=== PATIENT | female | born 1935 | race Caucasian/White ===

== ENCOUNTER → 2016-11-21 | Outpatient (CLI) | payer OTHER ==
[~2016-11-21] MED LIST: /WARF25TA OR; ACET65TA OR; KEFL500C OR; MELOPOW PO; PERC5TAB8 OR; POTA-77 PO; TRIAMTERENE; TRIAMTERENE PO; VITAMIN C PO
[2016-11-21 08:01] LABS: MEAN CORPUSCULAR HEMOGLOBIN 31.9 pg (27.0-33.0); MEAN CORPUSCULAR HGB CONC 32.4 g/dl (32.0-36.5); MEAN CORPUSCULAR VOLUME 98.4 fl (80.0-96.0); RED CELL DISTRIBUTION WIDTH 12.8 % (11.5-14.5); WHITE BLOOD COUNT 4.5 10^3/uL (4.0-10.0)
[2016-11-21 08:17] LABS: ALBUMIN 3.7 GM/DL (3.2-5.2); ALBUMIN/GLOBULIN RATIO 0.97 (1.00-1.93); ALKALINE PHOSPHATASE 82 U/L (45-117); ALT/SGPT 29 U/L (12-78); ANION GAP 5 MEQ/L (8-16); AST/SGOT 29 U/L (15-37); BILIRUBIN,TOTAL 0.6 MG/DL (0.2-1.0); BLOOD UREA NITROGEN 24 MG/DL (7-18); CALCIUM LEVEL 8.9 MG/DL (8.8-10.2); CARBON DIOXIDE LEVEL 33 MEQ/L (21-32); CHLORIDE LEVEL 104 MEQ/L (98-107); CHOLESTEROL LEVEL 123 MG/DL (<200); CREATININE FOR GFR 0.75 MG/DL (0.55-1.02); GLOMERULAR FILTRATION RATE > 60.0 (>32); GLUCOSE, FASTING 94 MG/DL (83-110); POTASSIUM SERUM 3.6 MEQ/L (3.5-5.1); SODIUM LEVEL 142 MEQ/L (136-145); TOTAL PROTEIN 7.5 GM/DL (6.4-8.2); TRIGLYCERIDES LEVEL 74 MG/DL (<150)
[2016-11-21 08:29] LABS: BANDS 1 % (< 11); EOSINOPHILS 4 % (0-5)
== END ==
LOC: M LAB 07:29
PROVIDERS: ATTEND Family Medicine
DX: E11.9 Type 2 diabetes mellitus without complications (principal); I10 Essential (primary) hypertension

== ENCOUNTER → 2018-02-14 | Outpatient (REF) | payer OTHER ==
[~2018-02-14] MED LIST changes: +ATOR1TAB19 PO; +LISI20TA3 PO; +MULT1TAB10 PO; +TYLE325T5 PO
[2018-02-14 12:59] LABS: BASO % 0.4 % (0.0-1.0); EOS # 0.1 10^3/uL (0.0-0.50); HEMATOCRIT 42.2 % (36.0-47.0); HEMOGLOBIN 13.5 g/dl (12.0-15.5); LYMPH # 1.3 10^3/uL (1.5-4.5); LYMPH % 28.7 % (24.0-44.0); MONO # 0.5 10^3/uL (0.0-0.8); MONO % 11.6 % (0.0-5.0); NEUTROPHILS # 2.6 10^3/uL (1.8-7.7); NEUTROPHILS % 57.1 % (36.0-66.0); PLATELET COUNT, AUTOMATED 128 10^3/uL (150-450); RED BLOOD COUNT 4.22 10^6/uL (4.00-5.40); WHITE BLOOD COUNT 4.6 10^3/uL (4.0-10.0)
[2018-02-14 13:04] LABS: ALBUMIN 3.6 GM/DL (3.2-5.2); ALT/SGPT 25 U/L (12-78); BILIRUBIN,TOTAL 0.4 MG/DL (0.2-1.0); BLOOD UREA NITROGEN 19 MG/DL (7-18); CALCIUM LEVEL 8.6 MG/DL (8.8-10.2); CARBON DIOXIDE LEVEL 32 MEQ/L (21-32); CHLORIDE LEVEL 105 MEQ/L (98-107); CHOLESTEROL LEVEL 123 MG/DL (<200); CHOLESTEROL RISK RATIO 2.411 (<5); CREATININE FOR GFR 0.78 MG/DL (0.55-1.30); GLOMERULAR FILTRATION RATE > 60.0 (>32); GLUCOSE, FASTING 95 MG/DL (70-100); HDL CHOLESTEROL 51 MG/DL (>40); LDL CHOLESTEROL 58 MG/DL (<100); NON-HDL-C 72 MG/DL; SODIUM LEVEL 143 MEQ/L (136-145); TOTAL PROTEIN 7.3 GM/DL (6.4-8.2); TRIGLYCERIDES LEVEL 70 MG/DL (<150)
== END ==
LOC: M LABDRWAD 12:10
PROVIDERS: ATTEND Family Medicine
DX: E11.9 Type 2 diabetes mellitus without complications (principal)

== ENCOUNTER 2018-05-22 18:42 | Inpatient (IN) | payer MEDICARE, OTHER ==
[~2018-05-22] VITALS: Ht 170.2 cm; Wt 80.7 kg
[~2018-05-22 18:42] MED LIST changes: -/WARF25TA OR; +COUM1TAB18 OR
[2018-05-22] MEDS ORDERED: NS 1,000 ML IV ONE (19:30)
[2018-05-22] MEDS ORDERED: ONDANSETRON 4MG/2ML VIAL (J2405) IV ONE (19:30)
[2018-05-22 19:36] LABS: BASO % 0.2 % (0.0-1.0); HEMATOCRIT 46.9 % (36.0-47.0); HEMOGLOBIN 15.6 g/dl (12.0-15.5); LYMPH # 0.5 10^3/uL (1.5-4.5); LYMPH % 8.2 % (24.0-44.0); MEAN CORPUSCULAR HEMOGLOBIN 31.8 pg (27.0-33.0); MEAN CORPUSCULAR HGB CONC 33.3 g/dl (32.0-36.5); MEAN CORPUSCULAR VOLUME 95.7 fl (80.0-96.0); MONO # 0.2 10^3/uL (0.0-0.8); MONO % 2.6 % (0.0-5.0); NEUTROPHILS # 5.1 10^3/uL (1.8-7.7); NEUTROPHILS % 88.8 % (36.0-66.0); PLATELET COUNT, AUTOMATED 137 10^3/uL (150-450); WHITE BLOOD COUNT 5.7 10^3/uL (4.0-10.0)
[2018-05-22 19:47] LABS: INR 1.11; PARTIAL THROMBOPLASTIN TIME 26.8 SECONDS (25.4-37.6); PROTHROMBIN TIME 14.5 SECONDS (12.1-14.4)
[2018-05-22] MEDS: MORPHINE 2 MG/ML 1ML SYRINGE (J2270) IV PRN ×2 (19:48→20:44)
[2018-05-22 19:54] LABS: ALBUMIN 3.9 GM/DL (3.2-5.2); ALT/SGPT 32 U/L (12-78); BILIRUBIN,DIRECT 0.2 MG/DL (0.0-0.2); BILIRUBIN,TOTAL 0.5 MG/DL (0.2-1.0); BLOOD UREA NITROGEN 15 MG/DL (7-18); CALCIUM LEVEL 9.1 MG/DL (8.8-10.2); CARBON DIOXIDE LEVEL 21 MEQ/L (21-32); CHLORIDE LEVEL 104 MEQ/L (98-107); CPK CREATINE PHOSPHOKINASE 80 U/L (26-192); CREATININE FOR GFR 0.83 MG/DL (0.55-1.30); GLOMERULAR FILTRATION RATE > 60.0 (>32); GLUCOSE, FASTING 193 MG/DL (70-100); LIPASE 82 U/L (73-393); MB/CK RELATIVE INDEX 4.12 (< OR =4); POTASSIUM SERUM 2.8 MEQ/L (3.5-5.1); SODIUM LEVEL 138 MEQ/L (136-145); TOTAL PROTEIN 7.6 GM/DL (6.4-8.2); TROPONIN I 0.02 NG/ML (< 0.10)
[2018-05-22] MEDS ORDERED: POTASSIUM CHLORIDE 10 MEQ SR TABLET PO ONE (20:00)
[2018-05-22] MEDS ORDERED: ISOVUE-370 76% 100ML VIAL (Q9967) As Ordered ONE (20:25)
[2018-05-22] MEDS ORDERED: PIPERACILLIN/TAZOBACTAM SOD 3.375 GM in D5W MINI-BAG PLUS 50 ML IV ONE (20:45)
--- NOTE | 2018-05-22 20:59 | REP ---
Clinical: Abdominal pain and diarrhea. Technique: Axial contrast enhanced images from the lung bases to the pubic symphysis with coronal and sagittal re-formations using 100 ml Isovue 370 intravenous contrast material. Findings: Severe portomesenteric vein gas is appreciated with in the portal vein and extensively within the liver as well as branches of the superior mesenteric vein extending to the right lower quadrant. There is associated pneumatosis coli as well as diffusely dilated fluid-filled loops of large bowel and dilated fluid-filled small bowel. These findings require mediated tension as bowel infarction is suspected. No free air is identified. Spleen, pancreas, bilateral adrenal glands and right kidney are normal. The gallbladder is distended and includes multiple large gallstones measuring up to approximately 2.3 cm without evidence for acute cholecystitis. The left kidney includes 10 cm cyst. Pelvis demonstrates normal bladder. The uterus is incompletely evaluated due to beam-hardening artifact from left hip prosthesis. No ascites. No significant adenopathy. Atherosclerotic changes to the aorta and vasculature without aneurysm. Musculoskeletal structures demonstrate degenerative changes. Lung bases demonstrate chronic interstitial changes. Impression: 1. Severe findings including portomesenteric vein gas including extensive gas within the liver as well as branches of the superior mesenteric vein extending to the right lower quadrant with pneumatosis colonic, dilated fluid filled large bowel and dilated loops of small bowel. These findings are ominous and highly suspicious for underlying bowel infarction. Immediate surgical consultation is required. 2. These findings were immediately relayed to the ER physician. 3. Further less urgent and chronic findings as described above. Electronically Signed by Shiva Herndon MD 05/22/2018 08:51 P
[2018-05-22] MEDS ORDERED: NS IV ONE (21:00)
[2018-05-22] MEDS ORDERED: DILUENT IV ONE (21:00)
[2018-05-22] MEDS ORDERED: PRESCAP6 PO (21:12)
[2018-05-22] MEDS ORDERED: ATOR1TAB19 PO (21:12)
[2018-05-22] MEDS ORDERED: GLUCAGON FOR INJ 1 MG VIAL (J1610) As Ordered ONE (21:40)
[2018-05-22] MEDS ORDERED: KCL 10MEQ/100ML SWI (KRUN) 100 ML IV SCH (22:00)
--- NOTE | 2018-05-22 22:16 | ECGEPIP ---
Stationary ECG Study [facility] - ED Test Date: 2018-05-22 Pat Name: CHERRI BLOOD Department: Room: - Gender: F Animal Warden: gt : 1935 Requested By: SKYLAR Finney Order Number: [id number] Reading MD: Harsha Aguilar Measurements Intervals [place] Rate: 141 P: 29 OK: 77 QRS: -39 QRSD: 145 T: 149 QT: 286 QTc: 439 Interpretive Statements SINUS TACHYCARDIA WITH SHORT OK INTERVAL LEFT AXIS DEVIATION LEFT BUNDLE BRANCH BLOCK NO PRIORS FOR COMPARISON Electronically Signed On 05-22-2018 22:16:16 EDT by Harsha Aguilar
[2018-05-22] MEDS ORDERED: ETOMIDATE INJ 20MG/10ML VIAL As Ordered ONE (22:20)
[2018-05-22] MEDS ORDERED: ONDANSETRON 4MG/2ML VIAL (J2405) As Ordered ONE (22:20)
[2018-05-22] MEDS ORDERED: LIDOCAINE 2% INJ 100 MG/5 ML SDV (FOR ANES.) As Ordered ONE (22:20)
[2018-05-22] MEDS ORDERED: dexameTHASONE 4 MG/ML 1ML VIAL (J1100) As Ordered ONE (22:20)
[2018-05-22] MEDS ORDERED: PROPOFOL 200 MG/20 ML VIAL As Ordered ONE (22:20)
[2018-05-22] MEDS ORDERED: fentaNYL 250 MCG/5 ML INJECTION (J3010) As Ordered ONE (22:20)
[2018-05-22] MEDS ORDERED: PHENYLEPHRINE INJ 10MG/ML VIAL (J2370) As Ordered ONE (22:38)
[2018-05-22] MEDS: KCL 10MEQ/100ML SWI (KRUN) 100 ML IV SCH ×2 (22:45→23:45)
[2018-05-22] MEDS ORDERED: KCL 10MEQ/100ML SWI (KRUN) X 2 DOSES (20MEQ TOTAL) IV SCH ×2 (22:45)
[2018-05-22] MEDS ORDERED: ROCURONIUM BROMIDE 50 MG/5 ML VIAL As Ordered ONE (22:47)
[2018-05-22] MEDS ORDERED: BUPIVACAINE LIPOSOME/PF 1.3% 20ML VIAL (13.3MG/ML)(EXPAREL)(C9290 PER1MG) As Ordered ONE (23:29)
[2018-05-22] MEDS ORDERED: BUPIVACAINE HCL 0.25% 30 ML VIAL As Ordered ONE (23:29)
[2018-05-22] MEDS ORDERED: LABETALOL HCL 100 MG/20 ML VIAL As Ordered ONE (23:53)
[2018-05-23] VITALS (37 sets, daily range): BP systolic 92–146; BP diastolic 44–62
[2018-05-23] MEDS ORDERED: fentaNYL 100 MCG/2 ML INJECTION (J3010) IV PRN
[2018-05-23] MEDS ORDERED: HYDROMORPHONE HCL 0.5 MG/ 0.5 ML SYRINGE (J1170 PER 1) IV PRN
[2018-05-23] MEDS ORDERED: PERCOCET 5MG/325MG TAB PO PRN
[2018-05-23] MEDS ORDERED: LR 1,000 ML IV SCH
[2018-05-23] MEDS ORDERED: ONDANSETRON 4MG/2ML VIAL (J2405) IV PRN
[2018-05-23] MEDS: NS 1,000 ML IV SCH ×3 (00:01→16:01)
[2018-05-23] MEDS ORDERED: IPRATROPIUM 0.5MG/ALBUTEROL 2.5MG INH SOL UD 3ML (DUONEB)(J7620) NEB PRN (00:15)
[2018-05-23] MEDS ORDERED: PROMETHAZINE INJ 25 MG/ML VIAL (J2550) IV PRN (00:15)
[2018-05-23] MEDS ORDERED: METOCLOPRAMIDE INJ 10MG/2ML VIAL (J2765) IV PRN ×2 (00:15)
[2018-05-23 00:30] LABS: ABG BASE EXCESS -13.3 (-2.0-2.0); ABG PARTIAL PRESSURE CO2 31.5 mmHg (35.0-45.0); ABG PARTIAL PRESSURE O2 120.6 mmHg (75.0-100.0); ABG STANDARD HCO3 14.3 MEQ/L (22.0-26.0); ABG TOTAL CO2 13.9 MEQ/L (23.0-31.0); MEAN CORPUSCULAR HEMOGLOBIN 31.9 pg (27.0-33.0); MEAN CORPUSCULAR HGB CONC 32.3 g/dl (32.0-36.5); MEAN CORPUSCULAR VOLUME 98.7 fl (80.0-96.0); PLATELET COUNT, AUTOMATED 108 10^3/uL (150-450); RED BLOOD COUNT 3.95 10^6/uL (4.00-5.40)
[2018-05-23 00:38] LABS: HEMOGLOBIN 12.6 g/dl (12.0-15.5)
[2018-05-23 00:39] LABS: ABG pH (ARTERIAL) 7.232 UNITS (7.350-7.450)
[2018-05-23] MEDS: KCL 10MEQ/100ML SWI (KRUN) 100 ML IV SCH ×2 (00:45→01:45)
[2018-05-23 00:54] LABS: ALT/SGPT 38 U/L (12-78); BILIRUBIN,TOTAL 0.6 MG/DL (0.2-1.0); BLOOD UREA NITROGEN 13 MG/DL (7-18); CALCIUM LEVEL 6.7 MG/DL (8.8-10.2); CARBON DIOXIDE LEVEL 17 MEQ/L (21-32); CHLORIDE LEVEL 114 MEQ/L (98-107); CHOLESTEROL LEVEL 56 MG/DL (< 200); CPK CREATINE PHOSPHOKINASE 58 U/L (26-192); GLOMERULAR FILTRATION RATE > 60.0 (>32); GLUCOSE, FASTING 148 MG/DL (70-100); LDH LACTATE DEHYDROGENASE 194 U/L (84-246); POTASSIUM SERUM 3.6 MEQ/L (3.5-5.1); SODIUM LEVEL 140 MEQ/L (136-145); TOTAL PROTEIN 4.1 GM/DL (6.4-8.2); TRIGLYCERIDES LEVEL 47 MG/DL (<150)
[2018-05-23] MEDS: metroNIDAZOLE 500 MG in APPROPRIATE DILUENT 1 EA IV SCH ×3 (01:00→17:11)
[2018-05-23] MEDS: MORPHINE 4 MG/ML 1ML VIAL/SYRINGE (J2270) IV PRN ×3 (01:51→09:01)
[2018-05-23] MEDS: IPRATROPIUM 0.5MG/ALBUTEROL 2.5MG INH SOL UD 3ML (DUONEB)(J7620) NEB SCH ×4 (02:00→19:13)
[2018-05-23] MEDS: CIPROFLOXACIN 400 MG in APPROPRIATE DILUENT 1 EA IV SCH ×2 (02:00→14:22)
[2018-05-23] MEDS ORDERED: PREVNAR 13 VACCINE SYRINGE (CPT CODE:90670) IM SCH (06:30)
--- NOTE | 2018-05-23 06:52 | CCN ---
DATE: 05/23/2018 Critical care time was 59 minutes. This excludes all procedures. Dea is an 82-year-old female that was taken urgently to the operating room for ischemic colitis, had right colectomy with reanastomosis, actually tolerated the procedure surprisingly well despite the appearance of the CT scan with the severity of pneumobilia and the air in the portal venous system. I was called at the time that she was in the recovery room. On my arrival the patient was extubated. She was able to speak, telling me that she had no pain, no dyspnea, however, she was slightly sleepy. I had ordered an arterial blood gases, it is still currently pending. Oxygen saturation at that point in time was 96% on non-rebreather. She had a right radial arterial line in place. History of breast cancer with lymph node dissection on the left. Patient received labetalol for hypertension perioperatively. Temperature is 97.6, pulse was 88 now in sinus rhythm. The patient did appear to have atrial fibrillation during the time of surgery. Respiratory rate 20, blood pressure is 103/58 with a mean arterial pressure of 73, oxygen saturation now 99% on 2 liters. PHYSICAL EXAMINATION General: Patient is sleepy, but arousable, able to answer questions. Sclerae clear and anicteric. Pupils equal and reactive to light. Mucous membranes are moist. Tongue is midline. Neck is supple. No tracheal deviation or mass. Lymph: No cervical, supraclavicular or axillary adenopathy. Cardiac: Currently regular S1-S2 without audible murmur, rub or gallop. No elevated JVP. No systemic edema. Pulmonary: Clear to auscultation without rales, rhonchi, wheezes. No accessory muscle use. No dullness to percussion. Abdomen: Fresh postop abdomen with taping. There is a JOSIE drain with serosanguineous fluid and a gastric tube draining clear yellow fluid. Extremities: No cyanosis, clubbing or edema. Skin: No rash, jaundice or bruising. Musculoskeletal: Normal muscle tone for stated age. No evidence of joint effusion, fracture or trauma. LABORATORY EVALUATION: Most recent white blood cell count is 6.0, hemoglobin is 12.6 with a platelet count of 108. Arterial blood gas postoperatively shows a pH of 7.23, pCO2 of 32 and a PaO2 of 121. Chemistry panel is still pending. Lactic acidosis prior to procedure was 2.7 and the patient was hypokalemic however had this replaced. IMPRESSION: 1. Bowel ischemia with lactic acidosis at risk for developing sepsis. Will continue to monitor closely in the ICU for need for more aggressive volume resuscitation and for vasopressor therapy. At this point in time, holding antihypertensives have therapy. 2. Paroxysmal atrial fibrillation occurred when the patient was a very acutely ill, now in sinus rhythm. May require reevaluation before discharge to see whether the patient is a candidate for anticoagulation. 3. Hypertension. Antihypertensives on hold currently. May require treatment for fluctuations in blood pressure therefore will be closely followed in the ICU. 4. Hypoxia. No evidence ARDS. Currently doing well without mechanical ventilation. Given the severity of the surgery and presentation, the patient is at risk for requiring reintubation. Respiratory status will be closely monitored. I have reviewed the surgeons orders at this point in time. I agree with the current management. I will continue to follow the patient. JENNIFER
[2018-05-23] MEDS: PANTOPRAZOLE 40MG INJ (PROTONIX) (C9113) IV SCH (08:44)
[2018-05-23] MEDS: SIMETHICONE 80 MG CHEW TAB PO SCH ×4 (09:08→20:30)
[2018-05-23 09:42] LABS: HEMOGLOBIN 14.4 g/dl (12.0-15.5); MEAN CORPUSCULAR HEMOGLOBIN 32.4 pg (27.0-33.0); MEAN CORPUSCULAR HGB CONC 33.5 g/dl (32.0-36.5); MEAN CORPUSCULAR VOLUME 96.6 fl (80.0-96.0); PLATELET COUNT, AUTOMATED 123 10^3/uL (150-450); RED BLOOD COUNT 4.45 10^6/uL (4.00-5.40)
[2018-05-23] MEDS ORDERED: K-PHOS ORIGINAL (POT.ACID PHOSPHATE) 500MG TAB PO ONE (10:00)
[2018-05-23] MEDS ORDERED: NS 500 ML IV ONE (10:00)
[2018-05-23 10:12] LABS: ALBUMIN 2.3 GM/DL (3.2-5.2); ALT/SGPT 42 U/L (12-78); BILIRUBIN,TOTAL 0.7 MG/DL (0.2-1.0); BLOOD UREA NITROGEN 16 MG/DL (7-18); CALCIUM LEVEL 7.8 MG/DL (8.8-10.2); CARBON DIOXIDE LEVEL 18 MEQ/L (21-32); CHLORIDE LEVEL 113 MEQ/L (98-107); CHOLESTEROL LEVEL 54 MG/DL (< 200); CPK CREATINE PHOSPHOKINASE 118 U/L (26-192); CREATININE FOR GFR 0.79 MG/DL (0.55-1.30); GLOMERULAR FILTRATION RATE > 60.0 (>32); GLUCOSE, FASTING 136 MG/DL (70-100); LDH LACTATE DEHYDROGENASE 206 U/L (84-246); PHOSPHORUS LEVEL 2.6 MG/DL (2.5-4.9); POTASSIUM SERUM 3.5 MEQ/L (3.5-5.1); SODIUM LEVEL 139 MEQ/L (136-145); TOTAL PROTEIN 5.2 GM/DL (6.4-8.2); TRIGLYCERIDES LEVEL 53 MG/DL (<150)
--- NOTE | 2018-05-23 10:22 | REP ---
Portable chest x-ray: Single view. History: Hypoxia. Comparison study: March 08, 2010. Findings: Oxygen delivery tubing and EKG monitoring electrodes are seen. There are surgical clips in the left axillary soft tissues as before. The lungs are exposed at a relatively low level of inspiration similar to the prior study. There is plate-like atelectasis in the left perihilar region. There is slight blunting of the left lateral pleural angle. Lung johnson are otherwise clear. Cardiomediastinal silhouette is unchanged. Impression: Slight blunting of the left lateral pleural angle. Relatively low level of inspiration. Electronically Signed by Dequan Bell MD 05/23/2018 11:10 A
[2018-05-23] MEDS: ALVIMOPAN 12 MG CAPSULE (ENTEREG) PO SCH ×2 (10:28→20:30)
--- NOTE | 2018-05-23 10:41 | CCN ---
DATE: 05/23/2018 Ms. Henning is seen in the ICU. She underwent right colectomy and reanastomosis yesterday. She is awake and alert. She denies any pain. She denies any shortness of breath. She has been afebrile. Her urine output has been 100 mL in about 4 hours. Her lactic acid has been trending down and her white count is within normal limits. PHYSICAL EXAMINATION: Vitals: Temperature is 97.2, pulse 88, respiratory rate is 20, blood pressure is 110/55 both peripherally and anteriorly with a MAP that is between 70 at 75. O2 saturation is 94% on 3 liters. General: The patient is alert and oriented. She speaks in complete sentences. HEENT: Head is normocephalic, atraumatic. Moist mucous membranes. Tongue is midline. Neck is supple with no cervical lymphadenopathy or JVD. Trachea is midline. Cardiac: Regular rate and rhythm. S1-S2 no murmurs. Pulmonary: Clear to auscultation without rales, rhonchi, wheezes or crackles. No accessory muscle use. Abdomen: Positive bowel sounds. Dressing in place. JOSIE drain. Extremities: No clubbing, cyanosis or edema. Skin is warm and dry. LABORATORY DATA: WBC 6.0, hemoglobin 12.6, hematocrit 39.0, platelets 108. Sodium 140, potassium 3.6, chloride 114, carbon dioxide 17, BUN 13, creatinine 0.70, glucose 148, lactic acid 3.4, calcium 6.7, phosphorus 2.00, total bili 0.6, AST 63, ALT 38, alk phos 51, LD 194, CK 58, total protein 4.1, albumin 2.0, triglycerides 47, cholesterol 56. ABG pH 7.232, pCO2 is 31.5, pO2 is 120.6, HCO3 is 13.0. ASSESSMENT/PLAN: 1. Bowel ischemia with lactic acidosis at risk for developing sepsis. The patient is being monitored closely in the ICU. Her lactic acid has been trending down and is most recently at 3.4 which is down from 4.7. She has not required vasopressor therapy. Her antihypertensives have been held. We will obtain a portable chest x-ray. She will also be given a IV fluid bolus as her urine output is borderline. 2. Hypoxia. The patient is on supplemental oxygen therapy with nasal cannula. There is no evidence of ARDS. She is not required reintubation. Respiratory status will continue to be monitored. 3. Hypophosphatemia. The patient's phosphorus level was low at 2.0. We will give her a dose of K-Phos and continue to monitor. Edited 05/23/2018 @ 1045 [facility]
[2018-05-23] MEDS ORDERED: MORPHINE 4 MG/ML 1ML VIAL/SYRINGE (J2270) IV PRN (11:00)
[2018-05-23] MEDS: KETOROLAC 30 MG/ML VIAL (J1885) IV SCH ×3 (11:12→20:31)
[2018-05-23] MEDS ORDERED: METOPROLOL 5 MG/5 ML VIAL As Ordered ONE (20:06)
[2018-05-23] MEDS ORDERED: METOPROLOL 5 MG/5 ML VIAL IV STA (20:14)
[2018-05-23] MEDS ORDERED: METOPROLOL TART 25 MG TABLET PO STA (20:23)
[2018-05-23] MEDS ORDERED: diltiaZEM 125 MG in NS 100 ML IV STA (21:01)
[2018-05-23] MEDS ORDERED: diltiaZEM 125 MG in NS 100 ML IV SCH (21:30)
[2018-05-24] VITALS (18 sets, daily range): BP systolic 80–140; BP diastolic 53–71
[2018-05-24] MEDS: NS 1,000 ML IV SCH ×3 (00:01→15:00)
[2018-05-24] MEDS: metroNIDAZOLE 500 MG in APPROPRIATE DILUENT 1 EA IV SCH ×3 (00:26→16:36)
[2018-05-24] MEDS: IPRATROPIUM 0.5MG/ALBUTEROL 2.5MG INH SOL UD 3ML (DUONEB)(J7620) NEB SCH ×4 (00:59→19:31)
[2018-05-24] MEDS: CIPROFLOXACIN 400 MG in APPROPRIATE DILUENT 1 EA IV SCH ×2 (02:00→14:54)
[2018-05-24] MEDS: MORPHINE 4 MG/ML 1ML VIAL/SYRINGE (J2270) IV PRN (02:59)
[2018-05-24] MEDS: KETOROLAC 30 MG/ML VIAL (J1885) IV SCH (05:00)
[2018-05-24 06:37] LABS: HEMATOCRIT 35.5 % (36.0-47.0); MEAN CORPUSCULAR HEMOGLOBIN 31.5 pg (27.0-33.0); MEAN CORPUSCULAR HGB CONC 32.4 g/dl (32.0-36.5); MEAN CORPUSCULAR VOLUME 97.3 fl (80.0-96.0); PLATELET COUNT, AUTOMATED 110 10^3/uL (150-450); RED BLOOD COUNT 3.65 10^6/uL (4.00-5.40); WHITE BLOOD COUNT 10.4 10^3/uL (4.0-10.0)
[2018-05-24 06:45] LABS: HEMOGLOBIN 11.5 g/dl (12.0-15.5)
[2018-05-24 07:04] LABS: ALBUMIN 1.9 GM/DL (3.2-5.2); BILIRUBIN,TOTAL 0.4 MG/DL (0.2-1.0); CREATININE FOR GFR 0.99 MG/DL (0.55-1.30); GLOMERULAR FILTRATION RATE 57.2 (>32); POTASSIUM SERUM 3.6 MEQ/L (3.5-5.1); TOTAL PROTEIN 4.5 GM/DL (6.4-8.2)
[2018-05-24] MEDS ORDERED: NS 500 ML IV ONE ×2 (08:00→13:00)
[2018-05-24] MEDS ORDERED: DIGOXIN 0.25 MG TAB PO ONE ×2 (08:45→14:45)
[2018-05-24] MEDS: PANTOPRAZOLE 40MG INJ (PROTONIX) (C9113) IV SCH (08:57)
[2018-05-24] MEDS: SIMETHICONE 80 MG CHEW TAB PO SCH ×4 (08:57→20:38)
[2018-05-24] MEDS: ALVIMOPAN 12 MG CAPSULE (ENTEREG) PO SCH ×2 (08:57→20:38)
[2018-05-24] MEDS ORDERED: METOPROLOL TART 12.5 MG PER 1/2 TAB PO ONE ×3 (09:00→23:00)
--- NOTE | 2018-05-24 09:23 | HPE ---
DATE OF ADMISSION: 05/23/2018 CHIEF COMPLAINT: Abdominal pain, acute onset, approximately 8 hours prior to admission, with history of diarrhea over the last 48 hours. BRIEF HISTORY OF PRESENT ILLNESS: The patient is an 82-year-old white female, who presents with abdominal pain that started about 48 hours ago, and after the first 24 hours she states that the diarrhea and abdominal pain that she was having seemed to improve, and then over the next day she seemed to be feeling better, having less abdominal pain, and then acutely developed severe abdominal pain on the day of admission and this was quite severe throughout her abdomen and presents to the emergency room with severe unrelenting abdominal pain persistent in nature with a normal white count, however with a lactic acidosis. Imaging, which shows probable ischemic colon with pneumobilia and air what looks like it is in the portal system. I was asked to see her for additional recommendations. Past medical history is significant for a history of hypertension, history of paroxysmal atrial fibrillation, history of hypercholesterolemia. Medications include: - atorvastatin - lisinopril - hydrochlorothiazide - PreserVision Physical exam reveals an 82-year-old female, who is not significantly hypotensive and septic at this moment, but she has severe abdominal pain rising in bed. Any abdominal palpation or movement actually causes severe pain. HEENT is unremarkable. Neck supple without adenopathy. Lungs are clear to auscultation. Heart is irregularly irregular. Abdomen is diffusely distended, tympanitic, but with guarding, rebound and diffuse peritoneal signs. IMPRESSION/PLAN: The patient has evidence of acute abdomen consistent with possible ischemic gut, possible infarcted colon. At this point, we will plan on an exploratory laparotomy with possible bowel resection. She understands the risks as well as benefits to include but not limited to infection, bleeding, damage to surrounding structures, as well as need for further operative intervention. We had a long discussion concerning that her postoperative course could be extremely tiera and that she does have risk of renal failure, respiratory failure and possibly . She understands and would like to proceed with operative intervention.
[2018-05-24 09:41] LABS: PHOSPHORUS LEVEL 2.9 MG/DL (2.5-4.9)
--- NOTE | 2018-05-24 09:47 | CCN ---
DATE: 05/24/2018 SUBJECTIVE: Patient was seen and examined today. She currently notes improvement in her abdominal pain, although she does state that she still continues to have pain. Last night the patient did go into atrial fibrillation with rapid ventricular response. At the time the patient was given Lopressor 25 mg by mouth by two IV doses of Lopressor 5 mg. The patient was started on diltiazem drip. She did convert to sinus rhythm and she was rate controlled. This morning she was given Lopressor 12.5 mg, her diltiazem drip was stopped and she did become tachycardic and in and out of atrial fibrillation. Throughout all of her episode of atrial fibrillation with RVR she denied any shortness of breath or chest pain. She denies ever having a history of atrial fibrillation in the past. From a pulmonary standpoint, the patient continues to have oxygen saturation of 96% on 2.0 liters nasal cannula. Her pressures have stayed stable and she was never placed on any vasopressor therapy. The patient currently has no other new complaints. OBJECTIVE: VITALS: Temperature 97.9, pulse 72, blood pressure 112/49, pulse oximetry 96% on 2 liters nasal cannula. GENERAL: Patient is awake, alert and oriented. She does not appear to be in any acute distress. She is lying in bed and appears comfortable. She does have 2 liters nasal cannula. HEENT: Atraumatic, normocephalic. Eyes nonicteric. Trachea is midline. Nasal cannula in place. Dentition is fair. CARDIOVASCULAR: Normal S1 and S2, irregularly irregular rate and rhythm, slightly tachycardic. No clicks, rubs or murmurs noted on examination. No jugular venous distention (JVD). No carotid bruits. PULMONARY: Clear vesicular breath sounds bilaterally. Good respiratory effort. No wheezes, rhonchi or rales noted. No crackles. ABDOMINAL: Soft, nondistended. Tenderness to palpation. The patient has bandages over site of colostomy. Cristhian-Torres drain is present and draining serosanguineous fluid. Absent bowel sounds. EXTREMITIES: 2+ posterior tibial pulses bilaterally. No edema. Thromboembolic deterrent stockings (TEDS) and sequentials in place. PSYCH: Mood and affect appear appropriate. LABORATORIES: Hematology: White blood cell 10.4, hemoglobin 11.5, hematocrit 35.5, platelet count 110. Chemistries: Sodium 142, potassium 3.6, chloride 116, carbon dioxide 18, BUN 26, creatinine 0.99, fasting glucose 98. Calcium 7.0. AST 47, ALT 31, alkaline phosphatase 48. Phosphorous level pending. Blood cultures from 05/22 demonstrating gram positive cocci in clusters. ASSESSMENT/PLAN: 1. Atrial fibrillation with rapid ventricular response. The patient was previously treated on a diltiazem drip. She received 25 mg of by mouth Lopressor as well as 2 IV doses of Lopressor. Today her diltiazem drip was continued. She did go back into atrial fibrillation today. The patient was loaded with digoxin today. She will be started on 0.125 mg digoxin starting tomorrow. We will continue her 12.5 mg Lopressor twice a day with hold parameters. The patient does have a CHADS-VASc score of 3, demonstrating a 3.2% risk of stroke within one year. Consider initiation of anticoagulation upon discharge from the hospital. 2. Ischemic colitis. The patient is currently being followed by surgery. She is denying any increase in her pain. She was previously on ketorolac however this has been discontinued due to a decrease in the patient's urine output. 3. History of hypertension. The patient is currently on Lopressor 12.5 mg twice a day with hold parameters. Will continue to monitor. My faculty preceptor for this patient encounter was physically present during the encounter and was fully available. All aspects of the patient interview, examination, medical decision making process, and medical care plan development were reviewed and approved by the faculty preceptor. The faculty preceptor is aware and concurs with the plan as stated in the body of this note and will attest to such by his/her co-signature. Ashu Geronimo have examined Dea Blood on the morning of 05/24/2018. I attended bedside rounds with the resident. I agree with history and physical as outlined his note. The patient had atrial fibrillation overnight which I treated with diltiazem drip after her initial therapy with metoprolol caused some minimal hypotension. She was well controlled and actually converted back into sinus overnight, however, after receiving a dose of oral metoprolol this morning and being turned off diltiazem she has gone back into atrial fibrillation although better rate controlled. At this point and time we have decided to initiate digoxin loading. She is clinically stable and therefore will be transferred to a consultation from us to medicine service. Surgery is aware. Due to her low urine output we have decreased her Toradol and given her a bolus of fluid at 500 mL a hour. Urine output should be closely monitored. Patient is getting out of bed. At this point and time we will be happy to see the patient again if needed, however, she will be converted over to a medicine consult. DD: Dr. Nahid Geronimo 05/24/2018 9:55 A DT: mariah 05/24/2018 10:04 A JENNIFER
--- NOTE | 2018-05-24 09:48 | IPN ---
DATE: 05/23/2018 The patient overall has done very well overnight. She did have little bit of a drop-off of urine output but otherwise she has been afebrile. Urine outputs been adequate and her gastric tube drainage has some bilious drainage but no bloody drainage. She states that she has had some flatus without bowel movements but not any significant nausea. Her abdominal pain has been problematic but we started her on getting a little bit more pain medication and since that time she has received a little bit better resolution of her discomfort pain. Overall seems to be doing well at this point. Not complaining of any significant respiratory issues. Pulmonary/intensive care unit physicians are assisting with her care. On her physical exam, dressings clean, dry. There is some minimal serosanguineous drainage from the Cristhian-Torres drain and bilious drainage from the gastrostomy tube. Otherwise her midline dressing is dry. IMPRESSION AND PLAN: Patient status post right colectomy and typically I would anticipate with this significant inflammatory process that it would be a prolonged ileus and then she may need to have some total parenteral nutrition (TPN) at some point. But with her flatus, she may resolve sooner than I think and specifically the bowel is quite healthy appearing and mauro at the time of the operation so we may be able to see if she resolves her ileus sooner and start her on some clear liquids at some point. But at this point, I would still say supportive care is appropriate for right now. Keep her nothing by mouth, IV fluids, IV antibiotics and continue with current plans.
--- NOTE | 2018-05-24 09:50 | RO ---
DATE OF PROCEDURE: 05/22/2018 PRINCIPAL DIAGNOSIS: Gangrenous right colon/ischemic right colon. POSTOPERATIVE DIAGNOSES: Gangrenous right colon/ischemic right colon. PROCEDURE: 1. Extended right colectomy. 2. Gastrostomy tube placement. SURGEON: Roland Redmond MD MARKET SUPERINTENDENT: ANESTHESIA: General endotracheal anesthesia. ESTIMATED BLOOD LOSS (EBL): 250 mL. FLUIDS: Crystalloid. BRIEF PROCEDURE SUMMARY: The patient was brought to the operating room and was given general anesthesia. After adequate anesthesia and preoperative antibiotics were given. the patient was prepped and draped in the usual sterile fashion. Next, a midline incision was made with skin knife. Electrocautery was used to cut through skin and underlying subcutaneous tissue down through the fascia and the peritoneum was entered. The patient was incredibly distended at this time and eventually the small bowel was full air, large bowel was full of air. Once mobilizing the small bowel out of the way, I able to view the cecum which was gangrenous. With some crepitus actually in the mesentery of the bowel. The terminal ileum was transected with a BLAISE stapler and the mesentery on the colon on the right-hand side all the way up to the transverse colon was taken with [place] 60 vascular loads after mobilizing the colon off the wall and scoring the peritoneum as well as scoring and taking the colon off the duodenum. There was a sharp demarcation of the transverse colon and on the nicely viable area the bowel was transected using a BLAISE stapler. Once this bowel was removed, the abdomen was copiously irrigated until clear. There was some minimal oozing along the peritoneum but essentially the area was copiously irrigated until clear and packing was placed along this area. There was some oozing that was controlled with the Harmonic scalpel. Next, the patient had not received a nasogastric (NG) tube after multiple attempts by the anesthesiologist. I felt that she may need a prolonged NG tube/gastric drainage. Thus, a gastrostomy tube was placed, 18-Haitian, through the midportion of the stomach sutured up against the anterior abdominal wall with #2-0 Vicryl. This was a gastrojejunostomy with the portion of this inserted through the duodenum and appeared go at least into the second portion of the duodenum. Proximal portion was in the stomach. Next, this aspirated and flushed without difficulty. An anastomosis was created. After looking at the viability of the bowel and the patient had been stable without pressors, I felt that it was reasonable to perform an anastomosis. Thus, a [id number] small bowel to transverse colon anastomosis was created with a BLAISE 75 load. BLAISE 75 was used to transect the enterotomy and the bowel was imbricated on the superior aspect using #3-0 silks. The suture line on the end was also imbricated using silks. Once this was all in place and the abdomen was copiously irrigated again, a Cristhian-Torres drain was left in the bed of the dissection near the anastomosis in the right upper quadrant and the midline was closed with running PDS. The skin was loosely approximated with some ashley and dry sterile dressing was applied. The patient was awakened, and actually anesthesia felt that she was doing quite well hemodynamically as well as respiratory kendrick and they extubated her in the operating room and brought her to the recovery room hemodynamically stable and without significant respiratory compromise.
--- NOTE | 2018-05-24 13:58 | IPN ---
DATE: 05/24/2018 The patient continues to make some slow but progressive improvements after her ischemic right colon was resected. Overall, she continues to make some very good progress from a surgical standpoint and she still has been afebrile. Her white count is slightly elevated as I would have expected all along with this inflammatory process present. Hematocrit has dropped some and this is where I expected it to continue down to and thus I feel that this is more appropriate with the current blood loss intraoperatively, as well as the current septic process that she had. In any case, she continues to have obvious third spacing, abdominal wall, etc. Her Cristhian-Torres drain is serosanguineous. Otherwise, her dressing is clean and dry with some minimal serosanguineous drainage. Her gastrostomy tube is putting out some bilious fluid. IMPRESSION AND PLAN: From a pulmonary standpoint, the grinder set up operator jig feels that she is doing quite well and feels like she can be transferred to the medicine service. I feel that probably she could be transferred to progressive care unit (PCU) tomorrow if she continues to do well. The second issue is gastrointestinal, I do feel that we should be relatively slow when progressing her diet or even starting tube feeds via the J portion of the gastrostomy tube and I would like to wait and make sure that all the bilious drainage stops prior to doing this. Overall, her drainage continues to drain some serosanguineous, which is the expectation given the significant intra-abdominal inflammatory process, and I anticipate this will continue to drain and slowly will taper off over the next several days. From her standpoint, we will continue her on pain medications as necessary, IV fluids as necessary, IV antibiotics, and we will see how she does over the ensuing 24-48 hours prior to considering to clamp her G tube and checking residuals.
[2018-05-24] MEDS ORDERED: METOPROLOL TART 12.5 MG PER 1/2 TAB PO SCH ×2 (18:00→21:00)
[2018-05-24 18:38] LABS: THYROID STIMULATING HORMONE 2.27 uIU/ML (0.358-3.740)
[2018-05-24 19:42] LABS: BLOOD UREA NITROGEN 26 MG/DL (7-18); CALCIUM LEVEL 7.8 MG/DL (8.8-10.2); CARBON DIOXIDE LEVEL 19 MEQ/L (21-32); CHLORIDE LEVEL 113 MEQ/L (98-107); CREATININE FOR GFR 0.79 MG/DL (0.55-1.30); GLOMERULAR FILTRATION RATE > 60.0 (>32); GLUCOSE, FASTING 82 MG/DL (70-100); POTASSIUM SERUM 3.6 MEQ/L (3.5-5.1); SODIUM LEVEL 140 MEQ/L (136-145); TROPONIN I 0.08 NG/ML (< 0.10)
[2018-05-24] MEDS ORDERED: DIGOXIN 0.125 MG TAB PO ONE (20:45)
[2018-05-25] VITALS (7 sets, daily range): BP systolic 98–143; BP diastolic 54–82
[2018-05-25 00:04] LABS: MB/CK RELATIVE INDEX 4.31 (< OR =4); TROPONIN I 0.08 NG/ML (< 0.10)
[2018-05-25] MEDS: NS 1,000 ML IV SCH (00:08)
[2018-05-25] MEDS: IPRATROPIUM 0.5MG/ALBUTEROL 2.5MG INH SOL UD 3ML (DUONEB)(J7620) NEB SCH ×5 (00:26→23:44)
[2018-05-25] MEDS: metroNIDAZOLE 500 MG in APPROPRIATE DILUENT 1 EA IV SCH ×3 (00:48→17:26)
[2018-05-25] MEDS: CIPROFLOXACIN 400 MG in APPROPRIATE DILUENT 1 EA IV SCH ×2 (02:00→14:29)
[2018-05-25] MEDS: METOPROLOL TART 25 MG TABLET PO SCH ×3 (02:01→17:27)
[2018-05-25 05:37] LABS: HEMATOCRIT 37.3 % (36.0-47.0); HEMOGLOBIN 12.1 g/dl (12.0-15.5); MEAN CORPUSCULAR HEMOGLOBIN 31.7 pg (27.0-33.0); MEAN CORPUSCULAR HGB CONC 32.4 g/dl (32.0-36.5); MEAN CORPUSCULAR VOLUME 97.6 fl (80.0-96.0); PLATELET COUNT, AUTOMATED 115 10^3/uL (150-450); RED BLOOD COUNT 3.82 10^6/uL (4.00-5.40); WHITE BLOOD COUNT 11.6 10^3/uL (4.0-10.0)
[2018-05-25 06:00] LABS: ALBUMIN 1.9 GM/DL (3.2-5.2); ALT/SGPT 36 U/L (12-78); BILIRUBIN,TOTAL 0.4 MG/DL (0.2-1.0); BLOOD UREA NITROGEN 28 MG/DL (7-18); CALCIUM LEVEL 7.7 MG/DL (8.8-10.2); CARBON DIOXIDE LEVEL 18 MEQ/L (21-32); CHLORIDE LEVEL 116 MEQ/L (98-107); CREATININE FOR GFR 0.83 MG/DL (0.55-1.30); GLOMERULAR FILTRATION RATE > 60.0 (>32); GLUCOSE, FASTING 82 MG/DL (70-100); POTASSIUM SERUM 3.6 MEQ/L (3.5-5.1); SODIUM LEVEL 142 MEQ/L (136-145); TOTAL PROTEIN 5.1 GM/DL (6.4-8.2)
[2018-05-25] MEDS: SIMETHICONE 80 MG CHEW TAB PO SCH ×4 (09:26→20:22)
[2018-05-25] MEDS: DIGOXIN 0.125 MG TAB PO SCH (09:27)
[2018-05-25] MEDS: ALVIMOPAN 12 MG CAPSULE (ENTEREG) PO SCH ×2 (09:27→20:22)
[2018-05-25] MEDS: PANTOPRAZOLE 40MG INJ (PROTONIX) (C9113) IV SCH (09:27)
[2018-05-25] MEDS: KCL 20MEQ IN D5/0.45NS 1000ML 1,000 ML IV SCH (11:11)
--- NOTE | 2018-05-25 11:15 | IPNPDOC ---
Subjective General Date/Time Seen The patient was seen on 05/25/18 at 09:07. Subject Chief Complaint/History Patient seen today for Dr. Redmond. She reports feeling hungry. No flatus or BMs yesterday. She has been able to sit up on the chair. She was noted to be in rapid A. fib last night she remained hemodynamically stable. She denies any ongoing chest pains. She is back to sinus rhythm with a rate in the high 90s t his morning. She denies any ongoing abdominal discomfort and on review of the EMR has not really taken much narcotic pain medications at all. She has a gastrostomy tube to gravity drainage. She remains nothing by mouth. Current Medications Current Medications Current Medications Albuterol/ Ipratropium (Duoneb (Ipr 0.5mg/Alb 2.5mg)) 3 ml Q2HP PRN NEB SOB/WHEEZING; Start 05/23/18 at 00:15 Albuterol/ Ipratropium (Duoneb (Ipr 0.5mg/Alb 2.5mg)) 3 ml RQ6H NEB Last administered on 05/25/18at 07:23; Start 05/23/18 at 02:00 Alvimopan (Entereg) 12 mg BID PO Last administered on 05/24/18at 20:38; Start 05/23/18 at 09:00; Stop 05/30/18 at 08:59 Ciprofloxacin 400 mg/IV Miscellaneous Supplies 200 ml @ 200 mls/hr Q12H IV Last administered on 05/25/18at 02:00; Start 05/23/18 at 02:00 Digoxin (Lanoxin) 0.125 mg DAILY PO ; Start 05/25/18 at 09:00 Diltiazem HCl 125 mg/Sodium Chloride 125 ml @ 5 mls/hr Q24H IV Last administered on 05/23/18at 21:53; Start 05/23/18 at 21:30; Stop 05/24/18 at 11:07; Status DC Diltiazem HCl 125 mg/Sodium Chloride 125 ml @ 5 mls/hr Q24H STAT IV ; Start 05/23/18 at 21:01; Stop 05/24/18 at 21:00; Status Cancel Fentanyl Citrate (Sublimaze) 25 mcg Q5MP PRN IV MODERATE PAIN (PS 4-7); Start 05/23/18 at 00:00; Stop 05/23/18 at 01:45; Status DC Home Med (Med Rec Complete!) ASDIRECTED XX ; Start 05/22/18 at 21:15; Stop 05/22/18 at 21:15; Status DC Hydromorphone HCl (Dilaudid) 0.4 mg Q5MP PRN IV MODERATE/SEVERE PAIN (PS 5-10); Start 05/23/18 at 00:00; Stop 05/23/18 at 01:45; Status DC Ketorolac Tromethamine (ToRADol) 15 mg Q6H IV Last administered on 05/23/18at 20:31; Start 05/23/18 at 11:00; Stop 05/24/18 at 08:41; Status DC Lactated Ringer's 1,000 ml @ 100 mls/hr Q10H IV ; Start 05/23/18 at 00:00; Stop 05/23/18 at 01:45; Status DC Metoclopramide HCl (REGLAN INJection) 10 mg Q6HP PRN IV NAUSEA OR VOMITING; Start 05/23/18 at 00:00; Stop 05/23/18 at 01:45; Status DC Metoclopramide HCl (REGLAN INJection) 10 mg Q6HP PRN IV NAUSEA OR VOMITING; Start 05/23/18 at 00:15 Metoprolol Tartrate (Lopressor) 5 mg STAT STAT IV Last administered on 05/23/18at 20:17; Start 05/23/18 at 20:14; Stop 05/23/18 at 20:15; Status DC Metoprolol Tartrate (Lopressor) 12.5 mg BID PO ; Start 05/24/18 at 21:00; Stop 05/24/18 at 21:00; Status DC Metoprolol Tartrate (Lopressor) 12.5 mg Q6H PO Last administered on 05/24/18at 16:37; Start 05/24/18 at 18:00; Stop 05/24/18 at 18:09; Status DC Metoprolol Tartrate (Lopressor) 25 mg NOW STAT PO Last administered on 05/23/18at 20:30; Start 05/23/18 at 20:23; Stop 05/23/18 at 20:26; Status DC Metoprolol Tartrate (Lopressor) 25 mg Q8H PO Last administered on 05/25/18at 02:01; Start 05/25/18 at 02:00 Metronidazole 500 mg/IV Miscellaneous Supplies 100 ml @ 100 mls/hr Q8H IV Last administered on 05/25/18at 00:48; Start 05/23/18 at 01:00 Morphine Sulfate (Morphine Sulfate Inj) 2 mg Q1HP PRN IV MODERATE PAIN (PS 5- 7); Start 05/23/18 at 11:00 Morphine Sulfate (Morphine Sulfate Inj) 2 mg Q2HP PRN IV MODERATE PAIN (PS 5-7) Last administered on 05/23/18at 09:01; Start 05/23/18 at 00:15; Stop 05/23/18 at 10:47; Status DC Morphine Sulfate (Morphine Sulfate Inj) 2 mg Q30M PRN IV MODERATE PAIN (PS 5-7) Last administered on 05/22/18at 20:44; Start 05/22/18 at 19:30; Stop 05/22/18 at 20:44; Status DC Morphine Sulfate (Morphine Sulfate Inj) 4 mg Q2HP PRN IV SEVERE PAIN (PS 8-10) Last administered on 05/24/18at 02:59; Start 05/23/18 at 00:15 Ondansetron HCl (ZOFRAN INJection) 4 mg Q4HP PRN IV NAUSEA OR VOMITING; Start 05/23/18 at 00:00; Stop 05/23/18 at 01:45; Status DC Ondansetron HCl (ZOFRAN INJection) 4 mg Q6HP PRN IV NAUSEA OR VOMITING; Start 05/23/18 at 00:15 Oxycodone/ Acetaminophen (Percocet 5mg/ 325mg Tablet) 1 tab ASDIRECTED PRN PO MILD/MODERATE PAIN (PS 1-7); Start 05/23/18 at 00:00; Stop 05/23/18 at 01:45; Status DC Pantoprazole Sodium (Protonix) 40 mg DAILY IV Last administered on 05/24/18at 08:57; Start 05/23/18 at 09:00 Pneumococcal Polyvalent Vaccine (Prevnar 13) 0.5 ml ASDIRECTED IM ; Start at 06:30 Potassium Chloride 10 meq/ IV Miscellaneous Supplies 100 ml @ 100 mls/hr Q1H IV ; Start 05/22/18 at 22:45; Stop 05/23/18 at 02:44; Status Cancel Potassium Chloride 100 ml @ 100 mls/hr 0000,0100,2200,2300 IV ; Start 05/22/18 at 22:00; Stop 05/23/18 at 03:00; Status Cancel Potassium Chloride 100 ml @ 100 mls/hr Q1H IV Last administered on 05/23/18at 01:45; Start 05/22/18 at 22:45; Stop 05/23/18 at 02:44; Status DC Promethazine HCl (PHENERGAN INJection) 12.5 mg Q6HP PRN IV NAUSEA; Start 05/23/18 at 00:15 Simethicone (Mylicon) 120 mg QID PO Last administered on 05/24/18at 20:38; Start 05/23/18 at 09:00 Sodium Chloride 1,000 ml @ 75 mls/hr [id number] IV Last administered on 05/25/18at 00:08; Start 05/23/18 at 00:01 Allergies Coded Allergies: No Known Drug Allergies (Verified Allergy, Unknown, 05/22/18) Objective Physical Examination Examination GENERAL APPEARANCE: Patient awake, looks comfortable now acute distress. SKIN: Warm and dry. HEENT: Normocephalic, atraumatic. [place] palpebral conjunctiva, anicteric sclerae. Lips and mucosa appear mildly dry. NECK: Supple, no thyromegaly. No obvious jugular venous distention. LUNGS: Clear to auscultation bilaterally. No wheezing appreciated. Decreased inspiratory effort and it sounds most pronounced on the left lower chest area, no rales, no wheezing HEART: No chest wall abnormalities. Regular rate and rhythm with no murmurs appreciated. ABDOMEN: Abdomen is round, soft, still moderately distended, tympanitic to percussion. Midline incision is covered with dry gauze dressing. She has a Rudolph gastroduodenostomy tube with epigastric port attached to a Schmitz bag and gravity drainage with minimal bilious drainage, feeding port not being used. She has a right-sided JOSIE drain is light pink serosanguineous fluid. EXTREMITIES: 2+ lower extremity edema. Vital Signs Vital Signs Date Time Temp Pulse Resp B/P (MAP) Pulse Ox O2 Delivery O2 Flow Rate FiO2 05/25/18 08:00 97.4 93 18 102/58 (73) 99 2.0 05/24/18 19:31 Nasal Cannula 05/23/18 05:00 100 I&Os I&O- Last 24 Hours up to 6 AM 05/25/18 06:00 Intake Total 3605 ml Output Total 1645 ml Balance 1960 ml Laboratory Data Labs 24H Laboratory Tests 2 05/24/18 13:03: Lactic Acid Level 1.5 05/24/18 19:10: Anion Gap 8, Glomerular Filtration Rate > 60.0, Blood Urea Nitrogen 26H, Creatinine 0.79, Sodium Level 140, Potassium Level 3.6, Chloride Level 113H, Carbon Dioxide Level 19L, Calcium Level 7.8L, Troponin I 0.08 05/24/18 23:23: Troponin I 0.08, Total Creatine Kinase 445#H, Creatine Kinase MB 19.0H, Creatine Kinase MB Relative Index 4.31H 05/25/18 05:12: Anion Gap 8, Glomerular Filtration Rate > 60.0, Blood Urea Nitrogen 28H, Creatinine 0.83, Sodium Level 142, Potassium Level 3.6, Chloride Level 116H, Carbon Dioxide Level 18L, Calcium Level 7.7L, Nucleated Red Blood Cells % (auto) 0.0, Aspartate Amino Transf (AST/SGOT) 65H, Alanine Aminotransferase (ALT/SGPT) 36, Alkaline Phosphatase 57, Total Bilirubin 0.4, Total Protein 5.1L, Albumin 1.9L, Albumin/Globulin Ratio 0.59L CBC/BMP Laboratory Tests 05/24/18 19:10 Calcium Level 7.8 L 05/25/18 05:12 Calcium Level 7.7 L, Red Blood Count 3.82 L, Mean Corpuscular Volume 97.6 H, Mean Corpuscular Hemoglobin 31.7, Mean Corpuscular Hemoglobin Concent 32.4, Red Cell Distribution Width 14.2, Aspartate Amino Transf (AST/SGOT) 65 H, Alanine Aminotransferase (ALT/SGPT) 36, Alkaline Phosphatase 57, Total Bilirubin 0.4, Total Protein 5.1 L, Albumin 1.9 L Microbiology Microbiology 05/25/18 Blood Culture, Received Pending 05/22/18 Blood Culture - Final, Complete Staphylococcus Warneri 05/22/18 Blood Culture - Preliminary, Resulted No Growth after 48 hours. All Specime... Impression POD Right colectomy for infarcted right colon Paroxysmal atrial fibrillation Overall patient remained stable. Not much signs of systemic inflammatory response lingering on her. Her hemoglobin and hematocrit has been stable. Respiratory labs were reviewed. I'm changing the IV fluids to D5 1 half and is containing KCL. I'll observe him next couple days if she is ready to try some trickle feedings. Continue on antibiotics which she is on DVT prophylaxis. Medical workup pending for her atrial fibrillation currently she is on sinus rhythm. I will get physical therapy to start working with her. Plan / VTE VTE Prophylaxis Ordered?: Yes Plan / Urinary Catheter Reason for insertion/continuin: Critical Pt monitoring SARA REYES MD May 25, 2018 09:07
[2018-05-25] MEDS: ENOXAPARIN 30 MG/0.3 ML SYR (J1650) SC SCH (12:35)
--- NOTE | 2018-05-25 15:42 | IPN ---
DATE: 05/25/2018 SUBJECTIVE: The patient tells me that she is feeling better. She feels a little bit tired but otherwise has no specific complaints. She tells me that her breathing is improving. She denies fevers, chills, chest pain, shortness of breath. OBJECTIVE: Vital signs: Temperature 97.1, pulse 98, respiratory rate 19, blood pressure (BP) 119/57, oxygen saturation 92% on 1 liters. GENERAL: She is a pleasant, elderly female sitting up in bed. She does appear to be in any acute distress. HEENT: Moist mucous membranes. No appreciable elevation in central venous pressure (CVP). CARDIOVASCULAR: S1, S2, irregularly irregular. She is tachycardic at the time of my exam. RESPIRATORY: Diminished breath sounds at the bases. ABDOMEN: Decreased bowel sounds. Dressings clean, dry, and intact. She has an abdominal drain draining green bilious fluid as well as a Schmitz catheter in place draining clear urine. EXTREMITIES: No clubbing, cyanosis, or edema. LABORATORY STUDIES: Today, WBC 11.6, hemoglobin 12.1, platelet count 115. Chemistry panel: Sodium 142, potassium 3.6, chloride 116, bicarbonate 18, BUN 28, creatinine 0.8. TSH within normal limits. Blood culture, one of two bottles, was positive for Staphylococcus warneri. ASSESSMENT AND PLAN: This is an 82-year-old female who initially presented with ischemic colitis whose hospital course was complicated by atrial fibrillation. 1. Atrial fibrillation with rapid ventricular response. Patient was in the intensive care unit (ICU) on a diltiazem drip. At this time her rate is still not adequate controlled. She is on digoxin 0.125 mg daily as well as metoprolol tartrate 25 mg every 8 hours with holding parameters. Will check a digoxin level on her tomorrow morning and adjust her dosing as needed. I did reach out to Dr. Dale of cardiology yesterday. The patient's atrial fibrillation does not appear to be controlled at this time. She has an elevated [id number] score. More potential anticoagulation initiation at the time of discharge. The patient has had an echocardiogram ordered. 2. Hypertension. Continue with digoxin and metoprolol. Blood pressure is adequately controlled at this time. 3. Ischemic colitis. Management as per general surgery. 4. Leukocytosis, likely reactive related to surgery. 5. Hyperchloremic acidosis. Patient has been switched to half-normal saline. 6. Elevated CK, mild, secondary to surgery. 7. Abnormal blood culture, likely contaminant, one out of two bottles. A repeat has been ordered. Will continue following with you. Please call with any specific questions.
[2018-05-26] MEDS: metroNIDAZOLE 500 MG in APPROPRIATE DILUENT 1 EA IV SCH ×3 (00:21→17:47)
[2018-05-26] MEDS: KCL 20MEQ IN D5/0.45NS 1000ML 1,000 ML IV SCH ×2 (00:21→15:11)
--- NOTE | 2018-05-26 00:33 | CR ---
DATE OF CONSULTATION: 05/25/2018 REFERRING PROVIDER: Dr. Darcy Bradshaw REASON FOR THE CONSULT: Atrial fibrillation. HISTORY OF THE PRESENT ILLNESS: An 82-year-old woman with a history of hypertension and hyperlipidemia, has been doing well. For about 2-3 days prior to coming to the hospital, she was having diarrhea on and off, which was resolving. She, however, developed sudden abdominal pain about 6-8 hours prior to coming to the hospital and it then was so severe she decided to come to the emergency room for further evaluation. She was found to have findings consistent with acute abdomen, consistent with possible ischemic bowel. She underwent urgent surgery on the day of the admission. She was found to have a gangrenous right colon with underlying ischemia. She had a right colectomy and gastrostomy tube placement. Postsurgery, she developed atrial fibrillation with a rapid ventricular response, and she was managed with beta marcia and digoxin, as well as intravenous (IV) Cardizem. She briefly spontaneously converted to a normal sinus rhythm but continued to have intermittent atrial fibrillation with a rapid ventricular rate and cardiology consult was called yesterday in the evening. When I saw Mrs. Olivia Henning this morning, she was lying supine in bed in no acute distress at rest and complaining that she is not moving yet her bowels and passing gas. She denies any chest pain, and there was no shortness of breath, orthopnea. She denies any palpitations. Prior to coming to the hospital, she was not having any chest pain or palpitations, or shortness of breath. She was not having any pedal edema. She has no cough or hemoptysis or fever. She has no focal manifestation. She denies any headache or dizziness. MEDICATIONS PRIOR TO COMING TO THE HOSPITAL: Atorvastatin, lisinopril, hydrochlorothiazide (HCTZ), and PreserVision. CURRENT MEDICATIONS: Digoxin 0.125 mg by mouth daily, Lovenox 30 mg by mouth daily, metoprolol tartrate 25 mg by mouth every 8 hours, morphine sulfate 2 mg IV every 1 hour as needed for moderate pain, pantoprazole 40 mg IV daily, Entereg 12 mg by mouth twice a day, simethicone 120 mg by mouth four times a day, ciprofloxacin 400 mg IV every 12 hours, DuoNeb one nebulizer as needed every 6 hours, metronidazole 500 mg IV every 8 hours, ondansetron 4 mg IV every 6 hours for nausea or vomiting, metoclopramide 10 mg IV every 6 hours as needed for nausea or vomiting, promethazine 12.5 mg every 6 hours as needed for nausea, morphine sulfate 4 mg IV every 2 hours as needed for severe pain, DuoNeb one nebulizer every 2 hours as needed. PAST SURGICAL HISTORY: Unremarkable. FAMILY HISTORY: Noncontributory. SOCIAL HISTORY: Patient denies any smoking, ethyl alcohol (EtOH) abuse or illicit drugs. ALLERGIES: She has no known drug allergies. On physical examination, the patient is alert and oriented, in no acute distress at rest and her vital signs this morning when I saw her revealed a blood pressure of 102/58 with a pulse of 90, respirations 18, and her maximum temperature was 97.4 degrees Fahrenheit with an oxygen saturation of 99% on two liters nasal cannula. The vital signs this evening revealed a blood pressure of 140/82 with a pulse that varied between 90 and 100, respirations 18, and her maximum temperature is 98 degrees Fahrenheit with an oxygen saturation of 93% on one liters nasal cannula. She had a positive fluid balance of 2.2 liters and 1.8 liters respectively for 05/23/2018 and 05/24/2018. Examination of the head: Atraumatic. Neck is supple. No jugular venous distention (JVD) appreciated. The lungs did not reveal any wheezing or crackles. The heart examination revealed irregular heart sounds without gallops. The point of maximum impulse (PMI) is not displaced. There is no rub. Abdominal examination was not done. Extremities revealed trace ankle edema. No cyanosis or clubbing. Peripheral pulses, dorsalis pedis were palpated and equal. Neurologic examination grossly is negative for focal deficit. LABORATORY: CBC done today revealed a WBC of 11.6, hemoglobin 12.1, hematocrit 37.3, and platelets 115,000. BMP revealed a sodium of 142, potassium 3.6, chloride 116, CO2 18, BUN 28, creatinine 0.83, GFR more than 60, and fasting glucose 82, calcium 7.7. Liver enzymes revealed a total bilirubin of 0.4, AST 65, ALT 36, alkaline phosphatase 57, total protein 5.1, and albumin 1.9. Serum troponin is 0.08 and 0.08 and the first one was 0.02. Serum lactic acid on admission was 2.7, then increased up to 4.7, and yesterday it was 1.5. Serum TSH was 2.27. PT on admission was 14.5 with an INR of 1.11 and a PTT of 26.8. Abdomen and pelvis CT on admission, 05/22/2018, revealed findings consistent with bowel infarction. Chest x-ray on 05/23/2018 revealed blunting of the left costophrenic angle. Electrocardiogram on admission, 05/22/2018, revealed a wide complex tachycardia at 141 beats per minute that could be atrial flutter versus sinus tachycardia, left bundle branch block and nonspecific ST-T abnormalities. Left axis deviation also noted. The left bundle branch block is not new when compared to EKG on 03/08/2010. Repeat electrocardiogram done on 05/23/2018 at 20:04:48 did not reveal any significant changes. Heart rate was 46 beats per minute. A third EKG done on 05/23/2018 at 20:44:14 did not reveal any significant changes but slower heart rate. Telemetry strips were reviewed and revealed a wide complex tachycardia that could be sinus tachycardia versus atrial flutter. IMPRESSION: 1. Possible atrial flutter, paroxysmal in nature in this 82-year-old woman with a history of hypertension and hyperlipidemia, post abdominal surgery for ischemic colitis. Patient at the present time is in sinus rhythm according to her telemetry. On digoxin and beta marcia, metoprolol tartrate. As her blood pressure is getting under better control, I will increase her beta marcia and try to taper off the digoxin. She would benefit from anticoagulation therapy and once cleared by the surgeon, she may be started on one of the novel oral anticoagulants (NOACs). She had an echocardiogram done today, it will be reviewed. Currently on subcu heparin with Lovenox. 2. Hypertension and seems to be under control. If her blood pressure remains stable, I would increase her metoprolol tartrate, we may hold for now on the angiotensin-converting enzyme (PIERCE) inhibitor. 3. Hyperlipidemia and her statin can be restarted if no contraindications. 4. Abnormal EKG with left bundle branch block, old. Will review her echocardiogram. It was a pleasure to participate in the care of Mrs. Dea Henning for her underlying cardiac condition. I will continue to monitor along with you while in the hospital and upon discharge as needed. At the present time, she appears to be stable. Dr. Fleming will be covering over the weekend. Please do not hesitate to call if any questions. JENNIFER
[2018-05-26] MEDS: METOPROLOL TART 25 MG TABLET PO SCH ×3 (01:32→17:35)
[2018-05-26] MEDS: CIPROFLOXACIN 400 MG in APPROPRIATE DILUENT 1 EA IV SCH ×2 (01:32→15:11)
[2018-05-26 01:35] VITALS: BP 138/64
[2018-05-26 04:00] VITALS: BP 128/80
[2018-05-26 04:48] LABS: HEMATOCRIT 37.1 % (36.0-47.0); HEMOGLOBIN 12.3 g/dl (12.0-15.5); MEAN CORPUSCULAR HEMOGLOBIN 31.6 pg (27.0-33.0); MEAN CORPUSCULAR HGB CONC 33.2 g/dl (32.0-36.5); MEAN CORPUSCULAR VOLUME 95.4 fl (80.0-96.0); PLATELET COUNT, AUTOMATED 129 10^3/uL (150-450); RED BLOOD COUNT 3.89 10^6/uL (4.00-5.40); WHITE BLOOD COUNT 13.3 10^3/uL (4.0-10.0)
[2018-05-26 05:23] LABS: ALT/SGPT 33 U/L (12-78); BILIRUBIN,TOTAL 0.5 MG/DL (0.2-1.0); BLOOD UREA NITROGEN 21 MG/DL (7-18); CALCIUM LEVEL 7.8 MG/DL (8.8-10.2); CARBON DIOXIDE LEVEL 19 MEQ/L (21-32); CHLORIDE LEVEL 114 MEQ/L (98-107); CREATININE FOR GFR 0.71 MG/DL (0.55-1.30); DIGOXIN LEVEL 0.8 NG/ML (0.5-2.0); GLOMERULAR FILTRATION RATE > 60.0 (>32); GLUCOSE, FASTING 136 MG/DL (70-100); POTASSIUM SERUM 3.6 MEQ/L (3.5-5.1); SODIUM LEVEL 141 MEQ/L (136-145); TOTAL PROTEIN 5.3 GM/DL (6.4-8.2)
[2018-05-26] MEDS: IPRATROPIUM 0.5MG/ALBUTEROL 2.5MG INH SOL UD 3ML (DUONEB)(J7620) NEB SCH ×3 (07:17→20:14)
[2018-05-26 08:00] VITALS: BP 139/70
[2018-05-26] MEDS: ALVIMOPAN 12 MG CAPSULE (ENTEREG) PO SCH ×2 (08:35→20:50)
[2018-05-26] MEDS: SIMETHICONE 80 MG CHEW TAB PO SCH ×4 (08:35→20:50)
[2018-05-26] MEDS: DIGOXIN 0.125 MG TAB PO SCH (08:35)
[2018-05-26] MEDS: PANTOPRAZOLE 40MG INJ (PROTONIX) (C9113) IV SCH (08:35)
[2018-05-26] MEDS: ENOXAPARIN 30 MG/0.3 ML SYR (J1650) SC SCH (08:36)
--- NOTE | 2018-05-26 09:49 | IPN ---
DATE: 05/26/2018 Mrs. Henning was quite tachypneic when I entered the room. Her respiratory rate was approximately 25 per minute, but yet she denied any dyspnea. Talking to the nurse taking care of the patient, she was actually more tachypneic earlier today and was given a small amount of oxygen by nasal cannula, just 1 liter, and was set up slightly and it seemed to have helped. The patient denies any sensation of palpitations. She denies any chest pain or abdominal pain. She denies nausea. Vital signs: Blood pressure is 139/70, heart rate currently around 130, which is new. Throughout the night her heart rate was approximately 100 beats per minute consistently. The temperature was documented 99.6 degrees and saturation is in low 90s. Her fluid balance yesterday was about 800 mL negative. She received only 700 mL of intake and put out 1500 mL of urine. The weight by bed scale is recorded at 87.1 kg. It certainly does not correspond with weight 70 kg 3 days ago. Looking over last few days her fluid balance was documented as 1800 positive on and then about 800 negative yesterday, so consequently the overall balance is only slightly positive. She is alert, oriented and appropriate. Her tongue and oral mucosa is dry. Her jugular venous pressure does not look high. Lungs reveal only very fair air movement. I appreciate diminished breath sounds over bases, mostly on the right side, but also to some degree on the left. No wheezes, no crackles. Heart exam: Somewhat muffled heart sounds with paradoxically splitting second heart sound. No gallop, rub or murmur is appreciated. Abdomen is soft. Bowel sounds are barely noticeable. No obvious guarding. Extremities are free of edema. Neurologically she is intact. LABORATORY Sodium 141, potassium 3.6, BUN 21, creatinine 0.7 and glucose 136, normal liver function tests and albumin is 2.0 and CBC, hemoglobin 12.3, hematocrit 37, platelet count 129,000 and WBC count 13.3. Digoxin level was drawn this morning and was only 0.8 ASSESSMENT/PLAN Mrs. Henning is an 82-year-old female who has chronic left bundle branch block and came with ischemic bowel. She underwent right hemicolectomy with immediate anastomosis placement. She tolerated the initial procedure well, but then developed atrial fibrillation with rapid ventricular response. So far she has been receiving metoprolol and digoxin for rate control. The digoxin level is relatively low and she received only 0.75 mg total so far. The metoprolol currently is ordered as 25 mg p.o. every 8 hours. There does not appear to be any problem with nausea and vomiting so I am assuming that the absorption has been adequate. She is tachycardiac as we speak but she just received both digoxin and metoprolol, so hopefully we will see the effect. Provided there will not be any improvement within next couple hours, will have to probably give her additional doses of beta blockers. Her echocardiogram was performed yesterday but the report is not available as yet. I will review the findings. I do not believe that she has congestive heart failure as we speak. I will continue monitoring her with you. At some point she needs to be started on anticoagulation. I will wait until surgery gives us clearance, but from my perspective, I would prefer that it is sooner rather than later.
--- NOTE | 2018-05-26 11:03 | IPNPDOC ---
Date Seen The patient was seen on 05/26/18. Progress Note SUBJECTIVE: Patient reports no new complaints today she tells me that she is feeling quite well OBJECTIVE: Vital signs: Please see below GENERAL: She is a pleasant, elderly female sitting up in bed. She does not appear to be in any acute distress. HEENT: Moist mucous membranes. No appreciable elevation in central venous pressure (CVP). CARDIOVASCULAR: S1, S2, regular. She is tachycardic at the time of my exam. No additional heart sounds appreciated RESPIRATORY: Diminished breath sounds at the bases. ABDOMEN: Decreased bowel sounds. Dressings clean, dry, and intact. She has an abdominal drain draining green bilious fluid as well as a Schmitz catheter in ashwin ce draining clear urine. EXTREMITIES: No clubbing, cyanosis, or edema. LABORATORY STUDIES: Please see below Blood culture, one of two bottles, was positive for Staphylococcus warneri. ASSESSMENT AND PLAN: This is an 82-year-old female who initially presented with ischemic colitis whose hospital course was complicated by atrial fibrillation. 1. Atrial fibrillation with rapid ventricular response. Appears to be in a sinus tachycardic rhythm at this time. We'll continue with digoxin and metoprolol cardiology was greatly appreciated will follow up echocardiogram. Agree with waiting for Gen. surgery approval prior to initiating anticoagulation therapy 2. Hypertension. Continue with digoxin and metoprolol. Blood pressure is adequately controlled at this time. 3. Ischemic colitis. Management as per general surgery. 4. Leukocytosis: likely reactive related to surgery. She is continued on antibiotics continue to monitor 5. Hyperchloremic acidosis. Patient has been switched to half-normal saline does appear to be improving at this time 6. Elevated CK, mild, secondary to surgery. 7. Abnormal blood culture, likely contaminant, one out of two bottles. A repeat has been ordered. Will continue following with you. Please call with any specific questions. VS, I&O, 24H, Fishbone Vital Signs/I&O Vital Signs Date Time Temp Pulse Resp B/P (MAP) Pulse Ox O2 Delivery O2 Flow Rate FiO2 05/26/18 08:35 107 05/26/18 08:00 99.6 20 139/70 (93) 91 05/26/18 04:00 1.0 05/24/18 19:31 Nasal Cannula 05/23/18 05:00 100 I&O- Last 24 Hours up to 6 AM 05/26/18 06:00 Intake Total 1525 ml Output Total 1330 ml Balance 195 ml Laboratory Data 24H LABS Laboratory Tests 2 05/26/18 04:34: Nucleated Red Blood Cells % (auto) 0.0, Anion Gap 8, Glomerular Filtration Rate > 60.0, Blood Urea Nitrogen 21H, Creatinine 0.71, Sodium Level 141, Potassium Level 3.6, Chloride Level 114H, Carbon Dioxide Level 19L, Calcium Level 7.8L, Aspartate Amino Transf (AST/SGOT) 52H, Alanine Aminotransferase (ALT/SGPT) 33, Alkaline Phosphatase 63, Total Bilirubin 0.5, Total Protein 5.3L, Albumin 2.0L, Albumin/Globulin Ratio 0.61L, Digoxin Level 0.8 CBC/BMP Laboratory Tests 05/26/18 04:34 Red Blood Count 3.89 L, Mean Corpuscular Volume 95.4, Mean Corpuscular Hemoglobin 31.6, Mean Corpuscular Hemoglobin Concent 33.2, Red Cell Distribution Width 14.3, Calcium Level 7.8 L, Aspartate Amino Transf (AST/SGOT) 52 H, Alanine Aminotransferase (ALT/SGPT) 33, Alkaline Phosphatase 63, Total Bilirubin 0.5, Total Protein 5.3 L, Albumin 2.0 L Microbiology Microbiology 05/25/18 Blood Culture - Preliminary, Resulted No growth after 24 hours . All specim... 05/22/18 Blood Culture - Final, Complete Staphylococcus Warneri 05/22/18 Blood Culture - Preliminary, Resulted No Growth after 72 hours. All specime... KERRI IBRAHIM MD May 26, 2018 10:33
--- NOTE | 2018-05-26 11:38 | REP ---
Clinical: Tachypnea Comparison: 05/23/2018. Findings: Moderate bilateral pleural effusions and bibasilar atelectasis (right greater than left) have increased from prior examination. Findings may reflect CHF and require correlation. Visualized mediastinum and cardiac silhouette are stable. No pneumothorax. Skeletal structures intact. Impression: Moderate pleural effusions and bibasilar atelectasis (right greater than left) increased from prior examination. Differential diagnosis includes pulmonary vascular congestion/CHF. Electronically Signed by Shiva Herndon MD 05/26/2018 11:30 A
[2018-05-26 12:00] VITALS: BP 162/85
[2018-05-26] MEDS ORDERED: FUROSEMIDE 40 MG/4 ML VIAL (J1940) IV ONE (12:30)
[2018-05-26] MEDS: KCL 10MEQ/100ML SWI (KRUN) 10 MEQ in APPROPRIATE DILUENT 1 EA IV SCH ×2 (12:36→13:44)
[2018-05-26 16:00] VITALS: BP 163/81
--- NOTE | 2018-05-26 17:08 | IPNPDOC ---
Subjective General Date/Time Seen The patient was seen on 05/26/18 at 11:09. Subject Chief Complaint/History Patient was seen this morning. She reports she is feeling hungry. She seems to be spending some effort with breathing, though she denies feeling dyspneic. She is reporting some mild upper abdominal discomfort. Still no bowel movements. She denies nausea. She denies chest pain. Current Medications Current Medications Current Medications Albuterol/ Ipratropium (Duoneb (Ipr 0.5mg/Alb 2.5mg)) 3 ml Q2HP PRN NEB SOB/WHEEZING; Start 05/23/18 at 00:15 Albuterol/ Ipratropium (Duoneb (Ipr 0.5mg/Alb 2.5mg)) 3 ml RQ6H NEB Last administered on 05/26/18at 07:17; Start 05/23/18 at 02:00 Alvimopan (Entereg) 12 mg BID PO Last administered on 05/26/18at 08:35; Start 05/23/18 at 09:00; Stop 05/30/18 at 08:59 Ciprofloxacin 400 mg/IV Miscellaneous Supplies 200 ml @ 200 mls/hr Q12H IV Last administered on 05/26/18at 01:32; Start 05/23/18 at 02:00 Digoxin (Lanoxin) 0.125 mg DAILY PO Last administered on 05/26/18at 08:35; Start 05/25/18 at 09:00 Diltiazem HCl 125 mg/Sodium Chloride 125 ml @ 5 mls/hr Q24H IV Last administered on 05/23/18at 21:53; Start 05/23/18 at 21:30; Stop 05/24/18 at 11:07; Status DC Diltiazem HCl 125 mg/Sodium Chloride 125 ml @ 5 mls/hr Q24H STAT IV ; Start 05/23/18 at 21:01; Stop 05/24/18 at 21:00; Status Cancel Enoxaparin Sodium (Lovenox) 30 mg DAILY SC Last administered on 05/26/18at 08:36; Start 05/25/18 at 09:00 Fentanyl Citrate (Sublimaze) 25 mcg Q5MP PRN IV MODERATE PAIN (PS 4-7); Start 05/23/18 at 00:00; Stop 05/23/18 at 01:45; Status DC Home Med (Med Rec Complete!) ASDIRECTED XX ; Start 05/22/18 at 21:15; Stop 05/22/18 at 21:15; Status DC Hydromorphone HCl (Dilaudid) 0.4 mg Q5MP PRN IV MODERATE/SEVERE PAIN (PS 5-10); Start 05/23/18 at 00:00; Stop 05/23/18 at 01:45; Status DC Ketorolac Tromethamine (ToRADol) 15 mg Q6H IV Last administered on 05/23/18at 20:31; Start 05/23/18 at 11:00; Stop 05/24/18 at 08:41; Status DC Lactated Ringer's 1,000 ml @ 100 mls/hr Q10H IV ; Start 05/23/18 at 00:00; Stop 05/23/18 at 01:45; Status DC Metoclopramide HCl (REGLAN INJection) 10 mg Q6HP PRN IV NAUSEA OR VOMITING; Start 05/23/18 at 00:00; Stop 05/23/18 at 01:45; Status DC Metoclopramide HCl (REGLAN INJection) 10 mg Q6HP PRN IV NAUSEA OR VOMITING; Start 05/23/18 at 00:15 Metoprolol Tartrate (Lopressor) 5 mg STAT STAT IV Last administered on 05/23/18at 20:17; Start 05/23/18 at 20:14; Stop 05/23/18 at 20:15; Status DC Metoprolol Tartrate (Lopressor) 12.5 mg BID PO ; Start 05/24/18 at 21:00; Stop 05/24/18 at 21:00; Status DC Metoprolol Tartrate (Lopressor) 12.5 mg Q6H PO Last administered on 05/24/18at 16:37; Start 05/24/18 at 18:00; Stop 05/24/18 at 18:09; Status DC Metoprolol Tartrate (Lopressor) 25 mg NOW STAT PO Last administered on 05/23at 20:30; Start 05/23/18 at 20:23; Stop 05/23/18 at 20:26; Status DC Metoprolol Tartrate (Lopressor) 25 mg Q8H PO Last administered on 05/26/18at 09:10; Start 05/25/18 at 02:00 Metronidazole 500 mg/IV Miscellaneous Supplies 100 ml @ 100 mls/hr Q8H IV Last administered on 05/26/18at 08:37; Start 05/23/18 at 01:00 Morphine Sulfate (Morphine Sulfate Inj) 2 mg Q1HP PRN IV MODERATE PAIN (PS 5- 7); Start 05/23/18 at 11:00 Morphine Sulfate (Morphine Sulfate Inj) 2 mg Q2HP PRN IV MODERATE PAIN (PS 5-7) Last administered on 05/23/18at 09:01; Start 05/23/18 at 00:15; Stop 05/23/18 at 10:47; Status DC Morphine Sulfate (Morphine Sulfate Inj) 2 mg Q30M PRN IV MODERATE PAIN (PS 5-7) Last administered on 05/22/18at 20:44; Start 05/22/18 at 19:30; Stop 05/22/18 at 20:44; Status DC Morphine Sulfate (Morphine Sulfate Inj) 4 mg Q2HP PRN IV SEVERE PAIN (PS 8-10) Last administered on 05/24/18at 02:59; Start 05/23/18 at 00:15 Ondansetron HCl (ZOFRAN INJection) 4 mg Q4HP PRN IV NAUSEA OR VOMITING; Start 05/23/18 at 00:00; Stop 05/23/18 at 01:45; Status DC Ondansetron HCl (ZOFRAN INJection) 4 mg Q6HP PRN IV NAUSEA OR VOMITING; Start 05/23/18 at 00:15 Oxycodone/ Acetaminophen (Percocet 5mg/ 325mg Tablet) 1 tab ASDIRECTED PRN PO MILD/MODERATE PAIN (PS 1-7); Start 05/23/18 at 00:00; Stop 05/23/18 at 01:45; Status DC Pantoprazole Sodium (Protonix) 40 mg DAILY IV Last administered on 05/26/18at 08:35; Start 05/23/18 at 09:00 Pneumococcal Polyvalent Vaccine (Prevnar 13) 0.5 ml ASDIRECTED IM ; Start 05/23/18 at 06:30 Potassium Chloride 10 meq/ IV Miscellaneous Supplies 100 ml @ 100 mls/hr Q1H IV ; Start 05/22/18 at 22:45; Stop 05/23/18 at 02:44; Status Cancel Potassium Chloride/Dextrose/ Sod Cl 1,000 ml @ 75 mls/hr [id number] IV Last administered on 05/26/18at 00:21; Start 05/25/18 at 11:00 Potassium Chloride 100 ml @ 100 mls/hr 0000,0100,2200,2300 IV ; Start 05/22/18 at 22:00; Stop 05/23/18 at 03:00; Status Cancel Potassium Chloride 100 ml @ 100 mls/hr Q1H IV Last administered on 05/23/18at 01:45; Start 05/22/18 at 22:45; Stop 05/23/18 at 02:44; Status DC Promethazine HCl (PHENERGAN INJection) 12.5 mg Q6HP PRN IV NAUSEA; Start 05/23/18 at 00:15 Simethicone (Mylicon) 120 mg QID PO Last administered on 05/26/18at 08:35; Start 05/23/18 at 09:00 Sodium Chloride 1,000 ml @ 75 mls/hr [id number] IV Last administered on 05/25/18at 00:08; Start 05/23/18 at 00:01; Stop 05/25/18 at 10:39; Status DC Allergies Coded Allergies: No Known Drug Allergies (Verified Allergy, Unknown, 05/22/18) Objective Physical Examination Examination GENERAL APPEARANCE: Patient was asleep when I came in, she is able to converse without difficulty so in between her talking I could see that she seems to be slightly short of breath.. SKIN: Warm and dry. HEENT: [Normocephalic, atraumatic. [place] palpebral conjunctiva, anicteric sclerae. Lips and mucosa appear dry]. NECK: [Supple, no thyromegaly. No obvious jugular venous distention]. LUNGS: Clear on the upper lung johnson but decreased on the middle to lower lung johnson most prominent on the right side. Shallow breathing. HEART: [No chest wall abnormalities. Regular rate and rhythm with no murmurs appreciated]. ABDOMEN: Abdomen is still distended but seems to be less distended than yesterday, soft, midline incision is intact without any drainage. Left upper quadrant gastroduodenostomy with a gastric or connected to a Schmitz bag with minimal amount of drainage in the bag. Right lower quadrant drain is started to get serous drainage in character mild tenderness on palpation around the incision sites and also on the right side of the abdomen. Tympanitic to percussion and relatively hypoactive bowel sounds still. EXTREMITIES: Mild lower extremity edema. Vital Signs Vital Signs Date Time Temp Pulse Resp B/P (MAP) Pulse Ox O2 Delivery O2 Flow Rate FiO2 05/26/18 08:35 107 05/26/18 08:00 99.6 20 139/70 (93) 91 05/26/18 04:00 1.0 05/24/18 19:31 Nasal Cannula 05/23/18 05:00 100 I&Os I&O- Last 24 Hours up to 6 AM 05/26/18 06:00 Intake Total 1525 ml Output Total 1330 ml Balance 195 ml Laboratory Data Labs 24H Laboratory Tests 2 05/26/18 04:34: Nucleated Red Blood Cells % (auto) 0.0, Anion Gap 8, Glomerular Filtration Rate > 60.0, Blood Urea Nitrogen 21H, Creatinine 0.71, Sodium Level 141, Potassium Level 3.6, Chloride Level 114H, Carbon Dioxide Level 19L, Calcium Level 7.8L, Aspartate Amino Transf (AST/SGOT) 52H, Alanine Aminotransferase (ALT/SGPT) 33, Alkaline Phosphatase 63, Total Bilirubin 0.5, Total Protein 5.3L, Albumin 2.0L, Albumin/Globulin Ratio 0.61L, Digoxin Level 0.8 CBC/BMP Laboratory Tests 05/26/18 04:34 Red Blood Count 3.89 L, Mean Corpuscular Volume 95.4, Mean Corpuscular Hemoglobin 31.6, Mean Corpuscular Hemoglobin Concent 33.2, Red Cell Distribution Width 14.3, Calcium Level 7.8 L, Aspartate Amino Transf (AST/SGOT) 52 H, Alanine Aminotransferase (ALT/SGPT) 33, Alkaline Phosphatase 63, Total Bilirubin 0.5, Total Protein 5.3 L, Albumin 2.0 L Microbiology Microbiology 05/25/18 Blood Culture - Preliminary, Resulted No growth after 24 hours . All specim... 05/22/18 Blood Culture - Final, Complete Staphylococcus Warneri 05/22/18 Blood Culture - Preliminary, Resulted No Growth after 72 hours. All specime... Impression POD4 right colectomy for ischemic colon slight labored breathing this am but maintaining sats will get pcxr, no rales on ausculation abdomen less distended will start on trickle feeds through the distal port of the Rudolph tube and observe for tolerance continue antibiotics dvt prophylaxis I reviewed her chest x-ray showing pleural effusion as well as some associated atelectasis and maybe suggestive of CHF. I we'll give her a dose of Lasix and see if breathing improves. Second consideration is whether she is becoming septic. We will have to closely watch this. She remains on IV antibiotics. Chest x-ray does not show any free air. Plan / VTE VTE Prophylaxis Ordered?: Yes Plan / Urinary Catheter Urinary Catheter: D/C Schmitz Reason for insertion/continuin: Critical Pt monitoring SARA REYES MD May 26, 2018 11:11
[2018-05-26] MEDS ORDERED: METOPROLOL TART 25 MG TABLET PO ONE (17:30)
[2018-05-26] MEDS: ACETAMINOPHEN TAB 650MG DOSE (2X325MG) PO PRN (17:33)
[2018-05-26] MEDS ORDERED: AMIODARONE HCL 150 MG in APPROPRIATE DILUENT 1 EA IV STA ×2 (18:14→18:27)
[2018-05-26 20:00] VITALS: BP 137/86
[2018-05-27] VITALS (7 sets, daily range): BP systolic 108–150; BP diastolic 60–95
[2018-05-27] MEDS: IPRATROPIUM 0.5MG/ALBUTEROL 2.5MG INH SOL UD 3ML (DUONEB)(J7620) NEB SCH ×4 (00:14→19:29)
[2018-05-27] MEDS: METOPROLOL TART 25 MG TABLET PO SCH ×2 (01:16→09:15)
[2018-05-27] MEDS: metroNIDAZOLE 500 MG in APPROPRIATE DILUENT 1 EA IV SCH ×3 (01:17→16:23)
[2018-05-27] MEDS: CIPROFLOXACIN 400 MG in APPROPRIATE DILUENT 1 EA IV SCH ×2 (02:40→13:25)
[2018-05-27 05:15] LABS: HEMATOCRIT 39.3 % (36.0-47.0); HEMOGLOBIN 12.9 g/dl (12.0-15.5); MEAN CORPUSCULAR HEMOGLOBIN 31.2 pg (27.0-33.0); MEAN CORPUSCULAR HGB CONC 32.8 g/dl (32.0-36.5); MEAN CORPUSCULAR VOLUME 95.2 fl (80.0-96.0); PLATELET COUNT, AUTOMATED 150 10^3/uL (150-450); RED BLOOD COUNT 4.13 10^6/uL (4.00-5.40); WHITE BLOOD COUNT 12.2 10^3/uL (4.0-10.0)
[2018-05-27 05:35] LABS: ALBUMIN 1.8 GM/DL (3.2-5.2); BILIRUBIN,TOTAL 0.5 MG/DL (0.2-1.0); CALCIUM LEVEL 7.6 MG/DL (8.8-10.2); CREATININE FOR GFR 1.09 MG/DL (0.55-1.30); GLOMERULAR FILTRATION RATE 51.2 (>32)
--- NOTE | 2018-05-27 06:29 | ECGEPIP ---
Stationary ECG Study [facility] Test Date: 2018-05-26 Pat Name: CHERRI BLOOD Department: Room: [place] [address] Gender: F Survey Crew Chief: IRMA : 1935 Requested By: Felicita Fleming Order Number: [id number] Reading MD: Linda Guillen Measurements Intervals [place] Rate: 103 P: 27 GA: 311 QRS: -24 QRSD: 141 T: 146 QT: 322 QTc: 423 Interpretive Statements SINUS RHYTHM WITH FIRST DEGREE AV BLOCK WITH FREQUENT SUPRAVENTRICULAR PREMATURE COMPLEXES IN A BIGEMINAL PATTERN LEFT BUNDLE BRANCH BLOCK PRIOR WITH REGULAR UNDEFINED SUPAVENTRICULAR TACHYCARDIA/LBBB 05/22/18 Electronically Signed On 05-27-2018 6:29:17 EDT by Linda Guillen
--- NOTE | 2018-05-27 06:36 | ECHO ---
DATE OF PROCEDURE: 05/25/2018 REFERRING PHYSICIAN: Dr. Bradshaw, INDICATION: Abnormal ECG. WEIGHT: 70 kg HEIGHT: 168 cm DIMENSIONS: IVS: 1.0 LV: 4.7 LVPW: 1.1 LA: Aorta: IVC: 1.6 Mitral E wave velocity: 130 E prime septal: 8.8 E prime lateral: 10 FINDINGS: The study is of very limited technical quality with poor visualization. The patient is in regular rhythm with ventricular rate 100 beats per minute. I suspect most likely atrial flutter. Left ventricle is normal size. I am unable to estimate left ventricle ejection fraction due to poor visualization, but gross estimate indicates near normal LV systolic function. There is septal wall motion abnormality likely due to underlying conductive system disease. Right ventricle was poorly visualized and I cannot comment on his systolic function. Left atrium is severely enlarged. Right atrium was poorly visualized but grossly appears normal. Aortic valve is sclerotic. Visualization was too limited to provide details of its anatomy. There are degenerative abnormalities of mitral valve with mitral annular calcifications. Tricuspid valve appears normal. Pulmonic valve was not well seen. No pericardial effusion is noted. Inferior vena cava was not visualized. Aortic root is normal. Aortic arch and abdominal aorta were not seen. Inferior vena cava is normal size. Doppler interrogation reveals no aortic insufficiency. There is minimal stenosis with mean gradient 6 mmHg. There is no hemodynamically significant mitral valvular disease. There is mild tricuspid insufficiency. Calculated pulmonary artery pressure is in low 40s corresponding to moderate pulmonary hypertension. Evaluation of diastolic function is inconclusive due to absence of sinus rhythm. CONCLUSIONS: 1. Study is of very limited technical quality. 2. Normal left ventricle (LV) size. Probably normal or near normal LV systolic function based on very limited visualization. Septal wall motion abnormality likely related to underlying conductive system disease. 3. Unable to comment on the right ventricular systolic function. 4. Left atrial enlargement. 5. Aortic sclerosis with trivial stenosis 6. Mild mitral insufficiency. 7. Probably normal central venous pressure. 8. At least moderate pulmonary hypertension. COMMENT: Subacute bacterial endocarditis (SBE) prophylaxis is not recommended. MTDD
[2018-05-27] MEDS ORDERED: SLF 3 ML SYR IV PRN (07:30)
[2018-05-27] MEDS: ENOXAPARIN 30 MG/0.3 ML SYR (J1650) SC SCH (09:14)
[2018-05-27] MEDS: SIMETHICONE 80 MG CHEW TAB PO SCH ×4 (09:14→20:11)
[2018-05-27] MEDS: PANTOPRAZOLE 40MG INJ (PROTONIX) (C9113) IV SCH (09:14)
[2018-05-27] MEDS: ALVIMOPAN 12 MG CAPSULE (ENTEREG) PO SCH ×2 (09:15→20:12)
[2018-05-27] MEDS: DIGOXIN 0.125 MG TAB PO SCH (09:15)
--- NOTE | 2018-05-27 11:22 | IPNPDOC ---
Subjective General Date/Time Seen The patient was seen on 05/27/18 at 11:16. Subject Chief Complaint/History Patient was having some tachypnea, dyspnea yesterday. This seems to have improved after a dose of Lasix. She feels much more comfortable this morning. Her breathing is not labored. She is tolerating some sips of clears and also on trickle feeding using the Rudolph gastroduodenostomy tube. There is no increase in drainage from the gastrostomy tube. She has had 2 small bowel movements recorded earlier this morning. Current Medications Current Medications Current Medications Acetaminophen (Tylenol Tab) 650 mg Q6HP PRN PO PAIN / FEVER Last administered on 05/26/18at 17:33; Start 05/26/18 at 17:15 Albuterol/ Ipratropium (Duoneb (Ipr 0.5mg/Alb 2.5mg)) 3 ml Q2HP PRN NEB SOB/WHEEZING; Start 05/23/18 at 00:15 Albuterol/ Ipratropium (Duoneb (Ipr 0.5mg/Alb 2.5mg)) 3 ml RQ6H NEB Last administered on 05/27/18at 07:15; Start 05/23/18 at 02:00 Alvimopan (Entereg) 12 mg BID PO Last administered on 05/27/18 09:15; Start 05/23/18 at 09:00; Stop 05/30/18 at 08:59 Amiodarone HCl 150 mg/IV Miscellaneous Supplies 100 ml @ 200 mls/hr STAT STAT IV Last administered on 05/26/18at 18:43; Start 05/26/18 at 18:27; Stop 05/26/18 at 18:56; Status DC Amiodarone HCl 150 mg/IV Miscellaneous Supplies 100 ml @ 600 mls/hr STAT STAT IV ; Start 05/26/18 at 18:14; Stop 05/26/18 at 18:23; Status Cancel Ciprofloxacin 400 mg/IV Miscellaneous Supplies 200 ml @ 200 mls/hr Q12H IV La st administered on 05/27/18at 02:40; Start 05/23/18 at 02:00 Digoxin (Lanoxin) 0.125 mg DAILY PO Last administered on 05/27/18at 09:15; Start 05/25/18 at 09:00 Diltiazem HCl 125 mg/Sodium Chloride 125 ml @ 5 mls/hr Q24H IV Last administered on 05/23/18at 21:53; Start 05/23/18 at 21:30; Stop 05/24/18 at 11:07; Status DC Diltiazem HCl 125 mg/Sodium Chloride 125 ml @ 5 mls/hr Q24H STAT IV ; Start 05/23/18 at 21:01; Stop 05/24/18 at 21:00; Status Cancel Enoxaparin Sodium (Lovenox) 30 mg DAILY SC Last administered on 05/27/18at 09:14; Start 05/25/18 at 09:00 Fentanyl Citrate (Sublimaze) 25 mcg Q5MP PRN IV MODERATE PAIN (PS 4-7); Start 05/23/18 at 00:00; Stop 05/23/18 at 01:45; Status DC Home Med (Med Rec Complete!) ASDIRECTED XX ; Start 05/22/18 at 21:15; Stop 05/22/18 at 21:15; Status DC Hydromorphone HCl (Dilaudid) 0.4 mg Q5MP PRN IV MODERATE/SEVERE PAIN (PS 5-10); Start 05/23/18 at 00:00; Stop 05/23/18 at 01:45; Status DC Ketorolac Tromethamine (ToRADol) 15 mg Q6H IV Last administered on 05/23/18at 20:31; Start 05/23/18 at 11:00; Stop 05/24/18 at 08:41; Status DC Lactated Ringer's 1,000 ml @ 100 mls/hr Q10H IV ; Start 05/23/18 at 00:00; Stop 05/23/18 at 01:45; Status DC Metoclopramide HCl (REGLAN INJection) 10 mg Q6HP PRN IV NAUSEA OR VOMITING; Start 05/23/18 at 00:00; Stop 05/23/18 at 01:45; Status DC Metoclopramide HCl (REGLAN INJection) 10 mg Q6HP PRN IV NAUSEA OR VOMITING; Start 05/23/18 at 00:15 Metoprolol Tartrate (Lopressor) 5 mg STAT STAT IV Last administered on 05/23/18at 20:17; Start 05/23/18 at 20:14; Stop 05/23/18 at 20:15; Status DC Metoprolol Tartrate (Lopressor) 12.5 mg BID PO ; Start 05/24/18 at 21:00; Stop 05/24/18 at 21:00; Status DC Metoprolol Tartrate (Lopressor) 12.5 mg Q6H PO Last administered on 05/24/18 16:37; Start 05/24/18 at 18:00; Stop 05/24/18 at 18:09; Status DC Metoprolol Tartrate (Lopressor) 25 mg NOW STAT PO Last administered on 05/23/18at 20:30; Start 05/23/18 at 20:23; Stop 05/23/18 at 20:26; Status DC Metoprolol Tartrate (Lopressor) 25 mg Q8H PO Last administered on 05/27/18 09:15; Start 05/25/18 at 02:00 Metronidazole 500 mg/IV Miscellaneous Supplies 100 ml @ 100 mls/hr Q8H IV Last administered on 05/27/18 09:14; Start 05/23/18 at 01:00 Morphine Sulfate (Morphine Sulfate Inj) 2 mg Q1HP PRN IV MODERATE PAIN (PS 5- 7); Start 05/23/18 at 11:00 Morphine Sulfate (Morphine Sulfate Inj) 2 mg Q2HP PRN IV MODERATE PAIN (PS 5-7) Last administered on 05/23/18at 09:01; Start 05/23/18 at 00:15; Stop 05/23/18 at 10:47; Status DC Morphine Sulfate (Morphine Sulfate Inj) 2 mg Q30M PRN IV MODERATE PAIN (PS 5-7) Last administered on 05/22/18 20:44; Start 05/22/18 at 19:30; Stop 05/22/18 at 20:44; Status DC Morphine Sulfate (Morphine Sulfate Inj) 4 mg Q2HP PRN IV SEVERE PAIN (PS 8-10) Last administered on 05/24/18 02:59; Start 05/23/18 at 00:15 Ondansetron HCl (ZOFRAN INJection) 4 mg Q4HP PRN IV NAUSEA OR VOMITING; Start 05/23/18 at 00:00; Stop 05/23/18 at 01:45; Status DC Ondansetron HCl (ZOFRAN INJection) 4 mg Q6HP PRN IV NAUSEA OR VOMITING; Start 05/23/18 at 00:15 Oxycodone/ Acetaminophen (Percocet 5mg/ 325mg Tablet) 1 tab ASDIRECTED PRN PO M ILD/MODERATE PAIN (PS 1-7); Start 05/23/18 at 00:00; Stop 05/23/18 at 01:45; Status DC Pantoprazole Sodium (Protonix) 40 mg DAILY IV Last administered on 05/27/18at 09:14; Start 05/23/18 at 09:00 Pneumococcal Polyvalent Vaccine (Prevnar 13) 0.5 ml ASDIRECTED IM ; Start 05/23/18 at 06:30 Potassium Chloride 10 meq/ IV Miscellaneous Supplies 100 ml @ 100 mls/hr Q1H IV ; Start 05/22/18 at 22:45; Stop 05/23/18 at 02:44; Status Cancel Potassium Chloride 10 meq/ IV Miscellaneous Supplies 100 ml @ 100 mls/hr Q1H IV Last administered on 05/26/18at 13:44; Start 05/26/18 at 12:00; Stop 05/26/18 at 13:59; Status DC Potassium Chloride/Dextrose/ Sod Cl 1,000 ml @ 75 mls/hr [id number] IV Last administered on 05/26/18at 15:11; Start 05/25/18 at 11:00; Stop 05/27/18 at 06:49; Status DC Potassium Chloride 100 ml @ 100 mls/hr 0000,0100,2200,2300 IV ; Start 05/22/18 at 22:00; Stop 05/23/18 at 03:00; Status Cancel Potassium Chloride 100 ml @ 100 mls/hr Q1H IV Last administered on 05/23/18at 01:45; Start 05/22/18 at 22:45; Stop 05/23/18 at 02:44; Status DC Promethazine HCl (PHENERGAN INJection) 12.5 mg Q6HP PRN IV NAUSEA; Start 05/23/18 at 00:15 Simethicone (Mylicon) 120 mg QID PO Last administered on 05/27/18at 09:14; Start 05/23/18 at 09:00 Sodium Chloride 1,000 ml @ 75 mls/hr [id number] IV Last administered on 05/25/18at 00:08; Start 05/23/18 at 00:01; Stop 05/25/18 at 10:39; Status DC Sodium Chloride (Saline Lock Flush) 2 ml ASDIRECTED PRN IV SEE LABEL COMMENTS; Start 05/27/18 at 07:30 Sodium Chloride (Saline Lock Flush) 2 ml SLF IV ; Start 05/27/18 at 14:00 Allergies Coded Allergies: No Known Drug Allergies (Verified Allergy, Unknown, 05/22/18) Objective Physical Examination Examination GENERAL APPEARANCE: Looks comfortable. SKIN: Warm and dry.]. NECK: Supple, no thyromegaly. No obvious jugular venous distention. LUNGS: Clear upper breath sounds, decreased bilateral lower lung johnson, no rales. No wheezing. HEART: Mildly tachycardic, regular rhythm ABDOMEN: Abdomen is round, soft, mildly distended, decreased distention as compared to yesterday. Tympanitic to percussion. She has a midline incision which is dry without any drainage. She has a right lower quadrant JOSIE drain putting out mostly serous fluid. She has a left upper quadrant Rudolph gastroduodenostomy tube. The gastrostomy port is attached to a Schmitz bag with small amount of bile stained drainage. . E her feeding port is being used at 10 mL an hour at this time. Seems to be tolerating this. EXTREMITIES: Mild lower extremity edema. Vital Signs Vital Signs Date Time Temp Pulse Resp B/P (MAP) Pulse Ox O2 Delivery O2 Flow Rate FiO2 05/27/18 09:15 107 140/73 05/27/18 08:00 0.5 05/27/18 07:45 98.3 19 94 05/27/18 00:14 Nasal Cannula 05/23/18 05:00 100 I&Os I&O- Last 24 Hours up to 6 AM 05/27/18 06:00 Intake Total 840 ml Output Total 2920 ml Balance -2080 ml Laboratory Data Labs 24H Laboratory Tests 2 05/26/18 15:35: 05/27/18 04:46: Nucleated Red Blood Cells % (auto) 0.0, Anion Gap 8, Glomerular Filtration Rate 51.2, Blood Urea Nitrogen 22H, Creatinine 1.09#, Sodium Level 139, Potassium Level 4.0, Chloride Level 111H, Carbon Dioxide Level 20L, Calcium Level 7.6L, Aspartate Amino Transf (AST/SGOT) 40H, Alanine Aminotransferase (ALT/SGPT) 28, Alkaline Phosphatase 90, Total Bilirubin 0.5, Total Protein 5.0L, Albumin 1.8L, Albumin/Globulin Ratio 0.56L CBC/BMP Laboratory Tests 05/27/18 04:46 Red Blood Count 4.13, Mean Corpuscular Volume 95.2, Mean Corpuscular Hemoglobin 31.2, Mean Corpuscular Hemoglobin Concent 32.8, Red Cell Distribution Width 14.3, Calcium Level 7.6 L, Aspartate Amino Transf (AST/SGOT) 40 H, Alanine Amino transferase (ALT/SGPT) 28, Alkaline Phosphatase 90, Total Bilirubin 0.5, Total Protein 5.0 L, Albumin 1.8 L Microbiology Microbiology 05/26/18 Blood Culture, Received Pending 05/26/18 Blood Culture, Received Pending 05/25/18 Blood Culture - Preliminary, Resulted No Growth after 48 hours. All Specime... 05/22/18 Blood Culture - Final, Complete Staphylococcus Warneri 05/22/18 Blood Culture - Preliminary, Resulted No Growth after 72 hours. All specime... Impression Postop day 5 after right colectomy for ischemic right colon. paroxysmal atrial fibrillation She looks improved and less dyspneic, tachypneic today. Her leukocytosis is slightly better. She seems to be tolerating the trickle feeding. I'll advance the feeding slightly to 20 miles an hour. Continue with antibiotics. Dr. Fleming spoke with me with regards to starting her on anticoagulation. At this time I think it is okay to start her on Lovenox for full anticoagulation but would hold off on long-acting anticoagulants as it is not clear yet whether she will need any further intervention. Plan / VTE VTE Prophylaxis Ordered?: Yes Plan / Urinary Catheter Urinary Catheter: D/C Schmitz Reason for insertion/continuin: Critical Pt monitoring SARA REYES MD May 27, 2018 11:22
--- NOTE | 2018-05-27 12:52 | IPN ---
DATE: 05/27/2018 Mrs. Henning is feeling better. She is not as short of breath but she is still uncomfortable. She denies any chest pain or sensation of palpitations. She is somewhat angry that we do not let her eat because she would like to. She is mildly confused. For example, she claimed to me that she had a bowel movement this morning but when I talked to nursing staff she did not. Vital signs: Blood pressure 140/73. Heart rate has been around 105. It is most likely atrial flutter or some form of atrial tachycardia. She is afebrile. Saturation 94% on half liter of oxygen. Her fluid balance yesterday was documented approximately equal. Weight is recorded as 89.6 kg. She is alert and oriented times three as far as the standard questions are concerned. Her jugular venous pulse (JVP) is not high. Lungs reveal reasonably good air movement. I do not appreciate any wheezing or crackles. Heart exam reveals at this point regular rhythm. There is faint murmur at the base. I do not appreciate any gallop. There is paradoxical split second heart sound. Abdomen is soft. Bowel sounds are rather slow but there are some, and extremities are free of edema. Neurologically, there is generalized weakness but otherwise intact. Laboratory tests: CBC revealed WBC count 12.2, hemoglobin 12.9, hematocrit 39, platelet count 150,000. Basic metabolic panel: Sodium 139, potassium 4.0, BUN 22, creatinine 1.1 for GFR 51 and glucose 171. Albumin is 1.8. Digoxin level yesterday was 0.8. ASSESSMENT AND PLAN: Mrs. Henning is an 82-year-old female, who came with necrotic bowel and underwent emergent hemicolectomy. Surprisingly, she was able to be extubated almost immediately and the anastomosis was done during the initial resection as well. In postoperative period, she developed atrial fibrillation that initially was paroxysmal but has been persistent. Yesterday, she was in atrial fibrillation (AFib) but this morning she is in probably atrial flutter with 2:1 conduction even though there are no distinct flutter waves on EKG because she has virtually constant heart rate it is most likely diagnosis though. I will continue her current management. As far as the arrhythmia is concerned, I am going to change the dose of beta-marcia from 25 every 8 to 50 twice a day and will give her probably one more days of digoxin. I am hoping to discontinue the medication tomorrow. At this point, I think will need to start anticoagulation. I spoke with Dr. Hodgson, who has no objections because there is still some possibility that she might need surgical reintervention. I will give her Lovenox, and because of her age I am going to reduce the dose slightly. I will give her 70 mg twice a day starting tonight. As far as the further management is concerned, I tentatively would plan discharge on anticoagulation and rate control with a tentative plan for outpatient cardioversion if she does not convert spontaneously. The second issue was shortness of breath. I think it was principally caused by congestive heart failure caused by tachycardia. An echocardiogram yesterday revealed grossly preserved left ventricular systolic function even though the quality of the study was poor. I do not intend to put her on diuretics at this point as her oral intake has been minimal. We will have to reevaluate this issue on daily basis.
[2018-05-27] MEDS: SLF 3 ML SYR IV SCH ×2 (13:27→20:12)
--- NOTE | 2018-05-27 15:21 | IPNPDOC ---
Date Seen The patient was seen on 05/27/18. Progress Note SUBJECTIVE: Patient reports no new complaints today she tells me that she is feeling better than she did yesterday afternoon OBJECTIVE: Vital signs: Please see below GENERAL: She is a pleasant, elderly female sitting up in bed. She does not appear to be in any acute distress.Comfortable HEENT: Moist mucous membranes. No appreciable elevation in central venous pressure (CVP). CARDIOVASCULAR: S1, S2, regular. She is mildly tachycardic at the time of my exam. No additional heart sounds appreciated RESPIRATORY: Diminished breath sounds at the bases. ABDOMEN: Decreased bowel sounds. Dressings clean, dry, and intact. She has an abdominal drain draining green bilious fluid as well as a urinary wick catheter in place draining clear urine.JOSIE drain in place EXTREMITIES: No clubbing, cyanosis, or edema. LABORATORY STUDIES: Please see below Blood culture, one of two bottles, was positive for Staphylococcus warneri. ASSESSMENT AND PLAN: This is an 82-year-old female who initially presented with ischemic colitis whose hospital course was complicated by atrial fibrillation. 1. Atrial fibrillation with rapid ventricular response. Cardiology help is gr eatly appreciated. She has been started on Anticoagulation, her rate is better controlled today 2. Hypertension. Continue with digoxin and metoprolol. Blood pressure is adequately controlled at this time. 3. Ischemic colitis. Management as per general surgery.she is maintained on abx 4. Leukocytosis: likely reactive related to surgery. She is continued on antibiotics continue to monitor 5. Hyperchloremic acidosis.improving, was secondary to IVF 6. Elevated CK, mild, secondary to surgery. 7. Abnormal blood culture, likely contaminant, one out of two bottles. A repeat has been ordered. Will continue following with you. VS, I&O, 24H, Erosbone Vital Signs/I&O Vital Signs Date Time Temp Pulse Resp B/P (MAP) Pulse Ox O2 Delivery O2 Flow Rate FiO2 05/27/18 12:38 98.0 107 18 131/71 (91) 90 1.0 05/27/18 00:14 Nasal Cannula 05/23/18 05:00 100 I&O- Last 24 Hours up to 6 AM 05/27/18 06:00 Intake Total 840 ml Output Total 2920 ml Balance -2080 ml Laboratory Data 24H LABS Laboratory Tests 2 05/26/18 15:35: 05/27/18 04:46: Nucleated Red Blood Cells % (auto) 0.0, Anion Gap 8, Glomerular Filtration Rate 51.2, Blood Urea Nitrogen 22H, Creatinine 1.09#, Sodium Level 139, Potassium Level 4.0, Chloride Level 111H, Carbon Dioxide Level 20L, Calcium Level 7.6L, Aspartate Amino Transf (AST/SGOT) 40H, Alanine Aminotransferase (ALT/SGPT) 28, Alkaline Phosphatase 90, Total Bilirubin 0.5, Total Protein 5.0L, Albumin 1.8L, Albumin/Globulin Ratio 0.56L CBC/BMP Laboratory Tests 05/27/18 04:46 Red Blood Count 4.13, Mean Corpuscular Volume 95.2, Mean Corpuscular Hemoglobin 31.2, Mean Corpuscular Hemoglobin Concent 32.8, Red Cell Distribution Width 14.3, Calcium Level 7.6 L, Aspartate Amino Transf (AST/SGOT) 40 H, Alanine Aminotransferase (ALT/SGPT) 28, Alkaline Phosphatase 90, Total Bilirubin 0.5, Total Protein 5.0 L, Albumin 1.8 L Microbiology Microbiology 05/26/18 Blood Culture, Received Pending 05/26/18 Blood Culture, Received Pending 05/25/18 Blood Culture - Preliminary, Resulted No Growth after 48 hours. All Specime... 05/22/18 Blood Culture - Final, Complete Staphylococcus Warneri 05/22/18 Blood Culture - Preliminary, Resulted No Growth after 72 hours. All specime... KERRI IBRAHIM MD May 27, 2018 15:21
[2018-05-27] MEDS ORDERED: METOPROLOL TART 50 MG TAB PO ONE (17:15)
[2018-05-27] MEDS: ENOXAPARIN 80 MG/0.8 ML SYRINGE (J1650) SC SCH (20:11)
[2018-05-27] MEDS: METOPROLOL TART 50 MG TAB PO SCH (20:12)
[2018-05-28] MEDS: IPRATROPIUM 0.5MG/ALBUTEROL 2.5MG INH SOL UD 3ML (DUONEB)(J7620) NEB SCH ×4 (00:12→21:05)
[2018-05-28] MEDS: metroNIDAZOLE 500 MG in APPROPRIATE DILUENT 1 EA IV SCH ×3 (01:40→16:01)
[2018-05-28] MEDS: CIPROFLOXACIN 400 MG in APPROPRIATE DILUENT 1 EA IV SCH ×2 (02:46→14:16)
[2018-05-28 04:00] VITALS: BP 133/62
[2018-05-28 05:19] LABS: HEMATOCRIT 38.8 % (36.0-47.0); HEMOGLOBIN 12.8 g/dl (12.0-15.5); MEAN CORPUSCULAR HEMOGLOBIN 31.4 pg (27.0-33.0); MEAN CORPUSCULAR VOLUME 95.3 fl (80.0-96.0); PLATELET COUNT, AUTOMATED 203 10^3/uL (150-450); RED BLOOD COUNT 4.07 10^6/uL (4.00-5.40); WHITE BLOOD COUNT 15.8 10^3/uL (4.0-10.0)
[2018-05-28 05:43] LABS: ALBUMIN 1.9 GM/DL (3.2-5.2); ALT/SGPT 29 U/L (12-78); BILIRUBIN,TOTAL 0.4 MG/DL (0.2-1.0); BLOOD UREA NITROGEN 21 MG/DL (7-18); CALCIUM LEVEL 7.9 MG/DL (8.8-10.2); CARBON DIOXIDE LEVEL 22 MEQ/L (21-32); CHLORIDE LEVEL 112 MEQ/L (98-107); GLOMERULAR FILTRATION RATE > 60.0 (>32); GLUCOSE, FASTING 132 MG/DL (70-100); POTASSIUM SERUM 4.1 MEQ/L (3.5-5.1); SODIUM LEVEL 140 MEQ/L (136-145); TOTAL PROTEIN 5.4 GM/DL (6.4-8.2)
[2018-05-28] MEDS: SLF 3 ML SYR IV SCH ×3 (06:00→20:24)
[2018-05-28 08:00] VITALS: BP 174/69
--- NOTE | 2018-05-28 08:54 | IPN ---
DATE OF SERVICE: 05/28/2018 Mrs. Henning is a little grouchy this morning. She still did not get anything to eat and she is asking for food. She seems to be rather frustrated in this regard. She also, according to her nurse, had an episode when she desaturated this morning when she was taken off oxygen. Apparently, her saturation dropped into the high 80s, but then came up again with supplemental oxygen. Simultaneously, she denied any chest pain or shortness of breath, but she looked in mild distress to the nurse. When I saw the patient at bedside, she looked comfortable. I did not appreciate any distress at all. Vital Signs: Blood pressure 133/62. Heart rate has been in the 60s. She converted to sinus rhythm. She is afebrile. Saturation is 90-92% on 1 liter of oxygen. Her fluid balance yesterday was recorded as negative 1100. She put out 2400 mL of urine. Weight is 88.6 kg, which is actually slightly less than yesterday. She is alert and oriented. Her jugular venous pulse (JVP) does not look high. Lungs have only fair air movement, but I do not appreciate any wheezing or crackles. Heart exam reveals a regular rhythm. There is a faint murmur over the aortic valve and there is a paradoxically splitting second heart sound. Abdomen is soft. No obvious tenderness. Extremities are free of edema. LABORATORIES: CBC: Hemoglobin 12.8, hematocrit 38, platelet count 203,000, WBC count 15.8 thousand. Basic Metabolic Panel: Sodium 140, potassium 4.1, BUN 21, creatinine 0.8, glucose 132. Albumin is 1.9. ASSESSMENT/PLAN: Mrs. Henning is an 82-year-old female who came with ischemic necrotic bowel and underwent emergent hemicolectomy. In the postoperative period, she developed atrial fibrillation with rapid ventricular response. At this point, she seems to be doing relatively well from a hemodynamic perspective. We started her on full anticoagulation last night. I think that it is appropriate to wait another day or two before we transition her to probably Eliquis as a long-term anticoagulation. Otherwise, I would continue her current doses of digoxin and metoprolol. Her heart rate seems to be well-controlled. If there are additional relapses of atrial fibrillation, we may consider additional antiarrhythmics, but at this point I would wait at least several more days. I am hoping that the patient will start eating and start being more mobilized, which I think is essential for recovery. I am not exactly certain how to explain the episode of desaturation this morning. She looked quite comfortable when I saw her, but we should consider even the possibility of atelectasis or even a worse case scenario pulmonary embolism. For pulmonary embolism (PE), she has been orally treated. As far as atelectasis is concerned, if she does not get better with mobilization, at the minimum we will need to get a chest x-ray.
[2018-05-28] MEDS: SIMETHICONE 80 MG CHEW TAB PO SCH ×4 (09:36→20:23)
[2018-05-28] MEDS: ALVIMOPAN 12 MG CAPSULE (ENTEREG) PO SCH ×2 (09:36→20:23)
[2018-05-28] MEDS: DIGOXIN 0.125 MG TAB PO SCH (09:36)
[2018-05-28] MEDS: METOPROLOL TART 50 MG TAB PO SCH ×2 (09:36→20:23)
[2018-05-28] MEDS: PANTOPRAZOLE 40MG INJ (PROTONIX) (C9113) IV SCH (09:37)
[2018-05-28] MEDS: ENOXAPARIN 80 MG/0.8 ML SYRINGE (J1650) SC SCH ×2 (09:37→20:23)
[2018-05-28 12:00] VITALS: BP 152/68
--- NOTE | 2018-05-28 12:37 | IPNPDOC ---
Date Seen The patient was seen on 05/28/18. Progress Note SUBJECTIVE: Patient reports no new complaints today she tells me that she wants to eat, denies CP, sob, palpitations OBJECTIVE: Vital signs: Please see below GENERAL: She is a pleasant, elderly female sitting up in bed. She does not appear to be in any acute distress. HEENT: Moist mucous membranes. No appreciable elevation in central venous pressure (CVP). CARDIOVASCULAR: S1, S2, regular. She is not tachycardic at the time of my exam. No additional heart sounds appreciated RESPIRATORY: Diminished breath sounds at the bases.Good air movement ABDOMEN: Decreased bowel sounds. Dressings clean, dry, and intact. She has an abdominal drain draining green bilious fluid as well as a urinary wick catheter in place draining clear urine.JOSIE drain in place EXTREMITIES: No clubbing, cyanosis, or edema. LABORATORY STUDIES: Please see below Blood culture, one of two bottles, was positive for Staphylococcus warneri. ASSESSMENT AND PLAN: This is an 82-year-old female who initially presented with ischemic colitis whose hospital course was complicated by atrial fibrillation. 1. Atrial fibrillation with rapid ventricular response. Cardiology help is greatly appreciated. She has been started on Anticoagulation, her rate is better controlled at this time. 2. Hypertension. Continue with digoxin 0.125mg and metoprolol tartrate 50mg PO BID. Blood pressure is adequately controlled at this time. 3. Ischemic colitis. Management as per general surgery.she is maintained on abx 4. Leukocytosis: likely reactive related to surgery, stable. She is continued on antibiotics continue to monitor 5. Hyperchloremic acidosis.resolving was secondary to IVF 67. Abnormal blood culture, likely contaminant, one out of two bottles. A repeat has been ordered and negative. Will continue following with you. VS, I&O, 24H, Milagro Vital Signs/I&O Vital Signs Date Time Temp Pulse Resp B/P (MAP) Pulse Ox O2 Delivery O2 Flow Rate FiO2 05/28/18 09:36 95 174/69 05/28/18 08:00 2.0 05/28/18 08:00 98.7 22 90 05/28/18 00:12 Nasal Cannula 05/23/18 05:00 100 I&O- Last 24 Hours up to 6 AM 05/28/18 06:00 Intake Total 1115 ml Output Total 660 ml Balance 455 ml Laboratory Data 24H LABS Laboratory Tests 2 05/28/18 04:52: Nucleated Red Blood Cells % (auto) 0.0, Anion Gap 6L, Glomerular Filtration Rate > 60.0, Blood Urea Nitrogen 21H, Creatinine 0.80, Sodium Level 140, Potassium Le pancho 4.1, Chloride Level 112H, Carbon Dioxide Level 22, Calcium Level 7.9L, Aspartate Amino Transf (AST/SGOT) 33, Alanine Aminotransferase (ALT/SGPT) 29, Alkaline Phosphatase 86, Total Bilirubin 0.4, Total Protein 5.4L, Albumin 1.9L, Albumin/Globulin Ratio 0.54L CBC/BMP Laboratory Tests 05/28/18 04:52 Red Blood Count 4.07, Mean Corpuscular Volume 95.3, Mean Corpuscular Hemoglobin 31.4, Mean Corpuscular Hemoglobin Concent 33.0, Red Cell Distribution Width 14.7 H, Calcium Level 7.9 L, Aspartate Amino Transf (AST/SGOT) 33, Alanine Aminotransferase (ALT/SGPT) 29, Alkaline Phosphatase 86, Total Bilirubin 0.4, Total Protein 5.4 L, Albumin 1.9 L Microbiology Microbiology 05/26/18 Blood Culture - Preliminary, Resulted No growth after 24 hours . All specim... 05/26/18 Blood Culture - Preliminary, Resulted No growth after 24 hours . All specim... 05/25/18 Blood Culture - Preliminary, Resulted No Growth after 72 hours. All specime... 05/22/18 Blood Culture - Final, Complete Staphylococcus Warneri 05/22/18 Blood Culture - Final, Complete NO GROWTH AFTER 5 DAYS KERRI IBRAHIM MD May 28, 2018 12:37
--- NOTE | 2018-05-28 13:12 | REP ---
Portable chest, 12:53 p.m., single AP semi upright view: There are bilateral pleural effusions, unchanged. There are bilateral lower lobe infiltrates, unchanged. The patient is rotated. Cardiac size is upper normal. The jadyn and mediastinum are obscured by patient rotation. There are surgical clips in the left axilla. Impression: No significant interval change except for patient rotation. Electronically Signed by Mario Lira MD 05/28/2018 01:04 P
[2018-05-28] MEDS ORDERED: LIDOCAINE 1% MDV 20ML VIAL As Ordered ONE (14:35)
[2018-05-28] MEDS ORDERED: FUROSEMIDE 20 MG/2 ML VIAL (J1940) IV ONE (15:00)
[2018-05-28 16:00] VITALS: BP 134/63
--- NOTE | 2018-05-28 17:34 | REP ---
Procedure: PICC line insertion with Dani The procedure was performed under the direct supervision of Dr. Bell. The risks and benefits of the procedure were explained to the patient and informed consent was obtained. The left basilic vein was localized using ultrasound guidance. The skin was prepped and draped in a sterile fashion. 2% lidocaine was used as a local anesthetic. Using ultrasound guidance the basilic vein was cannulated and a 0.018 guidewire was inserted and advanced to the SVC using fluoroscopic guidance. The needle was removed and a 5.5 [place] dilator and peel-away sheath was inserted over the guide wire. A 5.5 [place] dual lumen catheter was cut to length of 46 cm. The dilator was removed and the catheter was inserted over the guide wire with the tip ending in the SVC. The peel-away sheath was removed and the catheter was flushed with heparinized saline as per Hospital protocol. The catheter was affixed to the skin and a sterile dressing was applied. The patient tolerated the procedure well and there were no immediate complications. 0.5 minutes of fluoro time was utilized for this procedure. Reviewed by KRISSY Warren 05/28/2018 04:14 P Electronically Signed by Dequan Bell MD 05/28/2018 05:24 P
[2018-05-28] MEDS: SODIUM CHLORIDE 0.9% INJ 10 ML SYR IV SCH (18:00)
[2018-05-28 20:00] VITALS: BP 149/71
[2018-05-28 23:59] VITALS: BP 118/60
[2018-05-29] MEDS: metroNIDAZOLE 500 MG in APPROPRIATE DILUENT 1 EA IV SCH ×3 (01:26→17:28)
[2018-05-29] MEDS: IPRATROPIUM 0.5MG/ALBUTEROL 2.5MG INH SOL UD 3ML (DUONEB)(J7620) NEB SCH ×4 (01:33→20:12)
[2018-05-29] MEDS: CIPROFLOXACIN 400 MG in APPROPRIATE DILUENT 1 EA IV SCH ×2 (02:42→12:41)
[2018-05-29 04:00] VITALS: BP 159/73
[2018-05-29 05:20] LABS: HEMOGLOBIN 11.6 g/dl (12.0-15.5); MEAN CORPUSCULAR HEMOGLOBIN 31.6 pg (27.0-33.0); MEAN CORPUSCULAR HGB CONC 33.1 g/dl (32.0-36.5); MEAN CORPUSCULAR VOLUME 95.4 fl (80.0-96.0); PLATELET COUNT, AUTOMATED 178 10^3/uL (150-450); RED BLOOD COUNT 3.67 10^6/uL (4.00-5.40); WHITE BLOOD COUNT 15.6 10^3/uL (4.0-10.0)
[2018-05-29] MEDS: SODIUM CHLORIDE 0.9% INJ 10 ML SYR IV PRN (05:48)
[2018-05-29] MEDS: SLF 3 ML SYR IV SCH ×3 (05:50→14:42)
[2018-05-29] MEDS: SODIUM CHLORIDE 0.9% INJ 10 ML SYR IV SCH ×2 (05:51→17:28)
[2018-05-29 06:02] LABS: ALBUMIN 1.8 GM/DL (3.2-5.2); BILIRUBIN,TOTAL 0.5 MG/DL (0.2-1.0); CALCIUM LEVEL 7.4 MG/DL (8.8-10.2); CREATININE FOR GFR 1.06 MG/DL (0.55-1.30); GLOMERULAR FILTRATION RATE 52.8 (>32); POTASSIUM SERUM 4.2 MEQ/L (3.5-5.1); TOTAL PROTEIN 4.3 GM/DL (6.4-8.2)
[2018-05-29 08:00] VITALS: BP 128/63
--- NOTE | 2018-05-29 08:22 | IPN ---
DATE: 05/29/2018 Mrs. Henning remained in sinus rhythm during the day yesterday. I reviewed her telemetry tracing and she had a few episodes of nonsustained ventricular tachycardia only a few beats at the time. She was asymptomatic throughout. This morning she again is in relatively poor mood. She is somewhat happy that finally she is allowed to have some oral intake and she is eating Jello when I saw her. Denies any chest pain or shortness of breath. Vital signs: Blood pressure 159/72, heart rate has been in 80s, afebrile. Saturation 93% on 2 liters of oxygen. Her fluid balance yesterday was recorded as roughly equal. Weight is 87.1 kg, which is slightly down from yesterday. There has not been any appreciable change in her weight since 4 days ago. She is alert and oriented. Her jugular venous pulse (JVP) is not high. Lungs are relatively clear to auscultation but air movement is poor due to her poor inspiratory effort. No wheezing or crackles are appreciated though. Heart exam reveals regular rhythm with paradoxically split second heart sound. Abdomen is soft. Bowel sounds are positive. Extremities are free of edema. Neurologically, I do not appreciate any focal signs but there is generalized weakness. Laboratory ekndrick, CBC revealed WBC count 15.6, hemoglobin 11.6, hematocrit 35, platelet count 178,000. Basic metabolic panel is normal but for glucose of 123. Albumin was 1.8 ASSESSMENT AND PLAN: Mrs. Henning is an 82-year-old female, who underwent emergency hemicolectomy for ischemic bowel, in postoperative period developed atrial fibrillation with rapid ventricular response (RVR) but it looks like that her situation is calming down and she has been maintaining sinus rhythm. She has preserved left ventricular systolic function, has been on combination of metoprolol and digoxin and I would continue the same for another few days, but then I think we can discontinue digoxin and leave her on metoprolol only. She has been anticoagulated so far with only Lovenox because her hemoglobin is a little lower today than it was yesterday. I would probably continue the same one more day before we give her oral anticoagulants. First of all we should make sure she is not bleeding before long-term anticoagulation is instituted. She does have a component of heart failure, which I think is in part due to her low albumin level. I do not believe we need to give her diuretics yet, but I would like to get her mobilized quickly. If necessary, we can give her Lasix on as-needed basis.
[2018-05-29] MEDS: DIGOXIN 0.125 MG TAB PO SCH (09:53)
[2018-05-29] MEDS: SIMETHICONE 80 MG CHEW TAB PO SCH ×4 (09:54→20:48)
[2018-05-29] MEDS: ALVIMOPAN 12 MG CAPSULE (ENTEREG) PO SCH ×2 (09:54→20:48)
[2018-05-29] MEDS: ENOXAPARIN 80 MG/0.8 ML SYRINGE (J1650) SC SCH (09:54)
[2018-05-29] MEDS: PANTOPRAZOLE 40MG INJ (PROTONIX) (C9113) IV SCH (09:54)
[2018-05-29] MEDS: METOPROLOL TART 50 MG TAB PO SCH ×2 (09:54→20:48)
[2018-05-29 12:00] VITALS: BP 124/71
[2018-05-29] MEDS: MORPHINE 4 MG/ML 1ML VIAL/SYRINGE (J2270) IV PRN ×2 (12:42→21:10)
[2018-05-29 13:39] LABS: CLOSTRIDIUM DIFFICILE PCR NEGATIVE (NEGATIVE)
[2018-05-29 15:10] LABS: HEMATOCRIT 33.6 % (36.0-47.0); HEMOGLOBIN 11.1 g/dl (12.0-15.5)
[2018-05-29 16:00] VITALS: BP 111/57
--- NOTE | 2018-05-29 18:14 | IPNPDOC ---
Date Seen The patient was seen on 05/29/18. Progress Note SUBJECTIVE: Ms. Henning is a 82-year-old female who initially presented with ischemic colitis whose hospital course was complicated by atrial fibrillation. She was seen today resting in bed and she says that she feels better. She states she does have a slight cough and some abdominal pain on the left side. She also reports that her heels hurt where they are resting on the bed. She denies SOB, n/v, palpitations, and orthopnea. OBJECTIVE PHYSICAL EXAMINATION: VITAL SIGNS: Please see below. GENERAL: Awake, cooperative, A&OX3 HEENT: EOMI, atrumatic, supple CARDIOVASCULAR: Regular rate, normal S1 and S2. Systolic ejection murmur heard at sternal border of 2nd intercostal space. No rubs or gallops RESPIRATORY: Lungs CTA bilaterally. ABDOMINAL: Midline incision is intact without drainage, nontender to palpation EXTREMITIES: Slight pitting edema in the bilateral LE. No evidence of skin break down over her heels LABORATORY DATA, IMAGING STUDIES, MICROBIOLOGY: Please see below. Echocardiogram: 1. Study is of very limited technical quality. 2. Normal left ventricle (LV) size. Probably normal or near normal LV systolic function based on very limited visualization. Septal wall motion abnormality likely related to underlying conductive system disease. 3. Unable to comment on the right ventricular systolic function. 4. Left atrial enlargement. 5. Aortic sclerosis with trivial stenosis. 6. No hemodynamically significant mitral valvular disease. 7. Mild mitral insufficiency. 8. Probably normal central venous pressure. 9. At least moderate pulmonary hypertension. DVT prophylaxis ordered?: Lovenox ASSESSMENT AND PLAN: This is an 82-year-old female who initially presented with ischemic colitis whose hospital course was complicated by atrial fibrillation. Atrial fibrillation with rapid ventricular response. -S: patient is asymptomatic. Reports no SOB or palpitations -Telemetry shows patient remains in sinus rhythm with PVCs and a few beats of n onsustained VTach -Rate control: metoprolol. Discontinue digoxin - Will DC anticoagulation (See below) -Cardiology help is greatly appreciated. Melanotic stools - Remain asymptomatic - Currently hemodynamically stable - DC anticoagulation for now - trend H&H - will transfuse as required Hypertension -c/w metoprolol tartrate 50mg PO BID. -Blood pressure is adequately controlled at this time. Acute diastolic CHF: possibly 2/2 tachyarrhythmia -Patient symptomatically improved with IV lasix x1 -PT is consulted, ambulation recommended by cardiology -c/w lasix as needed Ischemic colitis -she is maintained on abx -Management as per general surgery Leukocytosis: likely reactive related to surgery -She is continued on antibiotics -Will monitor Hyperchloremic acidosis: secondary to IVF (resolving) Abnormal blood culture: x1 culture, likely contaminant -No preliminary growth of repeat cultures VS, I&O, 24H, Fishbone Vital Signs/I&O Vital Signs Date Time Temp Pulse Resp B/P (MAP) Pulse Ox O2 Delivery O2 Flow Rate FiO2 05/29/18 09:54 88 128/63 05/29/18 08:00 98.5 18 99 2.0 05/28/18 00:12 Nasal Cannula 05/23/18 05:00 100 I&O- Last 24 Hours up to 6 AM 05/29/18 06:00 Intake Total 120 ml Output Total 185 ml Balance -65 ml Laboratory Data 24H LABS Laboratory Tests 2 05/29/18 05:00: Nucleated Red Blood Cells % (auto) 0.0, Anion Gap 7L, Glomerular Filtration Rate 52.8, Blood Urea Nitrogen 31H, Creatinine 1.06, Sodium Level 140, Potassium Level 4.2, Chloride Level 111H, Carbon Dioxide Level 22, Calcium Level 7.4L, Aspartate Amino Transf (AST/SGOT) 27, Alanine Aminotransferase (ALT/SGPT) 22, Alkaline Phosphatase 68, Total Bilirubin 0.5, Total Protein 4.3#L, Albumin 1.8L, Albumin/Globulin Ratio 0.72L CBC/BMP Laboratory Tests 05/29/18 05:00 Red Blood Count 3.67 L, Mean Corpuscular Volume 95.4, Mean Corpuscular Hemoglobin 31.6, Mean Corpuscular Hemoglobin Concent 33.1, Red Cell Distribution Width 14.8 H, Calcium Level 7.4 L, Aspartate Amino Transf (AST/SGOT) 27, Alanine Aminotransferase (ALT/SGPT) 22, Alkaline Phosphatase 68, Total Bilirubin 0.5, Total Protein 4.3 #L, Albumin 1.8 L Microbiology Microbiology 05/26/18 Blood Culture - Preliminary, Resulted No Growth after 48 hours. All Specime... 05/26/18 Blood Culture - Preliminary, Resulted No Growth after 48 hours. All Specime... 05/25/18 Blood Culture - Preliminary, Resulted No Growth after 72 hours. All specime... 05/22/18 Blood Culture - Final, Complete Staphylococcus Warneri 05/22/18 Blood Culture - Final, Complete NO GROWTH AFTER 5 DAYS GME ATTESTATION GME ATTESTATION My faculty preceptor for this patient encounter was physically present during the encounter and was fully available. All aspects of the patient interview, examination, medical decision making process, and medical care plan development were reviewed and approved by the faculty preceptor. The faculty preceptor is aware and concurs with the plan as stated in the body of this note and will attest to such by his/her cosignature. ATTENDING NOTE I, Tesha Archuleta, have both independently examined this patient as well as reviewed the documentation. I have discussed in detail with the resident the findings and plan of treatment as documented in the residents documentation. I will continue to follow the patient and offer further guidance to the patients care as necessary during this hospital stay. JAYDON LANE S-III May 29, 2018 11:39 MALCOM ALLEN DO May 29, 2018 18:14 TESHA ARCHULETA MD May 29, 2018 18:54
[2018-05-29 20:00] VITALS: BP 128/60
[2018-05-29 21:26] LABS: HEMATOCRIT 33.9 % (36.0-47.0); HEMOGLOBIN 11.2 g/dl (12.0-15.5)
[2018-05-29 23:59] VITALS: BP 127/82
[2018-05-30] MEDS: metroNIDAZOLE 500 MG in APPROPRIATE DILUENT 1 EA IV SCH ×2 (00:38→08:19)
[2018-05-30] MEDS: MORPHINE 4 MG/ML 1ML VIAL/SYRINGE (J2270) IV PRN (00:39)
[2018-05-30] MEDS: CIPROFLOXACIN 400 MG in APPROPRIATE DILUENT 1 EA IV SCH (01:59)
[2018-05-30] MEDS: IPRATROPIUM 0.5MG/ALBUTEROL 2.5MG INH SOL UD 3ML (DUONEB)(J7620) NEB SCH ×4 (02:00→19:54)
[2018-05-30 02:08] LABS: HEMATOCRIT 33.8 % (36.0-47.0)
[2018-05-30 04:00] VITALS: BP 126/57
[2018-05-30] MEDS: SODIUM CHLORIDE 0.9% INJ 10 ML SYR IV SCH ×2 (04:46→16:51)
[2018-05-30] MEDS: SLF 3 ML SYR IV SCH ×3 (04:46→20:13)
[2018-05-30 05:26] LABS: HEMATOCRIT 33.7 % (36.0-47.0); MEAN CORPUSCULAR HEMOGLOBIN 31.5 pg (27.0-33.0); MEAN CORPUSCULAR HGB CONC 32.6 g/dl (32.0-36.5); MEAN CORPUSCULAR VOLUME 96.6 fl (80.0-96.0); PLATELET COUNT, AUTOMATED 190 10^3/uL (150-450); RED BLOOD COUNT 3.49 10^6/uL (4.00-5.40); WHITE BLOOD COUNT 17.8 10^3/uL (4.0-10.0)
[2018-05-30 05:48] LABS: ALBUMIN 1.7 GM/DL (3.2-5.2); BILIRUBIN,TOTAL 0.4 MG/DL (0.2-1.0); CALCIUM LEVEL 6.9 MG/DL (8.8-10.2); CREATININE FOR GFR 2.34 MG/DL (0.55-1.30); GLOMERULAR FILTRATION RATE 21.2 (>32); POTASSIUM SERUM 4.5 MEQ/L (3.5-5.1); TOTAL PROTEIN 4.1 GM/DL (6.4-8.2)
--- NOTE | 2018-05-30 07:46 | IPN ---
DATE OF SERVICE: 05/30/2018 Mrs. Henning apparently started developing malik stools yesterday. She had several bowel movements. Consequently, there was suspicion that she is bleeding from her gastrointestinal (GI) tract and her Lovenox was discontinued. She also had a run of nonsustained ventricular tachycardia (VT) that was longer than her prior episode yesterday morning. It led to discontinuation of digoxin and there has not been any recurrence since. This morning, she tells me that she is feeling better, but she does complain about abdominal pain. She denies any chest pain or shortness of breath. Vital Signs: Blood pressure 126/57. Heart rate has been in the 70s. She has been consistently in sinus rhythm. She is afebrile. Saturation is 98% on 2 liters of oxygen. Her fluid balance yesterday was probably poorly documented, but actually no urine output was recorded as such. Weight is 86.6 kg. She is alert and oriented, somewhat somnolent. She is really difficult to understand. Her mouth is clearly dry. I do not appreciate any jugular venous pulse (JVP) elevations. Lungs are reasonably clear to auscultation. No wheezes or crackles are noted. Breath sounds are diminished over the bases. Heart exam reveals a regular rhythm. Abdomen is tender today, more in left lower quadrant than other segments. No rebound tenderness is appreciated by my exam. There is some trace edema, mostly in right-sided extremities, but nothing overly impressive. Laboratory-kendrick, basic metabolic panel with sodium 139, potassium 4.5, BUN 42, creatinine 2.3, for a GFR 21, and a glucose 123. Albumin is 1.7. CBC: Hemoglobin 11, hematocrit 33.7, platelet count 190,000. ASSESSMENT AND PLAN: Mrs. Henning is an 82-year-old female who presented with a necrotic bowel and underwent emergency right sided hemicolectomy. In the postoperative period, she developed atrial fibrillation, but in last 48 hours has been maintaining sinus rhythm on combination of metoprolol and digoxin. She had several runs of nonsustained ventricular tachycardia, the longest one was yesterday morning. I decided to discontinue the digoxin, but otherwise her electrolytes were fine and she has grossly preserved left ventricular systolic function even though she does have chronic left bundle branch block. The developments since yesterday are certainly worrisome. Even though the malik stools were reported, her hemoglobin and hematocrit have remained mostly stable. What is a lot more concerning to me is the development of acute renal failure with a fairly dramatic jump in the creatinine since yesterday. I suspect that it is prerenal due to relative dehydration, but certainly a GI pathology is a possibility, especially with new tenderness and some degree of swelling on the right side of the abdomen. There is a plan for a CT scan of the abdomen with oral contrast administration. From my perspective, I would recommend she gets intravenously hydrated. As far as the cardiac issues are concerned, I will continue current management. Obviously, anticoagulation will be held until the situation stabilizes and will figure out whether or not she has active bleeding. As far as the antiarrhythmics are concerned, will keep her only on metoprolol.
[2018-05-30 08:00] VITALS: BP 130/68
[2018-05-30] MEDS: SIMETHICONE 80 MG CHEW TAB PO SCH ×5 (08:00→20:13)
[2018-05-30] MEDS ORDERED: NS 1,000 ML IV SCH (08:00)
[2018-05-30] MEDS: PANTOPRAZOLE 40MG INJ (PROTONIX) (C9113) IV SCH (08:18)
[2018-05-30] MEDS: GASTROGRAFIN SOLUTION 30ML PO SCH ×2 (08:18→08:20)
[2018-05-30] MEDS: METOPROLOL TART 50 MG TAB PO SCH ×2 (08:19→20:13)
--- NOTE | 2018-05-30 08:49 | IPN ---
DATE: 05/28/2018 Overall, at this point, she has had a relatively good weekend , but what I am looking at is she has had some shortness of breath issues. From a GI standpoint, she has been doing relatively well, but she has had some diarrheal bowel movements this weekend. No fevers or chills. However, she was started on tube feeds and I am wondering if some of the diarrhea was associated with that. Her white count did bump up to 15,000 however. She is not complaining of any significant increase in pain, although she is quite hard to understand. This is baseline for her. Her family is with her this morning. She has not had any nausea. Her G tube has not been putting out any drainage. She has been on antibiotics for presumed infection, i.e., with the ischemic right colon. We put her on Cipro and Flagyl empirically. On her physical exam, otherwise her abdomen is softly distended, but she has edema throughout her abdominal wall which is significant and severe. She has it in the flanks and lower extremities. She does not have any significant drainage from her incision. No erythema. Cristhian-Torres drain is serosanguineous. Her G tube has some minimal bilious output, but no tube feeds coming back. IMPRESSION AND PLAN: 1. I would like to stop the tube feeds. This may be related to her diarrhea that she had. Will see how she does off the tube feeds. 2. I would like to clamp her tube and start her on some clear liquids and see how she does with that. 3. From an overall fluid status, she is up many kg and despite her albumin is low I do feel that some of that is dilutional, but it is reasonable to have her diuresed from a surgical standpoint. She does have a creatinine which is 0.8. Thus, we will see how she does over the next 24-48 hours.
--- NOTE | 2018-05-30 08:53 | IPN ---
DATE: 05/30/2018 The patient's weight has come down since yesterday and overall she appears more conversant today, a little more awake and she continues to be afebrile. Her blood pressure has been good. Her albumin is still low. Her white count is stable at 15.6, although it has not really changed from that standpoint. On her physical exam her abdomen is softly distended but she is mildly tender and it is hard to tell if it is the generalized abdominal wall edema given that she is sore every where and it appears to be much more of a soreness than true peritoneal signs. Cristhian-Torres drain is serosanguineous. There is no bilious drainage. No stool. Her G tube is clamped and the site is clean and dry. She does have some reactive erythema on the lateral aspect of her abdominal wall but no evidence of cellulitis. No evidence of other significant abnormality at this time. I feel that it is reasonable. IMPRESSION AND PLAN: From a GI tract patient has had decreased diarrhea overnight. I do feel that we will keep her on a clear liquid diet however, and we will see how she does overnight and we will get a followup CAT scan tomorrow if there is any ongoing issues. From the standpoint of her white count if this drops down we can forego any additional intervention, however, my concern with her lungs is the pleural effusions and the slight edema medicine as well as cardiology have given their insight into this area and feel that it is mostly albumin associated. We will continue with supportive care at this point, but I would like to keep her on clears for right now. I anticipate if she tolerates clears we can probably advance her diet relatively soon and even tomorrow to a full liquid diet or even to regular diet relatively soon. Also I would like to keep her on the clears given her elevated white count and the significant operative intervention that we had for her anticipating that she will have a predisposition to prolonged ileus.
--- NOTE | 2018-05-30 08:54 | IPN ---
DATE: 05/30/2018 The patient's white count bumped up this morning. Although, her creatinine did too and I am wondering if this is somewhat of a hemoconcentration. In any case, this is being addressed by medicine service right now. We have not had a good hold on her urine output issues and her intake and output. We have been going by her weight and although her weight has dropped, truly at this point, intake and output are lacking given that she is incontinent of urine. From the standpoint of tolerating clears, she seems to be doing well with the clears not having any significant nausea. She has had reportedly some darker stools and this was checked for blood and did reveal some blood. Although, her hematocrit has stayed stable and does not appear to have any ongoing "bleeding." On her physical exam, she has had diffuse edema but without any significant peritoneal signs, and I wonder if some of her discomfort with palpation is mostly her edema and anasarca that she has. No other cellulitis or inflammatory changes are appreciated. I ordered a CAT scan for this morning without IV contrast. Given the elevated creatinine, will forego IV contrast and will see if there is any intra-abdominal process that is ongoing. One concern obviously is some intra-abdominal abscess. We will see if there is any evidence of this on CAT scan and may need a percutaneous drainage should this be the case. I have spoken with the hospitalist and they plan on consulting infectious disease, which is very reasonable given her elevated white count and ongoing issues at this time. I will replace the Schmitz for better monitoring.
[2018-05-30] MEDS ORDERED: MEROPENEM INJ 1 GM in APPROPRIATE DILUENT 1 EA IV SCH (11:00)
[2018-05-30 12:00] VITALS: BP 131/64
[2018-05-30] MEDS: MEROPENEM INJ 500 MG in APPROPRIATE DILUENT 1 EA IV SCH ×2 (12:34→23:42)
--- NOTE | 2018-05-30 13:30 | IPNPDOC ---
Date Seen The patient was seen on 05/30/18. Progress Note SUBJECTIVE: Ms. Henning is a 82-year-old female who initially presented with ischemic colitis whose hospital course was complicated by atrial fibrillation. She was seen today resting in bed and she says that she is feeling better but she does reports that she is becoming more short of breath. She has a wet cough for a couple days day while is improving today. Nursing reports that overnight they attempting to ambulate her and she quickly desaturated to 82% O2 on 2L which resolved when they laid her back in bed. It was also reported that she has a pitting, erythematous area on her right lateral of her abdomen which was marked by nursing. Does admit to having some abdominal discomfort on the left side though. She denies having any nausea or vomiting. She did have melanotic stool E yesterday which was reported by nursing and her Lovenox was stopped. OBJECTIVE PHYSICAL EXAMINATION: VITAL SIGNS: Please see below. GENERAL: Drowsy but arousable, she is appropriately answering questions when asked multiple times A&OX3 HEENT: EOMI, atraumatic, supple CARDIOVASCULAR: Regular rate, normal S1 and S2. Systolic ejection murmur heard at sternal border of 2nd intercostal space. No rubs or gallops RESPIRATORY: Lungs CTA bilaterally. No rales, rhonchi, or wheezes appreciated. ABDOMINAL: Midline incision is intact without drainage, nontender to palpation. Region on lower right flank that is erythematous and pitting. EXTREMITIES: No evidence of skin break down over her heels LABORATORY DATA, IMAGING STUDIES, MICROBIOLOGY: Please see below. Echocardiogram: 1. Study is of very limited technical quality. 2. Normal left ventricle (LV) size. Probably normal or near normal LV systolic function based on very limited visualization. Septal wall motion abnormality likely related to underlying conductive system disease. 3. Unable to comment on the right ventricular systolic function. 4. Left atrial enlargement. 5. Aortic sclerosis with trivial stenosis. 6. No hemodynamically significant mitral valvular disease. 7. Mild mitral insufficiency. 8. Probably normal central venous pressure. 9. At least moderate pulmonary hypertension. DVT prophylaxis ordered?: Lovenox ASSESSMENT AND PLAN: This is an 82-year-old female who initially presented with ischemic colitis whose hospital course was complicated by atrial fibrillation. Atrial fibrillation with rapid ventricular response -Telemetry shows patient remains in sinus rhythm with PVCs and a few beats of nonsustained VTach -Rate control: metoprolol. -DC anticoagulation due to melanotic stools reported yesterday 05/29 -Cardiology help is greatly appreciated. Melanotic stools - Remains asymptomatic - Currently hemodynamically stable. - d/c anticoagulation for now - trend H&H, will transfuse as needed if Hemoglobin <7 or actively bleeding. Acute diastolic CHF: possibly 2/2 tachyarrhythmia -Patient is reporting increasing SOB and wet cough -CXR 05/28: cardiac size upper limit of normal, bilateral pleural effusions -Albumin has decreased to 1.7 Acute kidney injury -Creatinine today bumped to 2.34 from 1.06. -started gentle hydration: NS at 80 mls/hr -Last lasix 20 MGx1 05/28. -Urine output: in the last 24 hours: 250ml -Nephrology consulted. Appreciate their recommendations Leukocytosis: unsure if this reactive related to surgery vs an underlying infection -White count has increased today to 17.8 -CT abdomen pending to r/o intraabdominal infectious etiologies -d/c metronidazole and cipro, start meropenem 500 mg IV for broad gram negative coverage -will repeat procacitonin in the AM. -pending results of the imaging and clinical picture will consider if ID consult as needed Ischemic colitis -Management as per general surgery Hypertension -c/w metoprolol tartrate 50mg PO BID. -Blood pressure is adequately controlled at this time. Hyperchloremic acidosis: secondary to IVF (resolving) Abnormal blood culture: x1 culture, likely contaminant -No growth on repeat cultures VS, I&O, 24H, Fishbone Vital Signs/I&O Vital Signs Date Time Temp Pulse Resp B/P (MAP) Pulse Ox O2 Delivery O2 Flow Rate FiO2 05/30/18 08:19 88 126/57 05/30/18 08:00 97.9 18 95 2.0 05/28/18 00:12 Nasal Cannula I&O- Last 24 Hours up to 6 AM 05/30/18 06:00 Intake Total 540 ml Output Total 300 ml Balance 240 ml Laboratory Data 24H LABS Laboratory Tests 2 05/30/18 04:50: Nucleated Red Blood Cells % (auto) 0.0, Anion Gap 6L, Glomerular Filtration Rate 21.2L, Blood Urea Nitrogen 42H, Creatinine 2.34#H, Sodium Level 139, Potassium Level 4.5, Chloride Level 110H, Carbon Dioxide Level 23, Calcium Level 6.9L, Aspartate Amino Transf (AST/SGOT) 21, Alanine Aminotransferase (ALT/SGPT) 18, Alkaline Phosphatase 67, Total Bilirubin 0.4, Total Protein 4.1L, Albumin 1.7L, Albumin/Globulin Ratio 0.71L CBC/BMP Laboratory Tests 05/29/18 14:35 05/29/18 21:14 05/30/18 02:02 05/30/18 04:50 Red Blood Count 3.49 L, Mean Corpuscular Volume 96.6 H, Mean Corpuscular Hemoglobin 31.5, Mean Corpuscular Hemoglobin Concent 32.6, Red Cell Distribution Width 15.2 H, Calcium Level 6.9 L, Aspartate Amino Transf (AST/SGOT) 21, Alanine Aminotransferase (ALT/SGPT) 18, Alkaline Phosphatase 67, Total Bilirubin 0.4, Total Protein 4.1 L, Albumin 1.7 L Microbiology Microbiology 05/26/18 Blood Culture - Preliminary, Resulted No Growth after 72 hours. All specime... 05/26/18 Blood Culture - Preliminary, Resulted No Growth after 72 hours. All specime... 05/25/18 Blood Culture - Final, Complete NO GROWTH AFTER 5 DAYS 05/22/18 Blood Culture - Final, Complete Staphylococcus Warneri 05/22/18 Blood Culture - Final, Complete NO GROWTH AFTER 5 DAYS 05/29/18 Stool Occult Blood (BEN) - Final, Complete GME ATTESTATION GME ATTESTATION My faculty preceptor for this patient encounter was physically present during the encounter and was fully available. All aspects of the patient interview, examination, medical decision making process, and medical care plan development were reviewed and approved by the faculty preceptor. The faculty preceptor is aware and concurs with the plan as stated in the body of this note and will attest to such by his/her cosignature. ATTENDING NOTE I, Tesha Archuleta, have both independently examined this patient as well as reviewed the documentation. I have discussed in detail with the resident the findings and plan of treatment as documented in the residents documentation. I will continue to follow the patient and offer further guidance to the patients care as necessary during this hospital stay. JAYDON LANE S-III May 30, 2018 13:18 MALCOM ALLEN DO May 30, 2018 13:30 TESHA ARCHULETA MD May 30, 2018 17:20
--- NOTE | 2018-05-30 14:09 | REP ---
PORTABLE CHEST X-RAY: Single view. HISTORY: Shortness of breath. COMPARISON CHEST X-RAY: May 28, 2018. FINDINGS: A left-sided PICC line is seen in good position with its tip in the expected location of the superior vena cava. There are surgical clips in the left axillary soft tissues. EKG monitoring electrodes overlie the chest. Bilateral pleural effusions are noted blunting the pleural angles as before, right greater than left. There is plate-like atelectasis in the left base. Heart is enlarged. There are degenerative changes in the thoracic spine and thoracic aorta. IMPRESSION: Bilateral effusions and cardiomegaly unchanged. PICC line in position. Electronically Signed by Dequan Bell MD 05/30/2018 05:28 P
[2018-05-30 14:56] LABS: CHLORIDE,RANDOM URINE 44 MEQ/L; CREATININE,RANDOM URINE 46.8 MG/DL; POTASSIUM RANDOM URINE 25.3 MEQ/L; SODIUM,RANDOM URINE 32 MEQ/L
[2018-05-30 15:02] LABS: AMORPHOUS SEDIMENT SMALL (NEGATIVE); APPEARANCE, URINE CLOUDY (CLEAR); BACTERIA, URINE AUTO 1+ (NEGATIVE); BILIRUBIN, URINE AUTO NEGATIVE (NEGATIVE); BLOOD, URINE BLOOD 3+ (NEGATIVE); COLOR, URINE YELLOW (YELLOW); GLUCOSE, URINE (UA) AUTO NEGATIVE (NEGATIVE); KETONE, URINE AUTO NEGATIVE (NEGATIVE); LEUKOCYTE ESTERASE, URINE AUTO TRACE (NEGATIVE); NITRITE, URINE AUTO NEGATIVE (NEGATIVE); PROTEIN, URINE AUTO NEGATIVE (NEGATIVE); RBC, URINE AUTO TNTC /HPF (0-3); SPECIFIC GRAVITY URINE AUTO 1.011 (1.002-1.035); SQUAMOUS EPITHELIAL CELL UR AU 1 /HPF (0-6); UROBILINOGEN, URINE AUTO 0.2 mg/dL (0.0-2.0); WBC, URINE AUTO 25 /HPF (0-3)
[2018-05-30 15:04] LABS: HEMATOCRIT 35.6 % (36.0-47.0); HEMOGLOBIN 11.6 g/dl (12.0-15.5)
[2018-05-30 15:38] LABS: CREATININE FOR GFR 1.72 MG/DL (0.55-1.30); GLOMERULAR FILTRATION RATE 30.2 (>32); MAGNESIUM LEVEL 1.8 MG/DL (1.8-2.4); POTASSIUM SERUM 4.1 MEQ/L (3.5-5.1)
[2018-05-30 16:00] VITALS: BP 114/53
--- NOTE | 2018-05-30 17:11 | REP ---
CT abdomen and pelvis without IV or oral contrast: History: Edema in the right abdomen. Redness and swelling. The patient is 7 days post right colon resection for ischemic necrosis. Elevated white blood cell count. Rule out abscess. Comparison CT study May 22, 2018. CT findings: Preliminary digital toe former stitchdowns radiograph demonstrates surgical sutures to the right of midline, a surgical drain in the right abdomen, and air distended loops of small bowel in the right lower quadrant. The transverse colon is dilated as well. A left hip prosthesis is noted. Axial CT images show small bilateral pleural effusions. There is subsegmental atelectasis in the lower lobes of the lungs bilaterally, right more so than left. The right pleural effusion appears a little larger than the left. Cardiomegaly is again observed. No focal hepatic lesion is seen. Spleen is unremarkable. No adrenal or pancreatic abnormalities observed. A feeding gastrostomy tube is noted in place terminating in the transverse segment of the duodenum. Large gallstones are visible in the gallbladder. The right surgical drain extends up along the lateral edge of the liver and terminates anterolaterally in front of the liver. There is some postoperative air in the anterior abdominal wall laterally on the right. This is adjacent to the drainage tube insertion. No intra-abdominal abscess collection is appreciated. Oral contrast is seen labeling the distal colon and distal small intestine. There are air-fluid levels and mild distension is seen in these loops consistent with ileus. No obstructive lesion is seen. Schmitz catheter is noted in the urinary bladder. No uterine or adnexal abnormality is seen. Impression: No intra-abdominal abscess seen. Postoperative changes. Cholelithiasis. Large left renal cyst again noted. Ileus pattern in the bowel gas. Bilateral pleural effusions. Electronically Signed by Dequan Bell MD 05/30/2018 05:34 P
[2018-05-30 20:00] VITALS: BP 109/60
[2018-05-30 20:07] LABS: HEMOGLOBIN 11.1 g/dl (12.0-15.5)
[2018-05-30 23:59] VITALS: BP 115/60
[2018-05-31] MEDS: SODIUM CHLORIDE 0.9% INJ 10 ML SYR IV SCH ×2 (00:51→18:00)
[2018-05-31 01:01] LABS: HEMATOCRIT 33.3 % (36.0-47.0); HEMOGLOBIN 10.8 g/dl (12.0-15.5)
[2018-05-31] MEDS: IPRATROPIUM 0.5MG/ALBUTEROL 2.5MG INH SOL UD 3ML (DUONEB)(J7620) NEB SCH ×4 (01:20→19:51)
[2018-05-31 04:00] VITALS: BP 120/60
[2018-05-31] MEDS: SLF 3 ML SYR IV SCH ×3 (05:57→21:12)
--- NOTE | 2018-05-31 07:49 | CR ---
DATE OF CONSULTATION: 05/30/2018 REQUESTING PHYSICIAN: Dr. Tesha Archuleta CONSULTING PHYSICIAN: Dr. Jernigan REASON FOR CONSULTATION: Management of acute renal failure. HISTORY OF PRESENT ILLNESS: Dea Henning is an 82-year-old female with a past medical history of near normal kidney function with a baseline creatinine of around 0.7 to 0.8 on admission. She was initially admitted to the hospital on May 23, 2018 with abdominal pain. She was found to have ischemic bowel. She underwent a laparotomy of the gangrenous right colon. She got a right colectomy done and a gastrostomy tube placement. She was being followed up by the medical team as well. Her postop course was complicated by atrial fibrillation with rapid ventricular response (RVR) and she also had decompensated congestive heart failure (CHF). She was diuresed by the medical team. Her creatinine suddenly bumped up from 1.06 to 2.3 today morning overnight. Nephrology service was called for further help in the management of this patient's acute renal failure and assessment of volume status. I saw and evaluated the patient today afternoon at the bedside. She was afebrile and hemodynamically stable. She had already gotten the Schmitz catheter placement before I saw her and I was told by the nursing staff that more than 1 liter of dark colored urine came out when she was catheterized. The patient is currently having clinical document improvement educator colored urine in the Schmitz catheter. PAST MEDICAL HISTORY: Near normal renal function. History of hypertension. Hyperlipidemia. PAST SURGICAL HISTORY: Recent right sided colectomy. Gastrostomy tube placement. ALLERGIES: No known drug allergies. FAMILY HISTORY: No significant family history of end stage renal disease requiring hemodialysis. SOCIAL HISTORY: No history of illicit drug abuse or alcohol abuse. REVIEW OF SYSTEMS: CONSTITUTIONAL: Patient reports feeling weak and tired. EYES: She denies any blurry vision or double vision. ENT: She denies any dysphagia or odynophagia. CARDIOVASCULAR: She denies any chest pain or palpitations, she does report lower extremity edema. RESPIRATORY: She does report mild shortness of breath. GASTROINTESTINAL (GI): She reports recent surgery. GENITOURINARY (): She has a Schmitz catheter now. MUSCULOSKELETAL: She denies any muscle aches and pains. BUTT WELDER: She denies any seizures or stroke. HEMATOLOGICAL/ONCOLOGIC: She denies any easy bleeding or bruising. ENDOCRINE: She denies any hypothyroidism or hyperthyroidism. All other review of systems is negative. PHYSICAL EXAMINATION: GENERAL: Patient is awake, alert and oriented times two, laying in bed. VITAL SIGNS: Temperature is 97.7 degrees Fahrenheit, blood pressure is 131/64, pulse 66, respiratory rate of 16, saturating 95% nasal cannula at 2 liters. HEAD/NECK: Extraocular muscles intact. Pupils equally round and reactive to light. Mucous membranes are slightly dry. Neck is supple. There is mildly elevated jugular venous distention (JVD). CARDIOVASCULAR: S1, S2. 2+ edema of the bilateral lower extremities. RESPIRATORY: Mildly decreased breath sounds at the bases. Decreased focal resonance at the bases. ABDOMEN: Moderately tender. She has midline surgical ashley. Left upper quadrant has PEG tube. Right lower quadrant has a Cristhian-Torres drain with serosanguineous discharge. GENITOURINARY (): Bladder is nonpalpable. She has a Schmitz catheter. Urine in the Schmitz is light yellow now. MUSCULOSKELETAL: No clubbing or cyanosis. 2+ edema of the bilateral upper extremities and 1+ edema of the lower extremities. BUTT WELDER: No focal deficit. Patient is able to communicate and she moves extremities. LYMPH NODES: No significant cervical, axillary or inguinal lymphadenopathy. LAB REVIEW: CBC showed a WBC of 17.8, hemoglobin is 11, platelets of 190. Urinalysis done today showed it was cloudy, 3+ blood, no protein, RBCs were too numerous to count. Urine random creatinine is 46.8, random sodium is 32, random potassium is 25.5 and chloride is 44. BMP done today morning showed sodium 139, potassium 4.5, chloride 110, bicarb 23, BUN 42, creatinine is 2.3, calcium is 6.9, magnesium is 2, proBNP was 5127, album is 1.7. IMAGING: A chest x-ray was done today morning, which showed bilateral effusions and cardiomegaly. PICC line was in position. CURRENT INPATIENT MEDICATIONS: The patient's medications were all reviewed by me and they include IV Cipro and Flagyl, which have been stopped. She has been started on meropenem 500 mg IV every 12 hours. She was started on IV fluid hydration, which I have stopped now because of high BNP and third spacing of fluid. She is on DuoNeb as needed. Reglan as needed. Metoprolol 50 mg by mouth twice a day. Zofran as needed. Protonix 40 mg IV daily. Phenergan as needed. ASSESSMENT: 82-year-old female with recent right sided colectomy, atrial flutter and acute renal failure. PLAN: 1. Acute renal failure. Clinically looking, the patient has a lot of third spacing of fluid. Although her mucous membranes are dry she does not appear to be dehydrated. I did urine electrolytes. Fractional excretion of sodium does not point towards prerenal cause. Given the patient's 1 liter urine output right after Schmitz catheter placement, most likely etiology of renal failure is urinary retention. Continue to monitor the urine output. No need of IV fluid hydration at this point. 2. Atrial fibrillation/atrial flutter. Okay to continue metoprolol at this point. Heart rate is controlled. Decision for anticoagulation is as per primary team or cardiology. 3. Recent ischemic bowel status post right sided colectomy. Patient is currently on IV antibiotics. Vital signs are within the acceptable range. She has extensive third spacing of the fluids, so I would avoiding giving her more fluids at this point. 4. Anasarca and bilateral pleural effusions. It is secondary to aggressive fluid hydration, secondary to sepsis and ischemic bowel. Once the patient's renal function improves, I would slowly start to diurese the patient. Thank you for involving me in the care of this patient, I shall be happy to follow the patient along with you tomorrow morning.
[2018-05-31 08:00] VITALS: BP 132/58
[2018-05-31 08:16] LABS: HEMATOCRIT 36.9 % (36.0-47.0); MEAN CORPUSCULAR HEMOGLOBIN 31.2 pg (27.0-33.0); MEAN CORPUSCULAR HGB CONC 32.5 g/dl (32.0-36.5); MEAN CORPUSCULAR VOLUME 95.8 fl (80.0-96.0); PLATELET COUNT, AUTOMATED 211 10^3/uL (150-450); RED BLOOD COUNT 3.85 10^6/uL (4.00-5.40); WHITE BLOOD COUNT 14.2 10^3/uL (4.0-10.0)
--- NOTE | 2018-05-31 08:18 | IPN ---
DATE: 05/31/2018 Mrs. Henning had a relatively good day yesterday. She had a Schmitz catheter placed that led to almost immediate evacuation about a liter of urine. She, from then on, continued to have good urine output. Her abdominal discomfort also improved some. Her CT of the abdomen did not reveal any acute pathology. She has not had any ventricular tachycardia yesterday, neither did she have atrial fibrillation. Relatively frequent ventricular ectopy sometimes in the form of ventricular bigemini persisted. This morning, she is alert and oriented and appropriate. She tells me that she is feeling a little bit better. She does admit that it is uncomfortable for her to sit and she has been resistant to rehabilitation from a physical point of view. She has a good appetite and her diarrhea is easing. Blood pressure 120/60, heart rate has been in the 60s and 70s, she is afebrile, saturation 96% on 2 liters. Fluid balance yesterday was recorded as -2300. Oral intake was recorded as only 930 mL. Weight is 85.4 kg which has further declined since yesterday. She is alert and oriented and appropriate. I do not appreciated jugular venous pulse (JVP) elevation. Lung exam is limited by very poor inspiratory effect. There are diminished breath sounds over both spaces. I do not appreciate crackles or wheezing. Heart exam reveals paradoxically splitting second heart sounds. No gallop, rub or murmur. Abdomen is soft. There is still diffuse tenderness but no rebound tenderness. Bowel sounds are present. Extremities are free of significant edema. LABORATORY: Hemoglobin this morning is 10.8 and hematocrit 33. Basic metabolic panel: Sodium 138, potassium 4.1, BUN 38, creatinine 1.7, glucose 156,000. ASSESSMENT/PLAN: Mrs. Henning is an 82-year-old female who has no prior history of coronary artery disease but is known to have chronic left bundle branch block. She presented with ischemic colon that lead to right hemicolectomy. In postoperative care, developed atrial fibrillation with rapid ventricular response. Eventually, her rhythm has stabilized and she has been in sinus rhythm now for more than 72 hours. She continues to have significant amount of ventricular ectopy even though she did not have any nonsustained VT yesterday. Echocardiogram revealed grossly preserved left ventricular systolic function. She was anticoagulated briefly but the anticoagulation was discontinued because she started having malik stools that were guaiac positive. There was no significant drop in her hemoglobin. At this point, will continue administration of metoprolol and will hold off anticoagulation until we can demonstrate that her stool remains guaiac negative. I do recommend though, that when she goes home, that she is anticoagulated at least for several months. It is quite possible that the initial presentation with ischemic colon and may have been embolic in nature. Further evaluation depend on her degree or recovery. At this point, she is virtually completely better but if she recovers good functional status, then she certainly will have to be evaluated for underlying coronary artery disease. I am going to sign off her care. Please call cardiology service back if there are any new problems. The plan and recommendations were discussed with the attending physician.
[2018-05-31 08:39] LABS: ALBUMIN 1.8 GM/DL (3.2-5.2); ALT/SGPT 18 U/L (12-78); BILIRUBIN,TOTAL 0.5 MG/DL (0.2-1.0); BLOOD UREA NITROGEN 23 MG/DL (7-18); CALCIUM LEVEL 7.6 MG/DL (8.8-10.2); CARBON DIOXIDE LEVEL 22 MEQ/L (21-32); CHLORIDE LEVEL 113 MEQ/L (98-107); CREATININE FOR GFR 0.81 MG/DL (0.55-1.30); GLOMERULAR FILTRATION RATE > 60.0 (>32); GLUCOSE, FASTING 142 MG/DL (70-100); PHOSPHORUS LEVEL 2.5 MG/DL (2.5-4.9); POTASSIUM SERUM 3.9 MEQ/L (3.5-5.1); SODIUM LEVEL 141 MEQ/L (136-145); TOTAL PROTEIN 4.6 GM/DL (6.4-8.2)
[2018-05-31] MEDS: METOPROLOL TART 50 MG TAB PO SCH ×2 (09:25→21:12)
[2018-05-31] MEDS: PANTOPRAZOLE 40MG INJ (PROTONIX) (C9113) IV SCH (09:26)
[2018-05-31] MEDS: SIMETHICONE 80 MG CHEW TAB PO SCH ×4 (09:27→21:11)
[2018-05-31 12:00] VITALS: BP 138/58
[2018-05-31] MEDS ORDERED: FUROSEMIDE 40 MG/4 ML VIAL (J1940) IV ONE (12:00)
[2018-05-31] MEDS: MEROPENEM INJ 500 MG in APPROPRIATE DILUENT 1 EA IV SCH (12:08)
--- NOTE | 2018-05-31 14:12 | IPN ---
DATE OF SERVICE: 05/31/2018 SUBJECTIVE: Patient was seen and examined at the bedside today morning. She is afebrile, hemodynamically stable. She had mild respiratory distress. Renal function is significantly better. Creatinine has come down to 0.81 today. Hemoglobin is also stable today morning. OBJECTIVE: VITAL SIGNS: Temperature is 97.6 degrees Fahrenheit, blood pressure is 132/58, pulse is 96, respiratory rate of 18, saturating 96% on nasal cannula at 2 liters. INTAKE AND OUTPUT: Urine output recorded as 2.4 liters yesterday, 500 mL so far today since overnight. Weight in the bed scale is 85.4 kg. PHYSICAL EXAM: GENERAL: Patient is awake, alert, and oriented times two, laying in bed. Mild respiratory distress. HEAD AND NECK EXAM: Extraocular muscles intact. Pupils equally round and reactive to light. Mucous membranes are moist. Neck is supple. Mildly elevated jugular venous distention (JVD). CARDIOVASCULAR: S1, S2, irregular rate. 1+ edema of the bilateral lower extremities and 1+ edema bilateral upper extremities. RESPIRATORY: Decreased breath sounds at the bases with mild inspiratory crackles bilaterally at the bases. ABDOMEN: Soft. She has midline surgical ashley, right-sided Cristhian-Torres (JOSIE) drain, and a percutaneous endoscopic gastrostomy (PEG) tube in the epigastrium. MUSCULOSKELETAL: 1+ edema on all extremities. Otherwise, no clubbing or cyanosis. JOINT CREASER: No focal deficit. Patient is able to communicate and she moves all extremities. LAB REVIEW: CBC showed a WBC 14.2, hemoglobin is 12, platelets are 211. BMP showed sodium 141, potassium 3.9, chloride 113, bicarbonate 22, BUN 23, creatinine is 0.8, calcium 7.6, phosphorous 2.5, albumin is 1.8. CURRENT INPATIENT MEDICATIONS: Patient's medications were all reviewed by me. She continues to be on intravenous (IV) meropenem. I have given her a dose of Lasix 40 mg IV times one dose. ASSESSMENT AND PLAN: 1. Acute renal failure. It was most likely secondary to urinary retention. She got the Schmitz catheter placed yesterday. Creatinine has improved back to baseline. It is okay to give her diuretic now. 2. Anasarca and bilateral pleural effusions. Patient's renal function has improved back to baseline. I have ordered one dose of Lasix 40 mg IV times one dose. 3. Atrial fibrillation/atrial flutter. Okay to continue metoprolol. Heart rate is controlled at this point. 4. Recent ischemic bowel surgery status post right-sided colectomy. Antibiotics are as per medical team. She is currently on meropenem 500 mg IV every 12 hourly.
[2018-05-31] MEDS: MORPHINE 4 MG/ML 1ML VIAL/SYRINGE (J2270) IV PRN ×2 (15:31→22:00)
[2018-05-31 16:00] VITALS: BP 117/57
[2018-05-31] MEDS ORDERED: FAT EMULSION IV 20% 500 ML IV SCH (18:00)
[2018-05-31] MEDS ORDERED: AMINO AC/ELECTROLYTE/DEX/CALC 2,000 ML IV SCH (18:00)
[2018-05-31] MEDS: HumaLOG INSULIN (NovoLOG) PER UNIT SC SCH (18:07)
[2018-05-31 20:00] VITALS: BP 148/58
[2018-05-31 23:59] VITALS: BP 133/66
[2018-06-01] VITALS (9 sets, daily range): BP systolic 120–162; BP diastolic 60–80
[2018-06-01] MEDS: IPRATROPIUM 0.5MG/ALBUTEROL 2.5MG INH SOL UD 3ML (DUONEB)(J7620) NEB SCH ×4 (00:17→20:16)
[2018-06-01] MEDS: HumaLOG INSULIN (NovoLOG) PER UNIT SC SCH ×5 (00:31→23:52)
[2018-06-01] MEDS: MEROPENEM INJ 500 MG in APPROPRIATE DILUENT 1 EA IV SCH ×3 (00:31→23:52)
[2018-06-01 05:14] LABS: BASO % 0.1 % (0.0-1.0); EOS # 0.2 10^3/uL (0.0-0.50); EOS % 1.5 % (0.0-3.0); HEMATOCRIT 34.4 % (36.0-47.0); HEMOGLOBIN 11.4 g/dl (12.0-15.5); LYMPH # 0.8 10^3/uL (1.5-4.5); LYMPH % 5.2 % (24.0-44.0); MEAN CORPUSCULAR HEMOGLOBIN 31.8 pg (27.0-33.0); MEAN CORPUSCULAR HGB CONC 33.1 g/dl (32.0-36.5); MEAN CORPUSCULAR VOLUME 95.8 fl (80.0-96.0); MONO # 0.8 10^3/uL (0.0-0.8); MONO % 5.1 % (0.0-5.0); NEUTROPHILS # 13.1 10^3/uL (1.8-7.7); NEUTROPHILS % 87.2 % (36.0-66.0); PLATELET COUNT, AUTOMATED 186 10^3/uL (150-450); RED BLOOD COUNT 3.59 10^6/uL (4.00-5.40)
[2018-06-01] MEDS: SLF 3 ML SYR IV SCH ×3 (05:39→20:40)
[2018-06-01] MEDS: SODIUM CHLORIDE 0.9% INJ 10 ML SYR IV SCH ×2 (05:39→17:24)
[2018-06-01 05:42] LABS: ALBUMIN 1.6 GM/DL (3.2-5.2); ALT/SGPT 22 U/L (12-78); BILIRUBIN,TOTAL 0.3 MG/DL (0.2-1.0); BLOOD UREA NITROGEN 17 MG/DL (7-18); CALCIUM LEVEL 7.3 MG/DL (8.8-10.2); CARBON DIOXIDE LEVEL 24 MEQ/L (21-32); CHLORIDE LEVEL 112 MEQ/L (98-107); CREATININE FOR GFR 0.57 MG/DL (0.55-1.30); GLOMERULAR FILTRATION RATE > 60.0 (>32); GLUCOSE, FASTING 138 MG/DL (70-100); MAGNESIUM LEVEL 1.4 MG/DL (1.8-2.4); SODIUM LEVEL 140 MEQ/L (136-145); TOTAL PROTEIN 5.1 GM/DL (6.4-8.2)
[2018-06-01 05:47] LABS: POTASSIUM SERUM 4.9 MEQ/L (3.5-5.1)
[2018-06-01] MEDS ORDERED: MAG SULF 1GM/100ML (MAG RUN) 1 GM in APPROPRIATE DILUENT 1 EA IV ONE ×2 (06:00→09:00)
[2018-06-01] MEDS: SODIUM CHLORIDE 0.9% INJ 10 ML SYR IV PRN ×3 (07:36→18:58)
--- NOTE | 2018-06-01 07:50 | IPN ---
DATE: 06/01/2018 Mrs. Henning unfortunately went into atrial fibrillation again. I already signed over care yesterday, but I was called by nursing staff again because she was tachycardic. She also developed a fair amount of premature ventricular contractions (PVCs) even though she did not have any nonsustained VT. Her magnesium level was low this morning and she just completed a magnesium run. Talking to the patient, she feels comfortable. She does not have any palpitations. She does not feel short of breath and denies any chest discomfort. She continues to have diarrhea, but it is improving. According to the nursing staff, the stools are no longer malik in color, but they were not testing for occult blood. Vital signs: Blood pressure 139/79, heart rate has been in the 100 to 120 range most of time, atrial fibrillation. She is afebrile, saturation 94% on 2 liters of oxygen via nasal cannula. Fluid balance was recorded as -1400 yesterday. Weight is documented at 82.9 kg. The patient is alert and oriented and appropriate, very hard of hearing so the communication is somewhat challenging. Jugular venous pulse (JVP) is difficult to assess due to her body habitus, but does not appear grossly enlarged. Lungs reveal clear lung johnson with limited air movement though due to poor inspiratory effort. I still appreciated diminished breath sounds over both bases. Heart exam irregularly irregular rhythm with rate around 110. I do not appreciate any gallop, murmur or rub. Abdomen is soft, still somewhat tender. Bowel sounds are present. Extremities are free of edema. LABORATORIES: CBC shows hemoglobin of 11.2, hematocrit 34.4, platelet count 186,000. Basic metabolic panel is essentially normal but for a glucose of 138. Albumin is 1.6. ASSESSMENT/PLAN: Mrs. Henning is an 82-year-old female who presented with ischemic colon and underwent emergent hemicolectomy with primary anastomosis. In the postoperative period, she developed atrial fibrillation with rapid ventricular response. She initially converted to sinus rhythm and was actually in sinus rhythm for three days, but unfortunately relapsed yesterday and her rate is still not well controlled. I am increasing the dose of metoprolol to 75 mg twice a day. Hopefully she will convert to sinus rhythm again within a short period of time. The more pressing issue from my perspective is anticoagulation. She was anticoagulated with Lovenox for two days, but then developed malik guaiac positive stools and the Lovenox was held. There has not been any significant drop in her hemoglobin, but she continues to have loose stools and her GI tract is still obviously healing. Please do reinstitute anticoagulation as soon as felt safe from a surgical perspective. I will sign off her care again. [facility] will be covering this weekend. JENNIFER
[2018-06-01] MEDS: SIMETHICONE 80 MG CHEW TAB PO SCH ×4 (08:14→20:33)
[2018-06-01] MEDS: PANTOPRAZOLE 40MG INJ (PROTONIX) (C9113) IV SCH (08:14)
[2018-06-01 08:38] LABS: C REACTIVE PROTEIN QUANTITATIV 3.08 MG/DL (0.00-0.30)
[2018-06-01] MEDS ORDERED: METOPROLOL TART 25 MG TABLET PO SCH (09:00)
[2018-06-01] MEDS ORDERED: FUROSEMIDE 40 MG/4 ML VIAL (J1940) IV ONE ×3 (09:00→18:00)
--- NOTE | 2018-06-01 12:22 | IPN ---
DATE: 05/31/2018 The patient seems to be doing quite well today, and tolerated clear liquids and overall is feeling better. Here white count has dropped to 14,000 from 17,000, and her urine output has been good. She has had some bowel movements. She has had no nausea. She has had no fevers or chills. Her Cristhian-Torres drain is still serosanguineous. She appears to be much more alert and awake, and less short of breath than she was yesterday. She has been afebrile. Vital signs are stable. Her white count as stated previously is 14,000. Her creatinine has come down to 0.8. On her physical exam, abdomen is less distended, nontender. No evidence of erythema, drainage or discharge is appreciated. She has a nicely healing midline wound. She has ashley intact. She has a gastrostomy tube that is intact. IMPRESSION/PLAN: The patient seems to be making some slow progress. We will increase her diet to a full liquid diet. We will increase her activity, have her start with some physical therapy and see how she does with this. From an overall standpoint, she is making good but slow progress and appears to probably have turned the corner on her improvement at this time. We will continue watching her white count and plan on progressing her diet as tolerated tomorrow.
--- NOTE | 2018-06-01 12:26 | IPN ---
DATE: 06/01/2018 The patient overall has been doing well on a full liquid diet since yesterday. However, she has had some diarrhea that has been problematic for her, which I am not surprised given the amount of bowel that we resected and the inflammatory component associated with this. I anticipate this should start to continue to improve over the next 24-48 hours. However, if it continues on for the next 24-48 hours, we may want to start her on something like Imodium or some constipating agents. We will have to see how she does first of all and make sure that she has continued to make some improvements. Otherwise, she has been afebrile. Her white count is persistently elevated at 15,000 today, and otherwise, her creatinine looks good. On her physical exam, her abdomen is soft, nondistended, nontender. No guarding. No rebound. No peritoneal signs are appreciated. Her Cristhian-Torres drain has serous drainage at this time. IMPRESSION/PLAN: The patient seems to be making some slow progress from a gastrointestinal (GI) standpoint, but still I think fluid standpoint issues need to be monitored and I would like to keep her Schmitz catheter in for right now, and tomorrow if she continues to make some good progress possibly getting out it tomorrow, but one of her major problems is that she has some incontinence of urine and thus following and being accurate with her intake and output is very difficult at this time. In any case, we will continue with supportive care and continue to progress her diet at this point.
--- NOTE | 2018-06-01 13:31 | IPNPDOC ---
Date Seen The patient was seen on 05/31/18. Progress Note SUBJECTIVE: Ms. Henning is a 82-year-old female who initially presented with ischemic colitis whose hospital course was complicated by atrial fibrillation. She was seen today resting in bed and she says that she is feeling better but she does reports that she is becoming more short of breath. She was originally laying flat in bed but when the head of the bed was raised she said her shortness of breath was lessened. She states she has some abdominal pain on the left side of her abdomen. She denies chest pain, n/v. Nursing reported no new overnight events. OBJECTIVE PHYSICAL EXAMINATION: VITAL SIGNS: Please see below. GENERAL: Drowsy, cooperative. Increased work of breathing and short answers when laying flat. Answering questions in full sentences when sat up in bed. HEENT: EOMI, atraumatic, supple, no JVD CARDIOVASCULAR: Regular rate, normal S1 and S2. Systolic ejection murmur heard at sternal border of 2nd intercostal space. No rubs or gallops RESPIRATORY: Decreased breath sounds at bilateral lung bases. No wheezes, rales, or rhonchi. ABDOMINAL: Midline incision is intact without drainage, nontender to palpation. Region on lower right flank that is erythematous, warm to touch, pitting, blanching, with a few areas of streaking. EXTREMITIES: No evidence of skin break down over her heels. No peripheral edema appreciated. LABORATORY DATA, IMAGING STUDIES, MICROBIOLOGY: Please see below. Echocardiogram 05/24/18--Dr. Fleming 1. Study is of very limited technical quality. 2. Normal left ventricle (LV) size. Probably normal or near normal LV systolic function based on very limited visualization. Septal wall motion abnormality likely related to underlying conductive system disease. 3. Unable to comment on the right ventricular systolic function. 4. Left atrial enlargement. 5. Aortic sclerosis with trivial stenosis. 6. No hemodynamically significant mitral valvular disease. 7. Mild mitral insufficiency. 8. Probably normal central venous pressure. 9. At least moderate pulmonary hypertension. DVT prophylaxis ordered?: TEDs and sequentials ASSESSMENT AND PLAN: This is an 82-year-old female who initially presented with ischemic colitis whose hospital course was complicated by atrial fibrillation. Atrial fibrillation with rapid ventricular response -Telemetry shows patient remains in sinus rhythm with PVCs -Rate control: metoprolol. -DC anticoagulation due to melanotic stools -Cardiology help is greatly appreciated. Melanotic stools - Remains asymptomatic - Currently hemodynamically stable. - d/c anticoagulation for now - trend H&H, hemoglobin stable. Will transfuse as needed if Hemoglobin <7 or actively bleeding. Acute renal failure: likely secondary to urinary retention 2/2 surgical procedure -Creatinine today returned to near baseline at .81 after spike yesterday to 2.34. -Schmitz catheter was placed and urine output increased -Continue to monitor urine output and BUN/Cr -Nephrology consulted. Appreciate their recommendations Urinary retention: likely 2/2 surgical procedure -Schmitz catheter was placed 05/30/18 -Urine output was significantly greater at 3230 ml -Continue to monitor urine output Anasarca and bilateral pleural effusions: likely 2/2 aggressive IV hydration, hypoalbuminemia, acute renal failure -Patient is reporting increasing SOB, orthopnea, and wet cough -Hypoalbuminemia. TPN nutrition will be started -d/c IV fluid hydration -Urinary catheter placed. Will monitor I&Os -Diuresis can be considered with improved renal function Diastolic CHF: possibly 2/2 tachyarrhythmia -PE: no peripheral edema, no JVD, lungs have diminished breath sounds but no crackles appreciated -CXR 05/30: cardiomegaly, bilateral pleural effusions -BNP: 5127 Leukocytosis: unsure if this reactive related to surgery vs an underlying infection -Leukocytosis decreased today. procalcitonin pending -CT abdomen 05/30: No intra-abdominal abscess seen. Postoperative changes. Cholelithiasis. Large left renal cyst again noted. Ileus pattern in the bowel gas. Bilateral pleural effusions. R/o intra abdominal source -Possible cellulitis source on R flank. Meropenem will cover possible gram positive skin infections, MRSA screen pending. -d/c metronidazole and cipro, meropenem started for broad coverage Ischemic colitis -Management as per general surgery Hypertension -c/w metoprolol tartrate 50mg PO BID. -Blood pressure is adequately controlled at this time. Hyperchloremic acidosis: secondary to IVF (resolving) Abnormal blood culture: x1 culture, likely contaminant -No growth on repeat cultures VS, I&O, 24H, Fishbone Vital Signs/I&O Vital Signs Date Time Temp Pulse Resp B/P (MAP) Pulse Ox O2 Delivery O2 Flow Rate FiO2 05/31/18 09:25 120 132/58 05/31/18 08:00 97.6 18 95 05/31/18 04:00 2.0 05/28/18 00:12 Nasal Cannula I&O- Last 24 Hours up to 6 AM 05/31/18 05:59 Intake Total 980 ml Output Total 3200 ml Balance -2220 ml Laboratory Data 24H LABS Laboratory Tests 2 05/30/18 13:52: Urine Appearance CLOUDYH, Urine Color YELLOW, Urine pH 5.0, Urine Specific Grav ity 1.011, Urine Protein NEGATIVE, Urine Glucose (UA) NEGATIVE, Urine Ketones NEGATIVE, Urine Urobilinogen 0.2, Urine Bilirubin NEGATIVE, Urine Leukocyte Esterase TRACEH, Urine Blood 3+H, Urine Nitrite NEGATIVE, Urine WBC (Auto) 25H, Urine RBC (Auto) TNTCH, Urine Hyaline Casts (Auto) 4, Urine Bacteria (Auto) 1+H, Urine Squamous Epithelial Cells 1, Urine Amorphous Sediment SMALLH, Urine Sperm (Auto) , Urine Random Creatinine 46.8, Urine Random Sodium 32, Urine Random Potassium 25.3, Urine Random Chloride 44 05/30/18 14:41: Anion Gap 6L, Glomerular Filtration Rate 30.2L, Blood Urea Nitrogen 38H, Creatinine 1.72H, Sodium Level 138, Potassium Level 4.1, Chloride Level 111H, Carbon Dioxide Level 21, Calcium Level 7.0L, Magnesium Level 1.8 05/31/18 04:54: 05/31/18 07:47: Nucleated Red Blood Cells % (auto) 0.0 05/31/18 07:48: Anion Gap 6L, Glomerular Filtration Rate > 60.0, Blood Urea Nitrogen 23H, Creatinine 0.81#, Sodium Level 141, Potassium Level 3.9, Chloride Level 113H, Carbon Dioxide Level 22, Calcium Level 7.6L, Phosphorus Level 2.5, Aspartate Amino Transf (AST/SGOT) 24, Alanine Aminotransferase (ALT/SGPT) 18, Alkaline P hosphatase 67, Total Bilirubin 0.5, Total Protein 4.6L, Albumin 1.8L, Albumin/Globulin Ratio 0.64L CBC/BMP Laboratory Tests 05/30/18 14:41 Calcium Level 7.0 L 05/30/18 14:43 05/30/18 19:47 05/31/18 00:56 05/31/18 07:47 Red Blood Count 3.85 L, Mean Corpuscular Volume 95.8, Mean Corpuscular Hemoglobin 31.2, Mean Corpuscular Hemoglobin Concent 32.5, Red Cell Distribution Width 15.2 H 05/31/18 07:48 Calcium Level 7.6 L, Phosphorus Level 2.5, Aspartate Amino Transf (AST/SGOT) 24, Alanine Aminotransferase (ALT/SGPT) 18, Alkaline Phosphatase 67, Total Bilirubin 0.5, Total Protein 4.6 L, Albumin 1.8 L Microbiology Microbiology 05/26/18 Blood Culture - Preliminary, Resulted No Growth after 72 hours. All specime... 05/26/18 Blood Culture - Preliminary, Resulted No Growth after 72 hours. All specime... 05/25/18 Blood Culture - Final, Complete NO GROWTH AFTER 5 DAYS 05/22/18 Blood Culture - Final, Complete Staphylococcus Warneri 05/22/18 Blood Culture - Final, Complete NO GROWTH AFTER 5 DAYS 05/29/18 Stool Occult Blood (BEN) - Final, Complete GME ATTESTATION GME ATTESTATION My faculty preceptor for this patient encounter was physically present during the encounter and was fully available. All aspects of the patient interview, examination, medical decision making process, and medical care plan development were reviewed and approved by the faculty preceptor. The faculty preceptor is aware and concurs with the plan as stated in the body of this note and will attest to such by his/her cosignature. ATTENDING NOTE I, Tesha Archuleta, have both independently examined this patient as well as r eviewed the documentation. I have discussed in detail with the resident the findings and plan of treatment as documented in the residents documentation. I will continue to follow the patient and offer further guidance to the patients care as necessary during this hospital stay. JAYDON L[address]-III May 31, 2018 11:45 TESHA ARCHULETA MD Jun 04, 2018 16:00
--- NOTE | 2018-06-01 13:59 | IPN ---
DATE OF SERVICE: 06/01/2018 SUBJECTIVE: Patient was seen and examined at the bedside today morning. She has been started on total parenteral nutrition (TPN) now. Her renal function is improving. Creatinine is down to 0.5. She has a very good urine output. Electrolyte levels are within the acceptable range. OBJECTIVE: VITAL SIGNS: Temperature is 99.2 degrees Fahrenheit, blood pressure 129/69, pulse is 99, respiratory rate of 20, saturating 94% on 2 liters nasal cannula. INTAKE AND OUTPUT: Urine output recorded as 2.5 liters yesterday, 475 mL so far today since overnight. Weight in the bed scale is 82.9 kg. PHYSICAL EXAM: GENERAL: Patient is awake, alert, and oriented times three, lying in bed, no apparent distress. HEAD AND NECK EXAM: Extraocular muscles intact. Pupils equally round and reactive to light. Mucous membranes are moist. Neck is supple. There is mildly elevated jugular venous distention (JVD). CARDIOVASCULAR: S1, S2, irregular rate. 1+ edema of the bilateral lower extremities and bilateral upper extremities. RESPIRATORY: Mildly decreased breath sounds at the bases with inspiratory crackles bilaterally at the bases. ABDOMEN: Soft. She has midline surgical ashley, Cristhian-Trores (JOSIE) drain on the right side, and a percutaneous endoscopic gastrostomy (PEG) tube in the epigastrium. MUSCULOSKELETAL: 1+ edema of all extremities, otherwise, no clubbing or cyanosis. INDUSTRI[employer] ILLUMINATING ENGINEER: No focal deficit. She is able to move all extremities. LAB REVIEW: CBC showed a WBC 15.4, hemoglobin is 11.4, platelets are 186. BMP showed sodium 140, potassium 4.9, chloride 112, bicarbonate 24, BUN 17, creatinine is 0.5, calcium is 7.3, magnesium is 1.4, albumin 1.6. CURRENT INPATIENT MEDICATIONS: Patient's medications were all reviewed by me. She has been started on intravenous (IV) TPN. She was also given a dose of IV magnesium sulfate 1 gram. She was given a dose of furosemide 40 mg IV times one dose. ASSESSMENT AND PLAN: 1. Acute renal failure. It was secondary to urinary retention. She responded very well to Schmitz catheter placement, and she is actually diuresing very well with the IV diuretics now. 2. Anasarca and bilateral pleural effusions. Patient was given 40 mg of IV Lasix, and I was told that she is 1.2 liters negative since today morning, so I have changed the second dose of Lasix to today evening. Patient will need daily doses of Lasix because she is on TPN now as well. 3. Atrial fibrillation/atrial flutter. It is being monitored by cardiology. She is currently on metoprolol. Dose was increased by cardiology. Heart rate is getting better with improvement of the volume status as well. 4. Hypomagnesemia. Patient was already given magnesium sulfate 1 gram IV. The rest of the magnesium should be managed with the TPN now. Patient's renal function has improved back to baseline. Nephrology service is going to sign off. As needed diuretics can be given by the primary medical team now.
[2018-06-01] MEDS ORDERED: ENOXAPARIN 100MG/1ML SYRINGE (J1650) SC ONE (14:30)
[2018-06-01] MEDS ORDERED: ENOXAPARIN 80 MG/0.8 ML SYRINGE (J1650) SC ONE (14:30)
--- NOTE | 2018-06-01 14:45 | IPNPDOC ---
Date Seen The patient was seen on 06/01/18. Progress Note SUBJECTIVE: Ms. Henning is a 82-year-old female who initially presented with ischemic colitis whose hospital course was complicated by atrial fibrillation. She was seen today sitting up in bed. She appears more responsive and comfortable and reports that she is feeling better today. She denies shortness of breath and cough. She has no n/v, some abdominal pain in LLQ and LUQ. It was reported to cardiology that overnight she went into AFib again. OBJECTIVE PHYSICAL EXAMINATION: VITAL SIGNS: Please see below. GENERAL: Alert, cooperative, talking in full sentences. HEENT: EOMI, atraumatic, supple, no JVD CARDIOVASCULAR: Tachycardic, normal S1 and S2. Systolic ejection murmur heard at sternal border of 2nd intercostal space. No rubs or gallops RESPIRATORY: Decreased breath sounds at bilateral lung bases. No wheezes, rales, or rhonchi. ABDOMINAL: Midline incision is intact without drainage, soft, nontender to palpation, positive bowel sounds EXTREMITIES: No evidence of skin break down over her heels. No peripheral edema appreciated. LABORATORY DATA, IMAGING STUDIES, MICROBIOLOGY: Please see below. Echocardiogram 05/24/18--Dr. Fleming 1. Study is of very limited technical quality. 2. Normal left ventricle (LV) size. Probably normal or near normal LV systolic function based on very limited visualization. Septal wall motion abnormality likely related to underlying conductive system disease. 3. Unable to comment on the right ventricular systolic function. 4. Left atrial enlargement. 5. Aortic sclerosis with trivial stenosis. 6. No hemodynamically significant mitral valvular disease. 7. Mild mitral insufficiency. 8. Probably normal central venous pressure. 9. At least moderate pulmonary hypertension. DVT prophylaxis ordered?: TEDs and sequentials ASSESSMENT AND PLAN: This is an 82-year-old female who initially presented with ischemic colitis whose hospital course was complicated by atrial fibrillation. Atrial fibrillation with rapid ventricular response -Patient went back into AFib overnight with frequent PVCs -Rate control: metoprolol dose increased to 75 mg PO daily. -ChADS VASc: minimum of 5. -Lovenox restarted at 1 mg/kg q12h. H/H stable, will monitor for melanotic stool. -Cardiology help is greatly appreciated. Anasarca and bilateral pleural effusions: likely 2/2 aggressive IV hydration, hypoalbuminemia, acute renal failure -Patient is reporting decreased SOB and cough -Hypoalbuminemia. TPN nutrition started. -d/c IV fluid hydration -Urinary catheter placed. Will monitor I&Os -40 mg IV lasix daily -Nephrology consulted. Appreciate their recommendations Leukocytosis: unsure if this is reactive related to surgery vs an underlying infection -Patient remains afebrile -Persistent leukocytosis and elevated CRP, procalcitonin .23. Will continue to trend. -CT abdomen 05/30: No intra-abdominal abscess seen, postoperative changes, cholelithiasis, large left renal cyst again noted, ileus pattern in the bowel gas. Unlikely intra abdominal source. -CXR 05/30: pleural effusions and cardiomegaly. Unlikely pulmonary source. -Liquid brown stools are being reported. c.diff PCR ordered. -Meropenem started for broad coverage. Ischemic colitis -Management as per general surgery Diastolic CHF: possibly 2/2 tachyarrhythmia -PE: no peripheral edema, no JVD, lungs have diminished breath sounds but no crackles appreciated -CXR 05/30: cardiomegaly, bilateral pleural effusions Hypertension -c/w metoprolol -Blood pressure is adequately controlled at this time. Acute renal failure: likely secondary to urinary retention 2/2 surgical procedure (resolved) -Creatinine returned to baseline when roman placed -Continue to monitor urine output and BUN/Cr Urinary retention: likely 2/2 surgical procedure (resolved) -Continue to monitor urine output Melanotic stools (resolved) - Remains asymptomatic - Currently hemodynamically stable. - trend H&H, hemoglobin stable. Hyperchloremic acidosis: secondary to IVF (resolved) Abnormal blood culture: x1 culture, likely contaminant (resolved) -No growth on repeat cultures VS, I&O, 24H, Fishbone Vital Signs/I&O Vital Signs Date Time Temp Pulse Resp B/P (MAP) Pulse Ox O2 Delivery O2 Flow Rate FiO2 06/01/18 11:54 99.2 99 20 129/69 (89) 94 2.0 05/28/18 00:12 Nasal Cannula I&O- Last 24 Hours up to 6 AM 06/01/18 06:00 Intake Total 1560 ml Output Total 2675 ml Balance -1115 ml Laboratory Data 24H LABS Laboratory Tests 2 05/31/18 17:31: Bedside Glucose (Misc Panel) 166H 06/01/18 00:01: Bedside Glucose (Misc Panel) 181H 06/01/18 04:46: Immature Granulocyte % (Auto) 0.9, White Blood Count 15.0H, Red Blood Count 3.59L, Hemoglobin 11.4L, Hematocrit 34.4L, Mean Corpuscular Volume 95.8, Mean Corpuscular Hemoglobin 31.8, Mean Corpuscular Hemoglobin Concent 33.1, Red Cell Distribution Width 15.3H, Platelet Count 186, Neutrophils (%) (Auto) 87.2H, Lymphocytes (%) (Auto) 5.2L, Monocytes (%) (Auto) 5.1H, Eosinophils (%) (Auto) 1.5, Basophils (%) (Auto) 0.1, Neutrophils # (Auto) 13.1H, Lymphocytes # (Auto) 0.8L, Monocytes # (Auto) 0.8, Eosinophils # (Auto) 0.2, Basophils # (Auto) 0.0, Nucleated Red Blood Cells % (auto) 0.0, Anion Gap 4L, Glomerular Filtration Rate > 60.0, Blood Urea Nitrogen 17, Creatinine 0.57, Sodium Level 140, Potassium Level 4.9#, Chloride Level 112H, Carbon Dioxide Level 24, Calcium Level 7.3L, Aspartate Amino Transf (AST/SGOT) 74H, Alanine Aminotransferase (ALT/SGPT) 22, Alkaline Phosphatase 70, Total Bilirubin 0.3, Total Protein 5.1L, Albumin 1.6L, Magnesium Level 1.4L, C-Reactive Protein, Quantitative 3.08H, Albumin/Globulin Ratio 0.46L 06/01/18 05:21: Bedside Glucose (Misc Panel) 133H 06/01/18 12:17: Bedside Glucose (Misc Panel) 219H CBC/BMP Laboratory Tests 06/01/18 04:46 Red Blood Count 3.59 L, Mean Corpuscular Volume 95.8, Mean Corpuscular Hemoglobin 31.8, Mean Corpuscular Hemoglobin Concent 33.1, Red Cell Distribution Width 15.3 H, Neutrophils (%) (Auto) 87.2 H, Lymphocytes (%) (Auto) 5.2 L, Monocytes (%) (Auto) 5.1 H, Eosinophils (%) (Auto) 1.5, Basophils (%) (Auto) 0.1, Neutrophils # (Auto) 13.1 H, Lymphocytes # (Auto) 0.8 L, Monocytes # (Auto) 0.8, Eosinophils # (Auto) 0.2, Basophils # (Auto) 0.0, Calcium Level 7.3 L, Aspartate Amino Transf (AST/SGOT) 74 H, Alanine Aminotransferase (ALT/SGPT) 22, Alkaline Phosphatase 70, Total Bilirubin 0.3, Total Protein 5.1 L, Albumin 1.6 L Microbiology Microbiology 05/26/18 Blood Culture - Final, Complete NO GROWTH AFTER 5 DAYS 05/26/18 Blood Culture - Final, Complete NO GROWTH AFTER 5 DAYS 05/25/18 Blood Culture - Final, Complete NO GROWTH AFTER 5 DAYS 05/22/18 Blood Culture - Final, Complete Staphylococcus Warneri 05/22/18 Blood Culture - Final, Complete NO GROWTH AFTER 5 DAYS 05/29/18 Stool Occult Blood (BEN) - Final, Complete 05/31/18 MRSA Screen, Received Pending GME ATTESTATION GME ATTESTATION My faculty preceptor for this patient encounter was physically present during the encounter and was fully available. All aspects of the patient interview, examination, medical decision making process, and medical care plan development were reviewed and approved by the faculty preceptor. The faculty preceptor is aware and concurs with the plan as stated in the body of this note and will att est to such by his/her cosignature. ATTENDING NOTE I, Tesha Archuleta, have both independently examined this patient as well as reviewed the documentation. I have discussed in detail with the resident the findings and plan of treatment as documented in the residents documentation. I will continue to follow the patient and offer further guidance to the patients care as necessary during this hospital stay. JAYDON LANE S-III Jun 01, 2018 14:43 TESHA ARCHULETA MD Jun 01, 2018 17:31
[2018-06-01 16:15] LABS: URIC ACID 5.8 MG/DL (2.6-6.0)
[2018-06-01] MEDS ORDERED: FAT EMULSION IV 20% 500 ML IV SCH (18:00)
[2018-06-01] MEDS ORDERED: MULTIVITAMIN -ADULT INJECTION 10 ML, CR/CU/SE/MN/ZN INJ 1 ML in AMINO AC/ELECTROLYTE/DE... IV SCH (18:00)
[2018-06-01] MEDS: ONDANSETRON 4MG/2ML VIAL (J2405) IV PRN (18:58)
[2018-06-01] MEDS: ENOXAPARIN 80 MG/0.8 ML SYRINGE (J1650) SC SCH (20:35)
[2018-06-01] MEDS: ACETAMINOPHEN TAB 650MG DOSE (2X325MG) PO PRN (20:35)
[2018-06-01] MEDS: METOPROLOL TART 25 MG TABLET PO SCH (20:35)
[2018-06-02] MEDS: IPRATROPIUM 0.5MG/ALBUTEROL 2.5MG INH SOL UD 3ML (DUONEB)(J7620) NEB SCH ×4 (02:00→20:15)
[2018-06-02 04:00] VITALS: BP_SYST 112; BP_SYST 114; BP_DIAS 58; BP_DIAS 65
[2018-06-02 05:49] LABS: BASO % 0.1 % (0.0-1.0); EOS # 0.2 10^3/uL (0.0-0.50); EOS % 1.4 % (0.0-3.0); HEMATOCRIT 33.4 % (36.0-47.0); HEMOGLOBIN 10.8 g/dl (12.0-15.5); LYMPH # 0.8 10^3/uL (1.5-4.5); LYMPH % 5.9 % (24.0-44.0); MEAN CORPUSCULAR HEMOGLOBIN 30.9 pg (27.0-33.0); MEAN CORPUSCULAR HGB CONC 32.3 g/dl (32.0-36.5); MEAN CORPUSCULAR VOLUME 95.7 fl (80.0-96.0); MONO # 0.7 10^3/uL (0.0-0.8); MONO % 5.5 % (0.0-5.0); NEUTROPHILS # 11.5 10^3/uL (1.8-7.7); NEUTROPHILS % 86.2 % (36.0-66.0); PLATELET COUNT, AUTOMATED 169 10^3/uL (150-450); RED BLOOD COUNT 3.49 10^6/uL (4.00-5.40); WHITE BLOOD COUNT 13.4 10^3/uL (4.0-10.0)
[2018-06-02] MEDS: SLF 3 ML SYR IV SCH ×3 (06:00→21:01)
[2018-06-02] MEDS: SODIUM CHLORIDE 0.9% INJ 10 ML SYR IV SCH ×2 (06:10→17:37)
[2018-06-02 06:20] LABS: ALBUMIN 1.6 GM/DL (3.2-5.2); ALT/SGPT 19 U/L (12-78); BILIRUBIN,TOTAL 0.3 MG/DL (0.2-1.0); BLOOD UREA NITROGEN 17 MG/DL (7-18); C REACTIVE PROTEIN QUANTITATIV 5.24 MG/DL (0.00-0.30); CALCIUM LEVEL 7.1 MG/DL (8.8-10.2); CARBON DIOXIDE LEVEL 27 MEQ/L (21-32); CHLORIDE LEVEL 105 MEQ/L (98-107); CREATININE FOR GFR 0.59 MG/DL (0.55-1.30); GLOMERULAR FILTRATION RATE > 60.0 (>32); GLUCOSE, FASTING 182 MG/DL (70-100); MAGNESIUM LEVEL 1.5 MG/DL (1.8-2.4); POTASSIUM SERUM 3.1 MEQ/L (3.5-5.1); SODIUM LEVEL 140 MEQ/L (136-145); TOTAL PROTEIN 4.9 GM/DL (6.4-8.2)
[2018-06-02] MEDS: HumaLOG INSULIN (NovoLOG) PER UNIT SC SCH ×2 (06:30→12:08)
[2018-06-02 07:38] VITALS: BP 142/65
[2018-06-02] MEDS ORDERED: MAG SULF 1GM/100ML (MAG RUN) 1 GM in APPROPRIATE DILUENT 1 EA IV SCH (09:00)
[2018-06-02] MEDS: KCL 10MEQ/100ML SWI (KRUN) 10 MEQ in APPROPRIATE DILUENT 1 EA IV SCH ×2 (09:16→10:33)
[2018-06-02] MEDS: ENOXAPARIN 80 MG/0.8 ML SYRINGE (J1650) SC SCH ×2 (09:17→20:59)
[2018-06-02] MEDS: PANTOPRAZOLE 40MG INJ (PROTONIX) (C9113) IV SCH (09:17)
[2018-06-02] MEDS: SIMETHICONE 80 MG CHEW TAB PO SCH ×4 (09:18→21:00)
[2018-06-02] MEDS: METOPROLOL TART 25 MG TABLET PO SCH ×2 (09:18→21:01)
--- NOTE | 2018-06-02 09:42 | IPN ---
DATE: 06/02/2018 The patient overall has been doing better and has been tolerating regular diet. She has not had any nausea. No vomiting. States that overall her diarrhea is better than it was previously. She is status post extended right colectomy to the transverse colon because of ischemic right colon and since the operation has been doing relatively well at this point. She did have an elevated white count and it has been slowly trending down at this point and she has been afebrile. Her abdomen is soft, nontender and nondistended. Her Cristhian-Torres drain still is serosanguineous and the output is still a significant amount at this time. Her creatinine has come back down to normal and she continues to receive intermittent diuresis. On physical exam, otherwise her abdomen is soft, nontender and nondistended. She still has some edema throughout her abdominal wall, though it is less than it was previously. She had significant pitting the edema on the lateral abdominal wall and this is slowly improving and getting better, but is still significant. IMPRESSION AND PLAN: The patient's GI tract seems to be doing well at this point and continuing on a regular diet is reasonable. Will stop her TPN/Do Not Reorder today. Second, we will encourage her activity. Unfortunately, I do feel that with her frail nature that she will probably be one that needs to go to rehab and given how frail she is I would not be surprised if she needs to go to subacute rehabilitation. Fortunately, most of the GI general surgical issues seem to be resolving at this point. I would recommend continuing with medical issues. I do feel that if she tolerates a regular diet again for another 24 hours and her hematocrit is stable that she can be converted over to a by mouth form of anticoagulation.
[2018-06-02 11:46] VITALS: BP 123/58
[2018-06-02] MEDS ORDERED: POTASSIUM CHLORIDE 10% LIQ 20 MEQ/15 ML UDC PO ONE (12:00)
[2018-06-02] MEDS: MEROPENEM INJ 500 MG in APPROPRIATE DILUENT 1 EA IV SCH (12:08)
[2018-06-02] MEDS ORDERED: FUROSEMIDE 40 MG/4 ML VIAL (J1940) IV ONE (13:00)
[2018-06-02] MEDS: MAG SULF 1GM/100ML (MAG RUN) 1 GM in APPROPRIATE DILUENT 1 EA IV SCH ×2 (13:58→15:26)
--- NOTE | 2018-06-02 15:44 | IPNPDOC ---
Date Seen The patient was seen on 06/02/18. Progress Note SUBJECTIVE: Ms. Henning is a 82-year-old female who initially presented with ischemic colitis whose hospital course was complicated by atrial fibrillation. She was seen today sitting up in bed. She is a very pleasant mood this morning. She states she's feeling much better. She does not have any complaints this morning. She is tolerating her meals with no problem. She's had a bowel movement with no consultations no bloody stools since Lovenox therapeutic dose was started yesterday. Her heart rate has been almost rate controlled but she still in the low 100s in the evening. Her metoprolol dose was adjusted to 100 mg BID last night. Has been tolerating this better. She has a good urine output with like to get out of bed and she is willing to work with PT. No other overnight events reported. OBJECTIVE PHYSICAL EXAMINATION: VITAL SIGNS: Please see below. GENERAL: Alert, cooperative, talking in full sentences. HEENT: EOMI, atraumatic, supple, no JVD CARDIOVASCULAR: Irregularly irregular rate controlled, Systolic ejection murmur heard at sternal border of 2nd intercostal space. No rubs or gallops RESPIRATORY: Decreased breath sounds at bilateral lung bases. No wheezes, rales, or rhonchi. ABDOMINAL: Midline incision is intact without drainage, soft, nontender to palpation, positive bowel sounds EXTREMITIES: No evidence of skin break down over her heels. 1+ pitting edema up to ankle bilaterally. No calf tenderness LABORATORY DATA, IMAGING STUDIES, MICROBIOLOGY: Please see below. Echocardiogram 05/24/18--Dr. Fleming 1. Study is of very limited technical quality. 2. Normal left ventricle (LV) size. Probably normal or near normal LV systolic function based on very limited visualization. Septal wall motion abnormality likely related to underlying conductive system disease. 3. Unable to comment on the right ventricular systolic function. 4. Left atrial enlargement. 5. Aortic sclerosis with trivial stenosis. 6. No hemodynamically significant mitral valvular disease. 7. Mild mitral insufficiency. 8. Probably normal central venous pressure. 9. At least moderate pulmonary hypertension. DVT prophylaxis ordered?: therapeutic Lovenox ASSESSMENT AND PLAN: This is an 82-year-old female who initially presented with ischemic colitis whose hospital course was complicated by atrial fibrillation. Atrial fibrillation with rapid ventricular response -c/w metoprolol dose 100 mg PO BID. -ChADS VASc: minimum of 5. -c/w therapeutic Lovenox -H/H stable, will monitor for melanotic stool. -Cardiology consulted Anasarca and bilateral pleural effusions: likely 2/2 aggressive IV hydration, hypoalbuminemia, acute renal failure -Patient is reporting decreased SOB and cough -Urinary catheter to monitor I&Os -40 mg IV lasix will be added on daily based on clinical picture -Once euvolemic can consider discontinuing urinary catheter Leukocytosis: unsure if this is reactive related to surgery vs an underlying infection (improving) -Patient remains afebrile -CT abdomen 05/30: No intra-abdominal abscess seen, postoperative changes, cholelithiasis, large left renal cyst again noted, ileus pattern in the bowel gas. Unlikely intra abdominal source. -CXR 05/30: pleural effusions and cardiomegaly. Unlikely pulmonary source. -Liquid brown stools are being reported. C.diff PCR repeat pending -Meropenem - for broad coverage Ischemic colitis possibly secondary to thrombotic emboli from undiagnosed paroxysmal A. fib -Management as per general surgery -Lovenox restarted Diastolic CHF: possibly 2/2 tachyarrhythmia -PE: 2+ peripheral edema, no JVD, lungs have diminished breath sounds but no crackles appreciated -CXR 05/30: cardiomegaly, bilateral pleural effusions -Continue 40 mg IV lasix daily prn based on clinical picture Hypertension -c/w metoprolol -Blood pressure is adequately controlled at this time. Acute renal failure: likely secondary to urinary retention 2/2 surgical procedure (resolved) -Creatinine returned to baseline when roman placed -Continue to monitor Abnormal blood culture: x1 culture, likely contaminant (resolved) -No growth on repeat cultures Diet -Low residue diet discontinue TPN after completing bag today PT/OT -Recommend ONLY to continued rehab DVT ppx: therapeutic Lovenox VS, I&O, 24H, Fishbone Vital Signs/I&O Vital Signs Date Time Temp Pulse Resp B/P (MAP) Pulse Ox O2 Delivery O2 Flow Rate FiO2 06/02/18 11:46 97.5 89 18 123/58 (79) 97 2.0 05/28/18 00:12 Nasal Cannula I&O- Last 24 Hours up to 6 AM 06/02/18 06:00 Intake Total 2410 ml Output Total 4005 ml Balance -1595 ml Laboratory Data 24H LABS Laboratory Tests 2 06/01/18 16:27: Bedside Glucose (Misc Panel) 190H 06/01/18 23:41: Bedside Glucose (Misc Panel) 220H 06/02/18 05:20: Immature Granulocyte % (Auto) 0.9, White Blood Count 13.4H, Red Blood Count 3.49L, Hemoglobin 10.8L, Hematocrit 33.4L, Mean Corpuscular Volume 95.7, Mean Corpuscular Hemoglobin 30.9, Mean Corpuscular Hemoglobin Concent 32.3, Red Cell Distribution Width 15.2H, Platelet Count 169, Neutrophils (%) (Auto) 86.2H, Lymphocytes (%) (Auto) 5.9L, Monocytes (%) (Auto) 5.5H, Eosinophils (%) (Auto) 1.4, Basophils (%) (Auto) 0.1, Neutrophils # (Auto) 11.5H, Lymphocytes # (Auto) 0.8L, Monocytes # (Auto) 0.7, Eosinophils # (Auto) 0.2, Basophils # (Auto) 0.0, Nucleated Red Blood Cells % (auto) 0.0, Anion Gap 8, Glomerular Filtration Rate > 60.0, Blood Urea Nitrogen 17, Creatinine 0.59, Sodium Level 140, Potassium Level 3.1#L, Chloride Level 105, Carbon Dioxide Level 27, Calcium Level 7.1L, Aspartate Amino Transf (AST/SGOT) 26, Alanine Aminotransferase (ALT/SGPT) 19, Alkaline Phosphatase 77, Total Bilirubin 0.3, Total Protein 4.9L, Albumin 1.6L, Magnesium Level 1.5L, C-Reactive Protein, Quantitative 5.24H, Albumin/Globulin Ratio 0.48L 06/02/18 11:39: Bedside Glucose (Misc Panel) 229H CBC/BMP Laboratory Tests 06/02/18 05:20 Red Blood Count 3.49 L, Mean Corpuscular Volume 95.7, Mean Corpuscular Hemoglobin 30.9, Mean Corpuscular Hemoglobin Concent 32.3, Red Cell Distribution Width 15.2 H, Neutrophils (%) (Auto) 86.2 H, Lymphocytes (%) (Auto) 5.9 L, Monocytes (%) (Auto) 5.5 H, Eosinophils (%) (Auto) 1.4, Basophils (%) (Auto) 0.1, Neutrophils # (Auto) 11.5 H, Lymphocytes # (Auto) 0.8 L, Monocytes # (Auto) 0.7, Eosinophils # (Auto) 0.2, Basophils # (Auto) 0.0, Calcium Level 7.1 L, Aspartate Amino Transf (AST/SGOT) 26, Alanine Aminotransferase (ALT/SGPT) 19, Alkaline Phosphatase 77, Total Bilirubin 0.3, Total Protein 4.9 L, Albumin 1.6 L Microbiology Microbiology 05/26/18 Blood Culture - Final, Complete NO GROWTH AFTER 5 DAYS 05/26/18 Blood Culture - Final, Complete NO GROWTH AFTER 5 DAYS 05/25/18 Blood Culture - Final, Complete NO GROWTH AFTER 5 DAYS 05/29/18 Stool Occult Blood (BEN) - Final, Complete 05/31/18 MRSA Screen - Final, Complete GME ATTESTATION GME ATTESTATION My faculty preceptor for this patient encounter was physically present during the encounter and was fully available. All aspects of the patient interview, examination, medical decision making process, and medical care plan development were reviewed and approved by the faculty preceptor. The faculty preceptor is aware and concurs with the plan as stated in the body of this note and will attest to such by his/her cosignature. ATTENDING NOTE I, Tesha Archuleta, have both independently examined this patient as well as reviewed the documentation. I have discussed in detail with the resident the findings and plan of treatment as documented in the residents documentation. I will continue to follow the patient and offer further guidance to the patients care as necessary during this hospital stay. MALCOM ALLEN DO Jun 02, 2018 15:44 TESHA ARCHULETA MD Jun 02, 2018 17:21
[2018-06-02 16:00] VITALS: BP 111/58
[2018-06-02 20:53] VITALS: BP 104/64
[2018-06-02] MEDS: ACETAMINOPHEN TAB 650MG DOSE (2X325MG) PO PRN (20:59)
[2018-06-03] VITALS (7 sets, daily range): BP systolic 103–119; BP diastolic 54–64
[2018-06-03] MEDS: MEROPENEM INJ 500 MG in APPROPRIATE DILUENT 1 EA IV SCH ×3 (00:06→23:55)
[2018-06-03] MEDS: IPRATROPIUM 0.5MG/ALBUTEROL 2.5MG INH SOL UD 3ML (DUONEB)(J7620) NEB SCH ×4 (01:59→19:47)
[2018-06-03] MEDS: SLF 3 ML SYR IV SCH ×3 (05:37→22:00)
[2018-06-03] MEDS: SODIUM CHLORIDE 0.9% INJ 10 ML SYR IV SCH ×2 (05:37→17:53)
[2018-06-03 05:48] LABS: BASO % 0.2 % (0.0-1.0); EOS # 0.1 10^3/uL (0.0-0.50); EOS % 1.1 % (0.0-3.0); HEMATOCRIT 32.2 % (36.0-47.0); HEMOGLOBIN 10.4 g/dl (12.0-15.5); LYMPH # 0.9 10^3/uL (1.5-4.5); LYMPH % 8.9 % (24.0-44.0); MEAN CORPUSCULAR HEMOGLOBIN 30.8 pg (27.0-33.0); MEAN CORPUSCULAR HGB CONC 32.3 g/dl (32.0-36.5); MEAN CORPUSCULAR VOLUME 95.3 fl (80.0-96.0); MONO # 0.8 10^3/uL (0.0-0.8); MONO % 7.5 % (0.0-5.0); NEUTROPHILS # 8.2 10^3/uL (1.8-7.7); NEUTROPHILS % 81.9 % (36.0-66.0); PLATELET COUNT, AUTOMATED 201 10^3/uL (150-450); RED BLOOD COUNT 3.38 10^6/uL (4.00-5.40); WHITE BLOOD COUNT 10.1 10^3/uL (4.0-10.0)
[2018-06-03 06:32] LABS: ALBUMIN 1.6 GM/DL (3.2-5.2); ALT/SGPT 23 U/L (12-78); BILIRUBIN,TOTAL 0.3 MG/DL (0.2-1.0); BLOOD UREA NITROGEN 19 MG/DL (7-18); C REACTIVE PROTEIN QUANTITATIV 4.97 MG/DL (0.00-0.30); CARBON DIOXIDE LEVEL 28 MEQ/L (21-32); CHLORIDE LEVEL 107 MEQ/L (98-107); GLOMERULAR FILTRATION RATE > 60.0 (>32); GLUCOSE, FASTING 121 MG/DL (70-100); MAGNESIUM LEVEL 1.8 MG/DL (1.8-2.4); POTASSIUM SERUM 4.2 MEQ/L (3.5-5.1); SODIUM LEVEL 140 MEQ/L (136-145); TOTAL PROTEIN 4.5 GM/DL (6.4-8.2)
[2018-06-03] MEDS: PANTOPRAZOLE 40MG INJ (PROTONIX) (C9113) IV SCH (09:35)
[2018-06-03] MEDS: ENOXAPARIN 80 MG/0.8 ML SYRINGE (J1650) SC SCH (09:35)
[2018-06-03] MEDS: SIMETHICONE 80 MG CHEW TAB PO SCH ×4 (09:36→20:50)
[2018-06-03] MEDS: LOPERAMIDE 2 MG CAP PO SCH ×2 (09:36→20:49)
[2018-06-03] MEDS: METOPROLOL TART 25 MG TABLET PO SCH ×2 (09:36→20:49)
[2018-06-03] MEDS: ACETAMINOPHEN TAB 650MG DOSE (2X325MG) PO PRN ×2 (10:25→20:49)
--- NOTE | 2018-06-03 13:56 | IPNPDOC ---
Text Note Date of Service The patient was seen on 06/03/18. NOTE Subjective: Patient is an 82-year-old female who initially presented with ischemic colitis whose hospital course was complicated by atrial fibrillation. Patient was seen and examined at the bedside. Patient was seen sitting up in chair. She reported that her abdominal pain has been subsiding significantly. Her diet, has been fully advanced and she is tolerating it without any nausea or vomiting. Continues to have loose bowel movements. Denies any chest pain, shortness of breath or palpitations. Objective: Vitals (See below) General: Lying in bed, no acute distress, comfortable, Awake / Alert HEENT: NC, AT CVS: IrIr, +S1S2 Lungs: Fair air entry b/l, -w/r/r Abdomen: Soft, ND, NT, +BSx4, midline incision - healing well Extremities: Trace pitting edema, - Calf tenderness Assessment and plan: Atrial fibrillation with rapid ventricular response - c/w metoprolol dose 100 mg PO BID - CHADS VASc: minimum of 5 - c/w Therapeutic Lovenox; RE: Repeat melanotic stools reported - Cardiology on consult Melanotic stools - Patient remains hemodynamically stable - Will check H&H [id number] - Will transfuse as needed - Repeat occult stool - Will DC anticoagulation if positive Anasarca and bilateral pleural effusions - likely 2/2 IV hydration, hypoalbuminemia, acute renal failure - Not requiring supplemental oxygen - Urinary catheter to monitor I&Os - s/p Lasix; will hold for now - Will taper down oxygen to maintain saturation >90% Leukocytosis - possibly 2/2 reactive etiology 2/2 Surgery, however possibly 2/2 underlying intra-abdominal infection - Patient remains afebrile and hemodynamically stable - CRP is trending down - CT abdomen 05/30: No intra-abdominal abscess seen, postoperative changes, cholelithiasis, large left renal cyst again noted, ileus pattern in the bowel gas. Unlikely intra abdominal source. - CXR 05/30: pleural effusions and cardiomegaly. Unlikely pulmonary source. - Liquid brown stools are being reported - C.diff PCR repeat pending - c/w Meropenem (Day #5); will repeat PCT - if negative will discontinue Ischemic colitis possibly secondary to thrombotic emboli from undiagnosed paroxysmal A. fib -Management as per general surgery Decompensated Diastolic CHF - possibly 2/2 tachyarrhythmia - Physical with trace to 1+ pitting edema - CXR 05/30: cardiomegaly, bilateral pleural effusions - s/p Lasix; will hold Lasix today Hypertension - BP well controlled - c/w metoprolol s/p SUMMER - likely 2/2 urinary retention 2/2 surgical procedure (resolved) - Schmitz catheter in place; will discontinue within next 24-48 hours if surgery agrees Abnormal blood culture: x1 culture, likely contaminant (resolved) - No growth on repeat cultures GI prophylaxis - c/w Protonix DVT prophylaxis - c/w full anticoagulation with therapeutic Lovenox Disposition: - Will likely transition patient to sub-acute rehab for continued physical therapy VS,Fishbone, I+O VS, Fishbone, I+O Laboratory Tests 06/03/18 05:28 Red Blood Count 3.38 L, Mean Corpuscular Volume 95.3, Mean Corpuscular Hemoglobin 30.8, Mean Corpuscular Hemoglobin Concent 32.3, Red Cell Distribution Width 15.3 H, Neutrophils (%) (Auto) 81.9 H, Lymphocytes (%) (Auto) 8.9 L, Monocytes (%) (Auto) 7.5 H, Eosinophils (%) (Auto) 1.1, Basophils (%) (Auto) 0.2, Neutrophils # (Auto) 8.2 H, Lymphocytes # (Auto) 0.9 L, Monocytes # (Auto) 0.8, Eosinophils # (Auto) 0.1, Basophils # (Auto) 0.0, Calcium Level 7.0 L, Aspartate Amino Transf (AST/SGOT) 37, Alanine Aminotransferase (ALT/SGPT) 23, Alkaline Phosphatase 87, Total Bilirubin 0.3, Total Protein 4.5 L, Albumin 1.6 L Vital Signs Date Time Temp Pulse Resp B/P (MAP) Pulse Ox O2 Delivery O2 Flow Rate FiO2 06/03/18 12:00 98.7 80 20 107/57 (74) 98 2.0 05/28/18 00:12 Nasal Cannula I&O- Last 24 Hours up to 6 AM 06/03/18 06:00 Intake Total 2470 ml Output Total 2520 ml Balance -50 ml BRENDA STODDARD MD Jun 03, 2018 13:55
[2018-06-03 15:39] LABS: HEMATOCRIT 29.8 % (36.0-47.0); HEMOGLOBIN 9.6 g/dl (12.0-15.5)
[2018-06-03 18:16] LABS: HEMATOCRIT 29.5 % (36.0-47.0); HEMOGLOBIN 9.7 g/dl (12.0-15.5)
[2018-06-04] VITALS (7 sets, daily range): BP systolic 100–128; BP diastolic 54–67
[2018-06-04 00:27] LABS: HEMATOCRIT 28.4 % (36.0-47.0); HEMOGLOBIN 9.3 g/dl (12.0-15.5)
[2018-06-04] MEDS: IPRATROPIUM 0.5MG/ALBUTEROL 2.5MG INH SOL UD 3ML (DUONEB)(J7620) NEB SCH ×4 (00:59→19:56)
[2018-06-04] MEDS: SODIUM CHLORIDE 0.9% INJ 10 ML SYR IV SCH ×2 (05:37→16:00)
[2018-06-04] MEDS: SLF 3 ML SYR IV SCH ×2 (05:37→14:00)
[2018-06-04 05:54] LABS: BASO % 0.5 % (0.0-1.0); EOS # 0.1 10^3/uL (0.0-0.50); EOS % 1.7 % (0.0-3.0); HEMATOCRIT 27.5 % (36.0-47.0); LYMPH # 0.8 10^3/uL (1.5-4.5); LYMPH % 11.4 % (24.0-44.0); MEAN CORPUSCULAR HEMOGLOBIN 31.5 pg (27.0-33.0); MEAN CORPUSCULAR HGB CONC 32.7 g/dl (32.0-36.5); MEAN CORPUSCULAR VOLUME 96.2 fl (80.0-96.0); MONO # 0.7 10^3/uL (0.0-0.8); MONO % 10.6 % (0.0-5.0); NEUTROPHILS % 75.6 % (36.0-66.0); PLATELET COUNT, AUTOMATED 232 10^3/uL (150-450); RED BLOOD COUNT 2.86 10^6/uL (4.00-5.40); WHITE BLOOD COUNT 6.6 10^3/uL (4.0-10.0)
[2018-06-04 06:16] LABS: ALBUMIN 1.6 GM/DL (3.2-5.2); ALT/SGPT 20 U/L (12-78); BILIRUBIN,TOTAL 0.4 MG/DL (0.2-1.0); BLOOD UREA NITROGEN 22 MG/DL (7-18); C REACTIVE PROTEIN QUANTITATIV 3.98 MG/DL (0.00-0.30); CALCIUM LEVEL 7.2 MG/DL (8.8-10.2); CARBON DIOXIDE LEVEL 29 MEQ/L (21-32); CHLORIDE LEVEL 110 MEQ/L (98-107); CREATININE FOR GFR 0.52 MG/DL (0.55-1.30); GLOMERULAR FILTRATION RATE > 60.0 (>32); GLUCOSE, FASTING 125 MG/DL (70-100); MAGNESIUM LEVEL 1.7 MG/DL (1.8-2.4); POTASSIUM SERUM 4.2 MEQ/L (3.5-5.1); SODIUM LEVEL 142 MEQ/L (136-145); TOTAL PROTEIN 4.4 GM/DL (6.4-8.2)
[2018-06-04] MEDS: PANTOPRAZOLE 40MG INJ (PROTONIX) (C9113) IV SCH (08:17)
[2018-06-04] MEDS: SIMETHICONE 80 MG CHEW TAB PO SCH ×3 (08:18→17:35)
[2018-06-04] MEDS: METOPROLOL SUCC (TopROL XL) 100MG *XL* TAB PO SCH ×2 (08:18→17:36)
[2018-06-04] MEDS: LOPERAMIDE 2 MG CAP PO SCH ×2 (08:19→21:05)
[2018-06-04] MEDS ORDERED: METOPROLOL SUCC (TopROL XL) 100MG *XL* TAB PO SCH (09:00)
--- NOTE | 2018-06-04 10:30 | IPNPDOC ---
Date Seen The patient was seen on 06/04/18. Progress Note Subjective: Patient is an 82-year-old female who initially presented with ischemic colitis whose hospital course was complicated by atrial fibrillation. Patient was seen and examined at the bedside where she is sitting up and resting comfortably. She reports that she is feeling better today. She states that she is stilling having diarrhea and that she has pain in her lower abdomen around her staple line. Her diet, has been fully advanced and she is tolerating it without any nausea or vomiting. She denies worsening shortness of breath and cough. Objective: Vitals (See below) General: Lying in bed, alert, cooperative HEENT: moist mucous membrane, no JVD appreciated CVS: irregularly irregular, not rate controlled. Systolic ejection murmur locat ed at sternal border of 2nd intercostal space. Lungs: Lungs clear to auscultation. No wheezes, rhonchi, or rales Abdomen: Soft, non distended, non tender, +bowel sounds, midline incision - healing well, bloody stool. Extremities: 1+ pitting edema in bilateral LE, L>R to mid calf. Assessment and plan: Atrial fibrillation with rapid ventricular response - Not rate controlled. Will d/c metoprolol tartrate and begin metoprolol succinate 100 mg PO BID - CHADS VASc: minimum of 5 - Lovenox discontinued 06/03 due to melanotic stools. - Cardiology on consult Melanotic stools - Patient remains hemodynamically stable - Will trend H&H [id number] - Will transfuse if needed - Anticoagulation discontinued. Anasarca and bilateral pleural effusions - likely 2/2 IV hydration, hypoalbuminemia, acute renal failure - Not requiring supplemental oxygen - Urinary catheter to monitor I&Os - s/p Lasix; will hold Lasix today Leukocytosis - possibly secondary to reactive etiology from surgery vs secondary to underlying intra-abdominal infection - Patient remains afebrile and hemodynamically stable - Leukocytosis resolved, CRP is trending down - CT abdomen 05/30: No intra-abdominal abscess seen, postoperative changes, cholelithiasis, large left renal cyst again noted, ileus pattern in the bowel gas. Unlikely intra abdominal source. - CXR 05/30: pleural effusions and cardiomegaly. Unlikely pulmonary source. - d/c Meropenem after today (6 day course) Ischemic colitis possibly secondary to thrombotic emboli from undiagnosed paroxysmal A. fib -Management as per general surgery Decompensated Diastolic CHF - possibly 2/2 tachyarrhythmia - Physical with trace to 1+ pitting edema - CXR 05/30: cardiomegaly, bilateral pleural effusions - s/p Lasix; will hold Lasix today Hypertension - BP well controlled - c/w metoprolol s/p SUMMER - likely 2/2 urinary retention 2/2 surgical procedure (resolved) - Schmitz catheter in place; will discontinue within next 24-48 hours if surgery agrees Abnormal blood culture: x1 culture, likely contaminant (resolved) - No growth on repeat cultures GI prophylaxis - c/w Protonix DVT prophylaxis - c/w full anticoagulation with therapeutic Lovenox Disposition: - Will likely transition patient to sub-acute rehab for continued physical therapy VS, I&O, 24H, [facility] Vital Signs/I&O Vital Signs Date Time Temp Pulse Resp B/P (MAP) Pulse Ox O2 Delivery O2 Flow Rate FiO2 06/04/18 08:18 113 119/67 06/04/18 08:00 98.4 20 97 2.0 06/03/18 19:47 Nasal Cannula I&O- Last 24 Hours up to 6 AM 06/04/18 07:00 Intake Total 646 ml Output Total 1490 ml Balance -844 ml Laboratory Data 24H LABS Laboratory Tests 2 06/04/18 05:34: Immature Granulocyte % (Auto) 0.2, White Blood Count 6.6, Red Blood Count 2.86L, Hemoglobin 9.0L, Hematocrit 27.5L, Mean Corpuscular Volume 96.2H, Mean Corpuscular Hemoglobin 31.5, Mean Corpuscular Hemoglobin Concent 32.7, Red Cell Distribution Width 15.5H, Platelet Count 232, Neutrophils (%) (Auto) 75.6H, Lymp hocytes (%) (Auto) 11.4L, Monocytes (%) (Auto) 10.6H, Eosinophils (%) (Auto) 1.7, Basophils (%) (Auto) 0.5, Neutrophils # (Auto) 5.0, Lymphocytes # (Auto) 0.8L, Monocytes # (Auto) 0.7, Eosinophils # (Auto) 0.1, Basophils # (Auto) 0.0, Nucleated Red Blood Cells % (auto) 0.0, Anion Gap 3L, Glomerular Filtration Rate > 60.0, Blood Urea Nitrogen 22H, Creatinine 0.52L, Sodium Level 142, Potassium Level 4.2, Chloride Level 110H, Carbon Dioxide Level 29, Calcium Level 7.2L, Aspartate Amino Transf (AST/SGOT) 26, Alanine Aminotransferase (ALT/SGPT) 20, Alkaline Phosphatase 81, Total Bilirubin 0.4, Total Protein 4.4L, Albumin 1.6L, Magnesium Level 1.7L, C-Reactive Protein, Quantitative 3.98H, Albumin/Globulin Ratio 0.57L CBC/BMP Laboratory Tests 06/03/18 15:23 06/03/18 17:54 06/03/18 23:52 06/04/18 05:34 Red Blood Count 2.86 L, Mean Corpuscular Volume 96.2 H, Mean Corpuscular Hemoglobin 31.5, Mean Corpuscular Hemoglobin Concent 32.7, Red Cell Distribution Width 15.5 H, Neutrophils (%) (Auto) 75.6 H, Lymphocytes (%) (Auto) 11.4 L, Monocytes (%) (Auto) 10.6 H, Eosinophils (%) (Auto) 1.7, Basophils (%) (Auto) 0.5, Neutrophils # (Auto) 5.0, Lymphocytes # (Auto) 0.8 L, Monocytes # (Auto) 0.7, Eosinophils # (Auto) 0.1, Basophils # (Auto) 0.0, Calcium Level 7.2 L, Aspartate Amino Transf (AST/SGOT) 26, Alanine Aminotransferase (ALT/SGPT) 20, Alkaline Phosphatase 81, Total Bilirubin 0.4, Total Protein 4.4 L, Albumin 1.6 L Microbiology Microbiology 05/26/18 Blood Culture - Final, Complete NO GROWTH AFTER 5 DAYS 05/26/18 Blood Culture - Final, Complete NO GROWTH AFTER 5 DAYS 05/25/18 Blood Culture - Final, Complete NO GROWTH AFTER 5 DAYS 06/03/18 Stool Occult Blood (BEN) - Final, Complete 05/29/18 Stool Occult Blood (BEN) - Final, Complete 05/31/18 MRSA Screen - Final, Complete GME ATTESTATION GME ATTESTATION My faculty preceptor for this patient encounter was physically present during the encounter and was fully available. All aspects of the patient interview, examination, medical decision making process, and medical care plan development were reviewed and approved by the faculty preceptor. The faculty preceptor is aware and concurs with the plan as stated in the body of this note and will attest to such by his/her cosignature. ATTENDING NOTE I, Tesha Stoddard, have both independently examined this patient as well as r eviewed the documentation. I have discussed in detail with the resident the findings and plan of treatment as documented in the residents documentation. I will continue to follow the patient and offer further guidance to the patients care as necessary during this hospital stay. JAYDON LANE S-III Jun 04, 2018 10:29 TESHA STODDARD MD Jun 04, 2018 15:05
[2018-06-04] MEDS: MEROPENEM INJ 500 MG in APPROPRIATE DILUENT 1 EA IV SCH (13:04)
[2018-06-04 15:33] LABS: HEMATOCRIT 27.5 % (36.0-47.0); HEMOGLOBIN 8.9 g/dl (12.0-15.5)
[2018-06-04 20:14] LABS: HEMATOCRIT 27.1 % (36.0-47.0); HEMOGLOBIN 8.8 g/dl (12.0-15.5)
--- NOTE | 2018-06-04 20:46 | IPN ---
DATE: 06/04/2018 The patient is an 82-year-old woman who was admitted on May 22 with severe abdominal pain and underwent exploratory laparotomy by Dr. Redmond. He identified an infarcted right colon and performed an extended right hemicolectomy with anastomosis. The patient had her diet gradually advanced and has been on a low residue diet since the June 01. She is having bowel function. She denies any abdominal pain and reports today that she is feeling better. This is my first opportunity to meet this patient as I have now covering for Dr. Redmond for several days. Vital signs: The patient has been afebrile for the last 24 hours. Her pulse has been quite variable, ranging between 86 and 157 over the last 24 hours. Her blood pressure has been acceptable and her oxygen saturation is good. Intake and output show that yesterday she had 900 recorded in with 1200 recorded out. She has one abdominal drain still in place which had 180 mL out yesterday. She had seven bowel movements recorded yesterday as well. The stool has reportedly been loose and bloody. The patient does not seem to be on any anticoagulants currently. PHYSICAL EXAMINATION: The patient is an elderly woman lying quietly on the hospital bed. She is alert and responsive. Not complaining of any pain right at this time. Heart exam reveals her to be somewhat tachycardic currently. Lungs are clear. The abdomen is flat with bowel sounds present. Laboratory studies today show a white count of 7, hemoglobin 9, hematocrit of 28 and a platelet count of 232,000. Differential count shows 76% neutrophils, 11% lymphocytes and 11% monocytes. Her blood count has diminished several points over the last 24-48 hours. Chemistries today showed a sodium of 142, potassium 4.2, chloride 110, CO2 of 29, BUN of 22, creatinine 0.5 and a glucose of 125. Her C-reactive protein is 4 with a total protein of 4.4 and an albumin of 1.6. The patient has no new imaging today. IMPRESSION: The patient has done fairly well from her extended right hemicolectomy for an ischemic right colon. Her two most obvious current issues include her dysrhythmias with atrial fibrillation, now with some significant tachycardia and her ongoing multiple bowel movements that are apparently heme-positive. PLAN: The patient is not currently on any anticoagulation. Her blood count has dropped from 33-34 for hematocrit to 28 today. She has another determination of her CBC pending currently. She may well require transfusion if she continues to have some bleeding. Hopefully this will stop spontaneously without the need for any further evaluation. Her cardiac status is being monitored by the hospitalist, and she has been seen by cardiology as well. The patient will be encouraged to eat and hopefully we will see her regain some strength with improvement in her albumin such that she can better mobilize her third space fluid. JENNIFER
[2018-06-05 01:18] LABS: HEMATOCRIT 26.3 % (36.0-47.0); HEMOGLOBIN 8.4 g/dl (12.0-15.5)
[2018-06-05] MEDS: MEROPENEM INJ 500 MG in APPROPRIATE DILUENT 1 EA IV SCH (01:20)
[2018-06-05] MEDS: IPRATROPIUM 0.5MG/ALBUTEROL 2.5MG INH SOL UD 3ML (DUONEB)(J7620) NEB SCH ×4 (02:28→20:03)
[2018-06-05 04:00] VITALS: BP 124/58
[2018-06-05] MEDS: METOPROLOL SUCC (TopROL XL) 100MG *XL* TAB PO SCH ×2 (05:54→17:03)
[2018-06-05] MEDS: SODIUM CHLORIDE 0.9% INJ 10 ML SYR IV SCH ×2 (05:55→17:03)
[2018-06-05 06:19] LABS: HEMATOCRIT 25.3 % (36.0-47.0); HEMOGLOBIN 8.3 g/dl (12.0-15.5); MEAN CORPUSCULAR HEMOGLOBIN 32.2 pg (27.0-33.0); MEAN CORPUSCULAR HGB CONC 32.8 g/dl (32.0-36.5); MEAN CORPUSCULAR VOLUME 98.1 fl (80.0-96.0); PLATELET COUNT, AUTOMATED 220 10^3/uL (150-450); RED BLOOD COUNT 2.58 10^6/uL (4.00-5.40); WHITE BLOOD COUNT 5.6 10^3/uL (4.0-10.0)
[2018-06-05 06:44] LABS: ALBUMIN 1.7 GM/DL (3.2-5.2); ALT/SGPT 23 U/L (12-78); BILIRUBIN,TOTAL 0.3 MG/DL (0.2-1.0); BLOOD UREA NITROGEN 21 MG/DL (7-18); CALCIUM LEVEL 7.2 MG/DL (8.8-10.2); CARBON DIOXIDE LEVEL 27 MEQ/L (21-32); CHLORIDE LEVEL 110 MEQ/L (98-107); GLOMERULAR FILTRATION RATE > 60.0 (>32); GLUCOSE, FASTING 125 MG/DL (70-100); MAGNESIUM LEVEL 1.6 MG/DL (1.8-2.4); POTASSIUM SERUM 4.3 MEQ/L (3.5-5.1); SODIUM LEVEL 144 MEQ/L (136-145); TOTAL PROTEIN 4.5 GM/DL (6.4-8.2)
[2018-06-05 07:39] LABS: BASOPHILS 1 % (0-4); EOSINOPHILS 3 % (0-5); LYMPHOCYTES 31 % (16-52); MONOCYTES 2 % (0-8); NEUTROPHILS 50 % (35-75)
[2018-06-05 07:40] LABS: PLATELET ESTIMATE NORMAL (NORMAL)
[2018-06-05 07:41] LABS: HYPOCHROMASIA 1+
[2018-06-05 07:42] LABS: ANISOCYTOSIS 1+
[2018-06-05 08:00] VITALS: BP 108/61
[2018-06-05] MEDS: SODIUM CHLORIDE 0.9% INJ 10 ML SYR IV PRN (08:20)
[2018-06-05] MEDS: PANTOPRAZOLE 40MG INJ (PROTONIX) (C9113) IV SCH (08:20)
[2018-06-05] MEDS: LOPERAMIDE 2 MG CAP PO SCH ×2 (08:20→20:35)
--- NOTE | 2018-06-05 08:42 | IPNPDOC ---
Date Seen The patient was seen on 06/05/18. Progress Note Subjective: Overnight, 3 small malik stools. Radha at baseline, and unable to assess functional status. no c/o sob, abd pain, chest pain, pressure, tightness, dizziness, or lightheadedness Telemetry, vtach last night 14 beats, 11 this am at 0400am. Objective: Vitals (See below) General: Lying in bed, no acute distress, comfortable, Awake / Alert HEENT: NC, AT CVS: IrIr, +S1S2 Lungs: Fair air entry b/l, -w/r/r Abdomen: Soft, ND, NT, +BSx4, midline incision - healing well Extremities: Trace pitting edema, - Calf tenderness laboratory data, imaging studies, microbiology: reviewed, pls see below ECHO: CONCLUSIONS: 1. Study is of very limited technical quality. 2. Normal left ventricle (LV) size. Probably normal or near normal LV systolic function based on very limited visualization. Septal wall motion abnormality likely related to underlying conductive system disease. 3. Unable to comment on the right ventricular systolic function. 4. Left atrial enlargement. 5. Aortic sclerosis with trivial stenosis 6. Mild mitral insufficiency. 7. Probably normal central venous pressure. 8. At least moderate pulmonary hypertension. COMMENT: Subacute bacterial endocarditis (SBE) prophylaxis is not recommended. DD: Felicita Fleming MD 05/26/18 9201 Assessment and plan: An 82-year-old woman with a history of hypertension and hyperlipidemiapresented to the ER with 2-3days h/o diarrhea, and sudden abdominal pain about 6-8 hours prior to ER visit, and was subseq uently diagnoses with ischemic colitis s/p right colectomy and gastrostomy tube placement, with postop new onset atrial fibrillation with a rapid ventricular response, s/p beta marcia, digoxin, intravenous (IV) Cardizem. Ischemic colitis secondary to newly diagnosed paroxysmal A. fib -s/p right hemicolectomy -with ongoing melanotic stools -H&H monitoring, and pt agreeable to blood transfusion if needed for symptoms or if hgb<8. NSVT -telemetry 14 beats 06/04/18, 11 beats 06/05/18, asx with vitals stable -on metoprolol -mg 1.6, which was supplemented with 2grams iv mag runs. repeat mg q6hrs to optimize -k 4.3 06/05/18. -Echo reviewed Atrial fibrillation with rapid ventricular response , controlled - c/w metoprolol dose 100 mg PO BID - CHADS VASc: minimum of 5 - c/w Therapeutic Lovenox; RE: Repeat melanotic stools reported - Cardiology on consult Acute GI bleed -with Melanotic stools - Patient remains hemodynamically stable - Will check H&H [id number] - Will transfuse as needed - Repeat occult stool - Will DC anticoagulation if positive Anasarca and bilateral pleural effusions - likely 2/2 IV hydration, hypoalbuminemia, acute renal failure - Not requiring supplemental oxygen - Urinary catheter to monitor I&Os - s/p Lasix; will hold for now - Will taper down oxygen to maintain saturation >90% Hypomagnesemia -mg 1.6 06/05/18, supplemented to goal of 2 due to NSVT 11-14 beats on Tele, asx and vitals stable. Leukocytosis - possibly 2/2 reactive etiology 2/2 Surgery, however possibly 2/2 underlying intra-abdominal infection - Patient remains afebrile and hemodynamically stable - CRP is trending down - CT abdomen 05/30: No intra-abdominal abscess seen, postoperative changes, cholelithiasis, large left renal cyst again noted, ileus pattern in the bowel gas. Unlikely intra abdominal source. - CXR 05/30: pleural effusions and cardiomegaly. Unlikely pulmonary source. - Liquid brown stools are being reported - C.diff PCR repeat pending - c/w Meropenem will repeat PCT - if negative will discontinue Decompensated Diastolic CHF - possibly 2/2 tachyarrhythmia - Physical with trace to 1+ pitting edema - CXR 05/30: cardiomegaly, bilateral pleural effusions - s/p Lasix; will hold Lasix today Hypertension - BP well controlled - c/w metoprolol s/p SUMMER - resolved - likely 2/2 urinary retention 2/2 surgical procedure (resolved) - Schmitz catheter in place; will discontinue within next 24-48 hours if surgery agrees Abnormal blood culture: x1 culture, likely contaminant (resolved) - No growth on repeat cultures GI prophylaxis - c/w Protonix DVT prophylaxis - c/w full anticoagulation with therapeutic Lovenox Disposition: - Will likely transition patient to sub-acute rehab for continued physical therapy VS, I&O, 24H, [facility] Vital Signs/I&O Vital Signs Date Time Temp Pulse Resp B/P (MAP) Pulse Ox O2 Delivery O2 Flow Rate FiO2 06/05/18 07:22 Nasal Cannula 2.0 06/05/18 04:00 99.2 87 18 124/58 (80) 96 I&O- Last 24 Hours up to 6 AM 06/05/18 06:00 Intake Total 650 ml Output Total 1290 ml Balance -640 ml Laboratory Data 24H LABS Laboratory Tests 2 06/04/18 12:43: Bedside Glucose (Misc Panel) 118H 06/04/18 16:55: Bedside Glucose (Misc Panel) 134H 06/05/18 05:56: Nucleated Red Blood Cells % (auto) 0.0, Neutrophils 50, Band Neutrophils 13H, Lymphocytes (Manual) 31, Monocytes (Manual) 2, Eosinophils (Manual) 3, Basophils (Manual) 1, Platelet Estimate NORMAL, Hypochromasia 1+, Anisocytosis 1+, Anion Gap 7L, Glomerular Filtration Rate > 60.0, Blood Urea Nitrogen 21H, Creatinine 0.50L, Sodium Level 144, Potassium Level 4.3, Chloride Level 110H, Carbon Dioxide Level 27, Calcium Level 7.2L, Aspartate Amino Transf (AST/SGOT) 31, Alanine Aminotransferase (ALT/SGPT) 23, Alkaline Phosphatase 99, Total Bilirubin 0.3, Total Protein 4.5L, Albumin 1.7L, Magnesium Level 1.6L, Albumin/Globulin Ratio 0.61L CBC/BMP Laboratory Tests 06/04/18 15:12 06/04/18 19:48 06/05/18 01:13 06/05/18 05:56 Red Blood Count 2.58 L, Mean Corpuscular Volume 98.1 H, Mean Corpuscular Hemoglobin 32.2, Mean Corpuscular Hemoglobin Concent 32.8, Red Cell Distribution Width 15.7 H, Calcium Level 7.2 L, Aspartate Amino Transf (AST/SGOT) 31, Alanine Aminotransferase (ALT/SGPT) 23, Alkaline Phosphatase 99, Total Bilirubin 0.3, Total Protein 4.5 L, Albumin 1.7 L Microbiology Microbiology 05/26/18 Blood Culture - Final, Complete NO GROWTH AFTER 5 DAYS 05/26/18 Blood Culture - Final, Complete NO GROWTH AFTER 5 DAYS 06/03/18 Stool Occult Blood (BEN) - Final, Complete 05/29/18 Stool Occult Blood (BEN) - Final, Complete 05/31/18 MRSA Screen - Final, Complete HALLIE BUSTOS MD Jun 05, 2018 08:16
[2018-06-05] MEDS: MAG SULF 1GM/100ML (MAG RUN) 1 GM in APPROPRIATE DILUENT 1 EA IV SCH ×2 (09:12→10:15)
[2018-06-05 12:00] VITALS: BP 120/59
[2018-06-05 12:19] LABS: HEMATOCRIT 25.4 % (36.0-47.0); HEMOGLOBIN 8.3 g/dl (12.0-15.5)
[2018-06-05 12:52] LABS: MB/CK RELATIVE INDEX 7.11 (< OR =4); TROPONIN I 0.03 NG/ML (< 0.10)
[2018-06-05 16:00] VITALS: BP 121/65
[2018-06-05 17:42] LABS: HEMATOCRIT 26.5 % (36.0-47.0); HEMOGLOBIN 8.4 g/dl (12.0-15.5)
[2018-06-05 17:52] LABS: MAGNESIUM LEVEL 1.9 MG/DL (1.8-2.4); MB/CK RELATIVE INDEX 5.5 (< OR =4); TROPONIN I 0.04 NG/ML (< 0.10)
[2018-06-05 20:00] VITALS: BP 131/61
[2018-06-05 23:00] VITALS: BP 127/60
[2018-06-06] VITALS (9 sets, daily range): BP systolic 94–138; BP diastolic 53–73
[2018-06-06] MEDS: IPRATROPIUM 0.5MG/ALBUTEROL 2.5MG INH SOL UD 3ML (DUONEB)(J7620) NEB SCH ×4 (01:53→20:53)
[2018-06-06] MEDS: SODIUM CHLORIDE 0.9% INJ 10 ML SYR IV SCH ×2 (04:39→18:00)
[2018-06-06] MEDS: METOPROLOL SUCC (TopROL XL) 100MG *XL* TAB PO SCH ×2 (04:39→18:07)
[2018-06-06 04:46] LABS: HEMOGLOBIN 8.2 g/dl (12.0-15.5); MEAN CORPUSCULAR HEMOGLOBIN 32.2 pg (27.0-33.0); MEAN CORPUSCULAR HGB CONC 32.8 g/dl (32.0-36.5); PLATELET COUNT, AUTOMATED 247 10^3/uL (150-450); RED BLOOD COUNT 2.55 10^6/uL (4.00-5.40); WHITE BLOOD COUNT 5.3 10^3/uL (4.0-10.0)
[2018-06-06 05:22] LABS: ALBUMIN 1.7 GM/DL (3.2-5.2); ALT/SGPT 37 U/L (12-78); BILIRUBIN,TOTAL 0.4 MG/DL (0.2-1.0); BLOOD UREA NITROGEN 19 MG/DL (7-18); CALCIUM LEVEL 7.2 MG/DL (8.8-10.2); CARBON DIOXIDE LEVEL 29 MEQ/L (21-32); CHLORIDE LEVEL 108 MEQ/L (98-107); CREATININE FOR GFR 0.52 MG/DL (0.55-1.30); GLOMERULAR FILTRATION RATE > 60.0 (>32); GLUCOSE, FASTING 133 MG/DL (70-100); MAGNESIUM LEVEL 1.8 MG/DL (1.8-2.4); POTASSIUM SERUM 4.3 MEQ/L (3.5-5.1); SODIUM LEVEL 141 MEQ/L (136-145); TOTAL PROTEIN 4.7 GM/DL (6.4-8.2)
[2018-06-06 05:28] LABS: EOSINOPHILS 2 % (0-5); LYMPHOCYTES 28 % (16-52); MONOCYTES 8 % (0-8)
[2018-06-06 05:29] LABS: NEUTROPHILS 59 % (35-75); PLATELET CLUMPS MODERATE AMT; PLATELET ESTIMATE NORMAL (NORMAL)
[2018-06-06 05:30] LABS: ANISOCYTOSIS 1+; HYPOCHROMASIA 1+; MICROCYTOSIS 1+
[2018-06-06 05:32] LABS: DOHLE BODIES 1+
[2018-06-06] MEDS: PANTOPRAZOLE 40MG TAB (PROTONIX) PO SCH (08:24)
[2018-06-06] MEDS: LOPERAMIDE 2 MG CAP PO SCH ×2 (08:24→20:03)
[2018-06-06] MEDS: ONDANSETRON 4MG/2ML VIAL (J2405) IV PRN (12:40)
[2018-06-06 12:58] LABS: HEMATOCRIT 25.3 % (36.0-47.0); HEMOGLOBIN 8.2 g/dl (12.0-15.5)
--- NOTE | 2018-06-06 14:32 | IPNPDOC ---
Date Seen The patient was seen on 06/06/18. Progress Note Subjective: Yesterday, pt had nsvt on tele, mg and k were optimized. pt continues to have black stools, c/o generalized weakness, but hgb remains 8.2 unchanged for the past 24 hrs. she c/o some abdominal discomfort at the incision site, and is cooperative with physical therapy. Objective: Vitals (See below) General: Lying in bed, no acute distress, comfortable, Awake / Alert HEENT: NC, AT CVS: IrIr, +S1S2 Lungs: Fair air entry b/l, -w/r/r Abdomen: Soft, ND, NT, +BSx4, midline incision - healing well Extremities: Trace pitting edema, - Calf tenderness laboratory data, imaging studies, microbiology: reviewed, pls see below ECHO: CONCLUSIONS: 1. Study is of very limited technical quality. 2. Normal left ventricle (LV) size. Probably normal or near normal LV systolic function based on very limited visualization. Septal wall motion abnormality likely related to underlying conductive system disease. 3. Unable to comment on the right ventricular systolic function. 4. Left atrial enlargement. 5. Aortic sclerosis with trivial stenosis 6. Mild mitral insufficiency. 7. Probably normal central venous pressure. 8. At least moderate pulmonary hypertension. COMMENT: Subacute bacterial endocarditis (SBE) prophylaxis is not recommended. DD: Felicita Fleming MD 05/26/18 6003 Assessment and plan: An 82-year-old woman with a history of hypertension and hyperlipidemiapresented to the ER with 2-3days h/o diarrhea, and sudden abdominal pain about 6-8 hours prior to ER visit, and was subsequently diagnoses with ischemic colitis s/p right colectomy and gastrostomy tube placement, with postop new onset atrial fibrillation with a rapid ventricular response, s/p beta marcia, digoxin, intravenous (IV) Cardizem. Ischemic colitis secondary to newly diagnosed paroxysmal A. fib -s/p right hemicolectomy -with ongoing melanotic stools -H&H monitoring, and pt agreeable to blood transfusion if needed for symptoms or if hgb<8. NSVT -telemetry 14 beats 06/04/18, 11 beats 06/05/18, asx with vitals stable -on metoprolol -mg 1.6, which was supplemented with 2grams iv mag runs. repeat mg q6hrs to optimize -k 4.3 06/05/18. -Echo reviewed Atrial fibrillation with rapid ventricular response , controlled - c/w metoprolol dose 100 mg PO BID - CHADS VASc: minimum of 5 - c/w Therapeutic Lovenox; RE: Repeat melanotic stools reported - Cardiology on consult Acute GI bleed -with Melanotic stools - Patient remains hemodynamically stable - Will check H&H [id number] - Will transfuse as needed - Repeat occult stool - Will DC anticoagulation if positive Anasarca and bilateral pleural effusions - likely 2/2 IV hydration, hypoalbuminemia, acute renal failure - Not requiring supplemental oxygen - Urinary catheter to monitor I&Os - s/p Lasix; will hold for now - Will taper down oxygen to maintain saturation >90% Hypomagnesemia -mg 1.6 06/05/18, supplemented to goal of 2 due to NSVT 11-14 beats on Tele, asx and vitals stable. Leukocytosis - possibly 2/2 reactive etiology 2/2 Surgery, however possibly 2/2 underlying intra-abdominal infection - Patient remains afebrile and hemodynamically stable - CRP is trending down - CT abdomen 05/30: No intra-abdominal abscess seen, postoperative changes, cholelithiasis, large left renal cyst again noted, ileus pattern in the bowel gas. Unlikely intra abdominal source. - CXR 05/30: pleural effusions and cardiomegaly. Unlikely pulmonary source. - Liquid brown stools are being reported - C.diff PCR repeat pending - c/w Meropenem will repeat PCT - if negative will discontinue Decompensated Diastolic CHF - possibly 2/2 tachyarrhythmia - Physical with trace to 1+ pitting edema - CXR 05/30: cardiomegaly, bilateral pleural effusions - s/p Lasix; will hold Lasix today Hypertension - BP well controlled - c/w metoprolol s/p SUMMER - resolved - likely 2/2 urinary retention 2/2 surgical procedure (resolved) - Schmitz catheter in place; will discontinue within next 24-48 hours if surgery agrees Abnormal blood culture: x1 culture, likely contaminant (resolved) - No growth on repeat cultures GI prophylaxis - c/w Protonix DVT prophylaxis - c/w full anticoagulation with therapeutic Lovenox Disposition: - Will likely transition patient to sub-acute rehab for continued physical therapy VS, I&O, 24H, [facility] Vital Signs/I&O Vital Signs Date Time Temp Pulse Resp B/P (MAP) Pulse Ox O2 Delivery O2 Flow Rate FiO2 06/06/18 11:47 97.6 101 18 114/66 (82) 97 06/06/18 04:00 0.0 06/05/18 07:22 Nasal Cannula I&O- Last 24 Hours up to 6 AM 06/06/18 06:00 Intake Total 1370 ml Output Total 1215 ml Balance 155 ml Laboratory Data 24H LABS Laboratory Tests 2 06/05/18 17:05: Magnesium Level 1.9, Total Creatine Kinase 40, Creatine Kinase MB 2.0, Creatine Kinase MB Relative Index 5.50H, Troponin I 0.04# 06/06/18 04:31: Magnesium Level 1.8, Nucleated Red Blood Cells % (auto) 0.0, Neutrophils 59, Band Neutrophils 3, Lymphocytes (Manual) 28, Monocytes (Manual) 8, Eosinophils (Manual) 2, Dohle Bodies 1+, Platelet Estimate NORMAL, Clumped Platelets MODERATE AMT, Hypochromasia 1+, Anisocytosis 1+, Microcytosis 1+, Anion Gap 4L, Glomerular Filtration Rate > 60.0, Blood Urea Nitrogen 19H, Creatinine 0.52L, Sodium Level 141, Potassium Level 4.3, Chloride Level 108H, Carbon Dioxide Level 29, Calcium Level 7.2L, Aspartate Amino Transf (AST/SGOT) 47H, Alanine Aminotransferase (ALT/SGPT) 37, Alkaline Phosphatase 146H, Total Bilirubin 0.4, Total Protein 4.7L, Albumin 1.7L, Albumin/Globulin Ratio 0.57L CBC/BMP Laboratory Tests 06/05/18 17:05 06/06/18 04:31 Red Blood Count 2.55 L, Mean Corpuscular Volume 98.0 H, Mean Corpuscular Hemoglobin 32.2, Mean Corpuscular Hemoglobin Concent 32.8, Red Cell Distribution Width 15.8 H, Calcium Level 7.2 L, Aspartate Amino Transf (AST/SGOT) 47 H, Alanine Aminotransferase (ALT/SGPT) 37, Alkaline Phosphatase 146 H, Total Bilirubin 0.4, Total Protein 4.7 L, Albumin 1.7 L 06/06/18 12:33 Microbiology Microbiology 06/03/18 Stool Occult Blood (BEN) - Final, Complete 05/29/18 Stool Occult Blood (BEN) - Final, Complete 05/31/18 MRSA Screen - Final, Complete HALLIE BUSTOS MD Jun 06, 2018 14:32
[2018-06-06] MEDS ORDERED: DIGOXIN INJ 0.5 MG/2 ML AMP (J1160) IV STA (15:11)
[2018-06-06] MEDS ORDERED: METOPROLOL TART 25 MG TABLET PO ONE (15:15)
[2018-06-06] MEDS: SODIUM CHLORIDE 0.9% INJ 10 ML SYR IV PRN (15:27)
[2018-06-06] MEDS: NYSTATIN 100,000 UNITS/GM TOPICAL PWD 15 GM TOP SCH ×2 (15:27→21:00)
[2018-06-06] MEDS ORDERED: NS 1,000 ML IV SCH (18:30)
[2018-06-06 19:17] LABS: HEMATOCRIT 23.4 % (36.0-47.0); HEMOGLOBIN 7.5 g/dl (12.0-15.5)
[2018-06-06] MEDS ORDERED: diphenhydrAMINE 25 MG CAP PO ONE (22:15)
[2018-06-07] VITALS (7 sets, daily range): BP systolic 92–132; BP diastolic 50–66
[2018-06-07] MEDS: ACETAMINOPHEN TAB 650MG DOSE (2X325MG) PO PRN ×2 (00:10→21:18)
[2018-06-07 01:51] LABS: HEMATOCRIT 27.4 % (36.0-47.0); HEMOGLOBIN 8.7 g/dl (12.0-15.5)
[2018-06-07] MEDS: IPRATROPIUM 0.5MG/ALBUTEROL 2.5MG INH SOL UD 3ML (DUONEB)(J7620) NEB SCH ×4 (02:00→20:10)
--- NOTE | 2018-06-07 03:10 | IPN ---
DATE: 06/05/2018 The patient is an 82-year-old woman now 14 days postop from exploratory laparotomy and right hemicolectomy for ischemic bowel. She has had problems with intermittent tachycardia associated with atrial fibrillation with a rapid ventricular response. She is being monitored by the hospitalist for this problem. She is taking a regular diet. She has been having some bowel movements that appear to be blood tinged though her hematocrit has remained fairly stable. VITAL SIGNS: Show that she has been afebrile over the past 24 hours. Her pulse has varied quite a bit between the low 90s and 157. Her pulse oximetry has been normal with an acceptable blood pressure. Intake and output show that yesterday she had 700 recorded in with almost 2100 out. Her drain yesterday had 190 mL and only 90 so far today. PHYSICAL EXAMINATION: The patient is lying quietly on the hospital bed. She reports that she is feeling "better." She is alert and responsive. Heart exam shows an irregular rhythm. The lungs are clear. The abdomen is mildly protuberant. She has some active bowel sounds. Her midline incision shows ashley in place, though her wound appears to be healing very well. She has a Eligio drain in the right lower quadrant with a small amount of clear serous fluid in the bottle. Her G-tube site in the left upper quadrant shows two sutures holding the external retention disk to the skin with some erosion of the skin beneath this. Laboratory studies show a blood count this morning with a white count of 6, hemoglobin of 8, hematocrit of 25 and platelet count of 220,000. Her chemistry profile shows sodium 144, potassium 4.3, chloride 110, CO2 of 27, BUN of 21, creatinine 0.5 and glucose of 125. Her total protein is 4.5 with an albumin of 1.7. Her other liver function tests are normal. IMPRESSION: The patient appears to be doing overall fairly well now a full two weeks postop from her surgery. Her midline incision appears to be healed and the right lower quadrant drain is putting out less fluid and this is just serous. The patient remains somewhat frail and is not moving well. PLAN: The patient's Eligio drain was removed and the site dressed. I removed the sutures from her G-tube retention disk and instructed the nurse on how to dress the site. I have asked the nurses to remove her midline surgical ashley. She will remain on a regular diet. Physical therapy has been consulted by the hospitalist. I will leave it to the hospitalist to continue to manage the cardiac issues. JENNIFER
--- NOTE | 2018-06-07 03:15 | IPN ---
DATE: 06/06/2018 HISTORY: The patient is now 15 days postop from an urgent exploratory laparotomy, right hemicolectomy for ischemic bowel. She has had issues with atrial fib with a rapid ventricular response. She remains quite weak but is eating a regular diet. She continues with fairly loose stools that appeared to have some blood staining. VITAL SIGNS: Show that she has been afebrile over the past 24 hours. Her pulse has ranged from approximately 86-122. Her oxygen saturation and blood pressure are fine. Intake and output shows that yesterday she had 1000 in and approximately 1000 out. PHYSICAL EXAMINATION: The patient remains lying quietly in bed. She does respond appropriately to voice and questions. She denies any significant pain currently. She reports she has not been sleeping well largely because of her loose bowel movements. Abdomen remains somewhat protuberant but the abdomen is soft and nontender. Her incision looks good. Laboratory studies this morning show stable electrolytes, BUN, creatinine and glucose relative to yesterday. Her CBC today shows a white count of 5 with a hemoglobin of 8, hematocrit of 25 and a platelet count of 247,000. IMPRESSION: The patient remains quite stable. Her hematocrit is without significant change at approximately 25%. Her bowel movements appear to be having some malik color as described by the nursing staff, but she is clearly not bleeding briskly. She is tolerating a diet. Physical therapy today reported that she was not strong enough to consider discharge. PLAN: We will continue to monitor the patient's hematocrit for signs of bleeding. Her diet will continue. Physical therapy will be continued. I will leave the management of her atrial fibrillation to the hospitalist and cardiology as needed. JENNIFER
[2018-06-07] MEDS: SODIUM CHLORIDE 0.9% INJ 10 ML SYR IV SCH ×2 (05:26→17:57)
[2018-06-07] MEDS: METOPROLOL SUCC (TopROL XL) 100MG *XL* TAB PO SCH ×2 (05:26→17:56)
[2018-06-07 05:45] LABS: HEMATOCRIT 27.8 % (36.0-47.0); HEMOGLOBIN 9.1 g/dl (12.0-15.5); MEAN CORPUSCULAR HEMOGLOBIN 31.3 pg (27.0-33.0); MEAN CORPUSCULAR HGB CONC 32.7 g/dl (32.0-36.5); MEAN CORPUSCULAR VOLUME 95.5 fl (80.0-96.0); PLATELET COUNT, AUTOMATED 229 10^3/uL (150-450); RED BLOOD COUNT 2.91 10^6/uL (4.00-5.40); WHITE BLOOD COUNT 5.2 10^3/uL (4.0-10.0)
[2018-06-07 06:16] LABS: ALBUMIN 1.7 GM/DL (3.2-5.2); ALT/SGPT 37 U/L (12-78); BILIRUBIN,TOTAL 0.5 MG/DL (0.2-1.0); BLOOD UREA NITROGEN 20 MG/DL (7-18); CALCIUM LEVEL 7.2 MG/DL (8.8-10.2); CARBON DIOXIDE LEVEL 27 MEQ/L (21-32); CHLORIDE LEVEL 109 MEQ/L (98-107); CREATININE FOR GFR 0.59 MG/DL (0.55-1.30); GLOMERULAR FILTRATION RATE > 60.0 (>32); GLUCOSE, FASTING 118 MG/DL (70-100); MAGNESIUM LEVEL 1.8 MG/DL (1.8-2.4); POTASSIUM SERUM 4.2 MEQ/L (3.5-5.1); SODIUM LEVEL 142 MEQ/L (136-145); TOTAL PROTEIN 4.7 GM/DL (6.4-8.2)
[2018-06-07 06:34] LABS: LYMPHOCYTES 21 % (16-52); MONOCYTES 10 % (0-8); NEUTROPHILS 68 % (35-75)
[2018-06-07 06:35] LABS: ANISOCYTOSIS 1+; PLATELET ESTIMATE NORMAL (NORMAL)
[2018-06-07 06:36] LABS: TOXIC GRANULATION 1+; TOXIC VACUOLATION 1+
--- NOTE | 2018-06-07 08:10 | REP ---
Portable chest, 07:42 a.m., single AP view, the patient sitting: Comparison is 05/30/2018. There are bilateral pleural effusions, not significantly changed. The previous left basilar atelectasis has resolved. There is new atelectasis inferiorly in the right lung. Cardiac size is enlarged, unchanged. The left upper extremity PICC line is unchanged. Surgical clips in the left axilla, unchanged. Impression: The left basilar atelectasis has resolved. There is new right basilar atelectasis. The pleural effusions are unchanged. Electronically Signed by Mario Lira MD 06/07/2018 08:01 A
[2018-06-07 08:12] LABS: NT-PRO BNP 6884 PG/ML (<450)
[2018-06-07] MEDS: LOPERAMIDE 2 MG CAP PO SCH ×2 (09:15→21:17)
[2018-06-07] MEDS: PANTOPRAZOLE 40MG TAB (PROTONIX) PO SCH (09:15)
[2018-06-07] MEDS: NYSTATIN 100,000 UNITS/GM TOPICAL PWD 15 GM TOP SCH ×2 (09:16→21:17)
--- NOTE | 2018-06-07 11:39 | IPNPDOC ---
Date Seen The patient was seen on 06/07/18. Progress Note Subjective: uncontrolled Afib despite metoprolol 100 mg bidRN called with rate of 130 after pt worked with physical therapy , received metoprolol 25 mg po x 1, digoxin x 1 dose. this am at 6am pt had nsvt on tele, 7 beats mg and k were optimized. pt continues to have blood-tinged brown stool, c/o generalized weakness, s/p 1 unit rbc for hgb7.5 , improved 9. Objective: Vitals (See below) General: Lying in bed, no acute distress, comfortable, Awake / Alert HEENT: NC, AT CVS: IrIr, +S1S2 Lungs: Fair air entry b/l, -w/r/r Abdomen: Soft, ND, NT, +BSx4, midline incision - healing well Extremities: Trace pitting edema, - Calf tenderness laboratory data, imaging studies, microbiology: reviewed, pls see below ECHO: CONCLUSIONS: 1. Study is of very limited technical quality. 2. Normal left ventricle (LV) size. Probably normal or near normal LV systolic function based on very limited visualization. Septal wall motion abnormality likely related to underlying conductive system disease. 3. Unable to comment on the right ventricular systolic function. 4. Left atrial enlargement. 5. Aortic sclerosis with trivial stenosis 6. Mild mitral insufficiency. 7. Probably normal central venous pressure. 8. At least moderate pulmonary hypertension. COMMENT: Subacute bacterial endocarditis (SBE) prophylaxis is not recommended. DD: Felicita Fleming MD 05/26/18 0120 Assessment and plan: An 82-year-old woman with a history of hypertension and hyperlipidemiapresented to the ER with 2-3days h/o diarrhea, and sudden abdominal pain about 6-8 hours prior to ER visit, and was subsequently diagnoses with ischemic colitis s/p right colectomy and gastrostomy tube placement, with postop new onset atrial fibrillation with a rapid ventricular response, s/p beta marcia, digoxin, intravenous (IV) Cardizem. Ischemic colitis secondary to newly diagnosed paroxysmal A. fib -s/p right hemicolectomy -with ongoing melanotic stools -H&H monitoring, and pt agreeable to blood transfusion if needed for symptoms or if hgb<8. -s/p 1 unit rbc overnight 03/08/18 for hgb 7.9, with repeat hgb9. -defer to surgery to decide on further gi bleed mgt. NSVT -telemetry 14 beats 06/04/18, 11 beats 06/05/18, asx with vitals stable; 7beats 06/07/18 6am with normal mg -on metoprolol -mg 1.6, which was supplemented with 2grams iv mag runs. repeat mg q6hrs to optimize -k 4.3 06/05/18. -Echo reviewed Atrial fibrillation with rapid ventricular response , controlled - c/w metoprolol dose 100 mg PO BID - CHADS VASc: minimum of 5 - c/w Therapeutic Lovenox; RE: Repeat melanotic stools reported - Cardiology on consult Acute GI bleed -with Melanotic stools - Patient remains hemodynamically stable - Will check H&H [id number] - Will transfuse as needed - Repeat occult stool - Will DC anticoagulation if positive Anasarca and bilateral pleural effusions - likely 2/2 IV hydration, hypoalbuminemia, acute renal failure - Not requiring supplemental oxygen - Urinary catheter to monitor I&Os - s/p Lasix; will hold for now - Will taper down oxygen to maintain saturation >90% Hypomagnesemia -mg 1.6 06/05/18, supplemented to goal of 2 due to NSVT 11-14 beats on Tele, asx and vitals stable. Leukocytosis - possibly 2/2 reactive etiology 2/2 Surgery, however possibly 2/2 underlying intra-abdominal infection - Patient remains afebrile and hemodynamically stable - CRP is trending down - CT abdomen 05/30: No intra-abdominal abscess seen, postoperative changes, cholelithiasis, large left renal cyst again noted, ileus pattern in the bowel gas. Unlikely intra abdominal source. - CXR 05/30: pleural effusions and cardiomegaly. Unlikely pulmonary source. - Liquid brown stools are being reported - C.diff PCR repeat pending - c/w Meropenem will repeat PCT - if negative will discontinue Decompensated Diastolic CHF - possibly 2/2 tachyarrhythmia - Physical with trace to 1+ pitting edema - CXR 05/30: cardiomegaly, bilateral pleural effusions - s/p Lasix; will hold Lasix today Hypertension - BP well controlled - c/w metoprolol s/p SUMMER - resolved - likely 2/2 urinary retention 2/2 surgical procedure (resolved) - Schmitz catheter in place; will discontinue within next 24-48 hours if surgery agrees Abnormal blood culture: x1 culture, likely contaminant (resolved) - No growth on repeat cultures GI prophylaxis - c/w Protonix Disposition: - Will likely transition patient to sub-acute rehab for continued physical therapy VS, I&O, 24H, Fishbone Vital Signs/I&O Vital Signs Date Time Temp Pulse Resp B/P (MAP) Pulse Ox O2 Delivery O2 Flow Rate FiO2 06/07/18 08:03 97.0 86 18 132/63 (86) 95 06/07/18 00:15 1.0 06/05/18 07:22 Nasal Cannula I&O- Last 24 Hours up to 6 AM 06/07/18 06:00 Intake Total 1550 ml Output Total 550 ml Balance 1000 ml Laboratory Data 24H LABS Laboratory Tests 2 06/07/18 05:18: Nucleated Red Blood Cells % (auto) 0.6H, Neutrophils 68, Band Neutrophils 1, Lymphocytes (Manual) 21, Monocytes (Manual) 10H, Toxic Granulation 1+, Toxic Vacuolation 1+, Platelet Estimate NORMAL, Anisocytosis 1+, Anion Gap 6L, Glomerular Filtration Rate > 60.0, Blood Urea Nitrogen 20H, Creatinine 0.59, Sodium Level 142, Potassium Level 4.2, Chloride Level 109H, Carbon Dioxide Level 27, Calcium Level 7.2L, Aspartate Amino Transf (AST/SGOT) 40H, Alanine Aminotransferase (ALT/SGPT) 37, Alkaline Phosphatase 138H, Total Bilirubin 0.5, Total Protein 4.7L, Albumin 1.7L, Magnesium Level 1.8, C-Reactive Protein, Quantitative 13.60H, [id number]-Type Natriuretic Peptide 6884H, Albumin/Globulin Ratio 0.57L CBC/BMP Laboratory Tests 06/06/18 12:33 06/06/18 19:05 06/07/18 01:38 06/07/18 05:18 Red Blood Count 2.91 L, Mean Corpuscular Volume 95.5, Mean Corpuscular Hemoglobin 31.3, Mean Corpuscular Hemoglobin Concent 32.7, Red Cell Distribution Width 16.8 H, Calcium Level 7.2 L, Aspartate Amino Transf (AST/SGOT) 40 H, Alanine Aminotransferase (ALT/SGPT) 37, Alkaline Phosphatase 138 H, Total Bilirubin 0.5, Total Protein 4.7 L, Albumin 1.7 L Microbiology Microbiology 06/03/18 Stool Occult Blood (BEN) - Final, Complete 05/29/18 Stool Occult Blood (BEN) - Final, Complete 05/31/18 MRSA Screen - Final, Complete HALLIE BUSTOS MD Jun 07, 2018 11:35
[2018-06-07] MEDS: SODIUM CHLORIDE 0.9% INJ 10 ML SYR IV PRN (12:43)
[2018-06-07 13:05] LABS: HEMATOCRIT 29.8 % (36.0-47.0); HEMOGLOBIN 9.4 g/dl (12.0-15.5)
[2018-06-07 18:16] LABS: HEMATOCRIT 27.5 % (36.0-47.0); HEMOGLOBIN 8.9 g/dl (12.0-15.5)
[2018-06-07] MEDS ORDERED: FUROSEMIDE 20 MG/2 ML VIAL (J1940) IV ONE (20:00)
[2018-06-08] VITALS (8 sets, daily range): BP systolic 90–138; BP diastolic 54–71
[2018-06-08] MEDS: IPRATROPIUM 0.5MG/ALBUTEROL 2.5MG INH SOL UD 3ML (DUONEB)(J7620) NEB SCH ×4 (01:03→19:36)
[2018-06-08 05:26] LABS: HEMATOCRIT 27.5 % (36.0-47.0); HEMOGLOBIN 8.9 g/dl (12.0-15.5); MEAN CORPUSCULAR HEMOGLOBIN 30.6 pg (27.0-33.0); MEAN CORPUSCULAR HGB CONC 32.4 g/dl (32.0-36.5); MEAN CORPUSCULAR VOLUME 94.5 fl (80.0-96.0); PLATELET COUNT, AUTOMATED 218 10^3/uL (150-450); RED BLOOD COUNT 2.91 10^6/uL (4.00-5.40); WHITE BLOOD COUNT 6.1 10^3/uL (4.0-10.0)
[2018-06-08 05:46] LABS: ALBUMIN 1.6 GM/DL (3.2-5.2); ALT/SGPT 31 U/L (12-78); BILIRUBIN,TOTAL 0.4 MG/DL (0.2-1.0); BLOOD UREA NITROGEN 21 MG/DL (7-18); CALCIUM LEVEL 7.4 MG/DL (8.8-10.2); CARBON DIOXIDE LEVEL 25 MEQ/L (21-32); CHLORIDE LEVEL 109 MEQ/L (98-107); CREATININE FOR GFR 0.55 MG/DL (0.55-1.30); GLOMERULAR FILTRATION RATE > 60.0 (>32); GLUCOSE, FASTING 120 MG/DL (70-100); MAGNESIUM LEVEL 1.7 MG/DL (1.8-2.4); PHOSPHORUS LEVEL 3.3 MG/DL (2.5-4.9); POTASSIUM SERUM 3.8 MEQ/L (3.5-5.1); SODIUM LEVEL 141 MEQ/L (136-145); TOTAL PROTEIN 5.2 GM/DL (6.4-8.2)
[2018-06-08] MEDS: SODIUM CHLORIDE 0.9% INJ 10 ML SYR IV SCH ×2 (06:00→17:56)
[2018-06-08] MEDS: METOPROLOL SUCC (TopROL XL) 100MG *XL* TAB PO SCH ×2 (06:57→17:55)
[2018-06-08] MEDS ORDERED: MAG SULF 1GM/100ML (MAG RUN) 1 GM in APPROPRIATE DILUENT 1 EA IV ONE (09:00)
[2018-06-08] MEDS ORDERED: POTASSIUM CHLORIDE 10 MEQ SR TABLET PO ONE (09:00)
[2018-06-08] MEDS: LOPERAMIDE 2 MG CAP PO SCH ×2 (09:07→21:00)
[2018-06-08] MEDS: PANTOPRAZOLE 40MG TAB (PROTONIX) PO SCH (09:07)
[2018-06-08] MEDS: NYSTATIN 100,000 UNITS/GM TOPICAL PWD 15 GM TOP SCH ×2 (09:07→21:00)
[2018-06-08] MEDS: SODIUM CHLORIDE 0.9% INJ 10 ML SYR IV PRN ×2 (10:16→20:59)
[2018-06-08 13:32] LABS: HEMATOCRIT 28.8 % (36.0-47.0); HEMOGLOBIN 9.1 g/dl (12.0-15.5)
--- NOTE | 2018-06-08 15:49 | IPNPDOC ---
Date Seen The patient was seen on 06/08/18. Progress Note Subjective: Pt denies any sob, chest pain, pressure, tightness, dizziness,or lighthead edness. she c/o generalized weakness. Telemetry continues to have nsvt with 14 beats last night. k and mg were supplemented this am. Objective: Vitals (See below) General: Lying in bed, no acute distress, comfortable, Awake / Alert HEENT: NC, AT CVS: IrIr, +S1S2 Lungs: Fair air entry b/l, -w/r/r Abdomen: Soft, ND, NT, +BSx4, midline incision - healing well Extremities: Trace pitting edema, - Calf tenderness laboratory data, imaging studies, microbiology: reviewed, pls see below ECHO: CONCLUSIONS: 1. Study is of very limited technical quality. 2. Normal left ventricle (LV) size. Probably normal or near normal LV systolic function based on very limited visualization. Septal wall motion abnormality likely related to underlying conductive system disease. 3. Unable to comment on the right ventricular systolic function. 4. Left atrial enlargement. 5. Aortic sclerosis with trivial stenosis 6. Mild mitral insufficiency. 7. Probably normal central venous pressure. 8. At least moderate pulmonary hypertension. COMMENT: Subacute bacterial endocarditis (SBE) prophylaxis is not recommended. DD: Felicita Fleming MD 05/26/18 [id number] Assessment and plan: An 82-year-old woman with a history of hypertension and hyperlipidemiapresented to the ER with 2-3days h/o diarrhea, and sudden abdominal pain about 6-8 hours prior to ER visit, and was subsequently diagnoses with ischemic colitis s/p right colectomy and gastrostomy tube placement, with postop new onset atrial fibrillation with a rapid ventricular response, s/p beta marcia, digoxin, intravenous (IV) Cardizem. Ischemic colitis secondary to newly diagnosed paroxysmal A. fib -s/p right hemicolectomy -with ongoing melanotic stools -H&H monitoring, and pt agreeable to blood transfusion if needed for symptoms or if hgb<8. -s/p 1 unit rbc overnight 03/08/18 for hgb 7.9, with repeat hgb9. -defer to surgery to decide on further gi bleed mgt. NSVT -telemetry 14 beats 06/04/18, 11 beats 06/05/18, asx with vitals stable; 7beats 06/07/18 6am with normal mg, 14 beats 06/08/18. -on metoprolol -mg 1.6, which was supplemented with 2grams iv mag runs. repeat mg q6hrs to optimize -k 4.3 06/05/18. -Echo reviewed Atrial fibrillation with rapid ventricular response , controlled - c/w metoprolol dose 100 mg PO BID - CHADS VASc: minimum of 5 - c/w Therapeutic Lovenox; RE: Repeat melanotic stools reported - Cardiology on consult Acute GI bleed -with Melanotic stools - Patient remains hemodynamically stable - Will check H&H [id number] - Will transfuse as needed - Repeat occult stool - Will DC anticoagulation if positive Anasarca and bilateral pleural effusions - likely 2/2 IV hydration, hypoalbuminemia, acute renal failure - Not requiring supplemental oxygen - Urinary catheter to monitor I&Os - s/p Lasix; will hold for now - Will taper down oxygen to maintain saturation >90% Hypomagnesemia -mg 1.6 06/05/18, supplemented to goal of 2 due to NSVT 11-14 beats on Tele, asx and vitals stable. Leukocytosis - possibly 2/2 reactive etiology 2/2 Surgery, however possibly 2/2 underlying intra-abdominal infection - Patient remains afebrile and hemodynamically stable - CRP is trending down - CT abdomen 05/30: No intra-abdominal abscess seen, postoperative changes, cholelithiasis, large left renal cyst again noted, ileus pattern in the bowel gas. Unlikely intra abdominal source. - CXR 05/30: pleural effusions and cardiomegaly. Unlikely pulmonary source. - Liquid brown stools are being reported - C.diff PCR repeat pending - c/w Meropenem will repeat PCT - if negative will discontinue Decompensated Diastolic CHF - possibly 2/2 tachyarrhythmia - Physical with trace to 1+ pitting edema - CXR 05/30: cardiomegaly, bilateral pleural effusions - s/p Lasix; will hold Lasix today Hypertension - BP well controlled - c/w metoprolol s/p SUMMER - resolved - likely 2/2 urinary retention 2/2 surgical procedure (resolved) - Schmitz catheter in place; will discontinue within next 24-48 hours if surgery agrees Abnormal blood culture: x1 culture, likely contaminant (resolved) - No growth on repeat cultures GI prophylaxis - c/w Protonix Disposition: - Will likely transition patient to sub-acute rehab for continued physical therapy VS, I&O, 24H, Fishbone Vital Signs/I&O Vital Signs Date Time Temp Pulse Resp B/P (MAP) Pulse Ox O2 Delivery O2 Flow Rate FiO2 06/08/18 12:00 97.9 80 22 138/60 (86) 98 06/07/18 00:15 1.0 06/05/18 07:22 Nasal Cannula I&O- Last 24 Hours up to 6 AM 06/08/18 06:00 Intake Total 1455 ml Output Total 750 ml Balance 705 ml Laboratory Data 24H LABS Laboratory Tests 2 06/08/18 00:03: Bedside Glucose (Misc Panel) 149H 06/08/18 04:58: Nucleated Red Blood Cells % (auto) 0.5H, Anion Gap 7L, Glomerular Filtration Rate > 60.0, Blood Urea Nitrogen 21H, Creatinine 0.55, Sodium Level 141, Potassium Level 3.8, Chloride Level 109H, Carbon Dioxide Level 25, Calcium Level 7.4L, Phosphorus Level 3.3, Aspartate Amino Transf (AST/SGOT) 27, Alanine Aminotransferase (ALT/SGPT) 31, Alkaline Phosphatase 134H, Total Bilirubin 0.4, Total Protein 5.2L, Albumin 1.6L, Magnesium Level 1.7L, Albumin/Globulin Ratio 0.44L 06/08/18 11:49: Bedside Glucose (Misc Panel) 143H CBC/BMP Laboratory Tests 06/07/18 18:03 06/08/18 04:58 Red Blood Count 2.91 L, Mean Corpuscular Volume 94.5, Mean Corpuscular Hemoglobin 30.6, Mean Corpuscular Hemoglobin Concent 32.4, Red Cell Distribution Width 16.7 H, Calcium Level 7.4 L, Phosphorus Level 3.3, Aspartate Amino Transf (AST/SGOT) 27, Alanine Aminotransferase (ALT/SGPT) 31, Alkaline Phosphatase 134 H, Total Bilirubin 0.4, Total Protein 5.2 L, Albumin 1.6 L 06/08/18 13:17 Microbiology Microbiology 06/03/18 Stool Occult Blood (BEN) - Final, Complete 05/29/18 Stool Occult Blood (BEN) - Final, Complete 05/31/18 MRSA Screen - Final, Complete AKASH,HALLIE C. MD Jun 08, 2018 15:49
[2018-06-08 19:30] LABS: MAGNESIUM LEVEL 1.7 MG/DL (1.8-2.4); POTASSIUM SERUM 4.4 MEQ/L (3.5-5.1)
[2018-06-08 20:02] LABS: HEMATOCRIT 29.7 % (36.0-47.0); HEMOGLOBIN 9.4 g/dl (12.0-15.5)
[2018-06-09] VITALS (9 sets, daily range): BP systolic 92–138; BP diastolic 50–96
[2018-06-09] MEDS: IPRATROPIUM 0.5MG/ALBUTEROL 2.5MG INH SOL UD 3ML (DUONEB)(J7620) NEB SCH ×4 (02:00→18:13)
[2018-06-09] MEDS: METOPROLOL SUCC (TopROL XL) 100MG *XL* TAB PO SCH ×2 (06:36→17:25)
[2018-06-09] MEDS: SODIUM CHLORIDE 0.9% INJ 10 ML SYR IV SCH ×2 (06:37→17:26)
[2018-06-09 07:11] LABS: HEMOGLOBIN 9.3 g/dl (12.0-15.5); MEAN CORPUSCULAR HEMOGLOBIN 30.9 pg (27.0-33.0); MEAN CORPUSCULAR VOLUME 99.7 fl (80.0-96.0); PLATELET COUNT, AUTOMATED 201 10^3/uL (150-450); RED BLOOD COUNT 3.01 10^6/uL (4.00-5.40); WHITE BLOOD COUNT 5.2 10^3/uL (4.0-10.0)
[2018-06-09] MEDS ORDERED: DIGOXIN INJ 0.5 MG/2 ML AMP (J1160) IV STA (07:30)
[2018-06-09 07:47] LABS: ALBUMIN 1.6 GM/DL (3.2-5.2); ALT/SGPT 32 U/L (12-78); BILIRUBIN,TOTAL 0.5 MG/DL (0.2-1.0); BLOOD UREA NITROGEN 18 MG/DL (7-18); CALCIUM LEVEL 7.9 MG/DL (8.8-10.2); CARBON DIOXIDE LEVEL 20 MEQ/L (21-32); CHLORIDE LEVEL 114 MEQ/L (98-107); CREATININE FOR GFR 0.51 MG/DL (0.55-1.30); GLOMERULAR FILTRATION RATE > 60.0 (>32); GLUCOSE, FASTING 118 MG/DL (70-100); MAGNESIUM LEVEL 1.9 MG/DL (1.8-2.4); POTASSIUM SERUM 4.7 MEQ/L (3.5-5.1); SODIUM LEVEL 142 MEQ/L (136-145); TOTAL PROTEIN 5.6 GM/DL (6.4-8.2)
[2018-06-09] MEDS: MAG SULF 1GM/100ML (MAG RUN) 1 GM in APPROPRIATE DILUENT 1 EA IV SCH ×2 (07:50→09:06)
[2018-06-09] MEDS: ONDANSETRON 4MG/2ML VIAL (J2405) IV PRN (07:50)
[2018-06-09] MEDS: FUROSEMIDE 20 MG/2 ML VIAL (J1940) IV SCH ×2 (09:05→17:25)
[2018-06-09] MEDS: LOPERAMIDE 2 MG CAP PO SCH ×2 (09:05→20:29)
[2018-06-09] MEDS: PANTOPRAZOLE 40MG TAB (PROTONIX) PO SCH (09:05)
[2018-06-09] MEDS: MAGNESIUM CHLORIDE 64 MG TABCR (SLO MAG) PO SCH (09:06)
[2018-06-09] MEDS: NYSTATIN 100,000 UNITS/GM TOPICAL PWD 15 GM TOP SCH ×2 (09:06→20:29)
--- NOTE | 2018-06-09 11:52 | IPNPDOC ---
Date Seen The patient was seen on 06/09/18. Progress Note Subjective: vitals remain stable and pt denies any clinical symptoms despite 14beats nsvt again on telemetry. cxr 06/09/18 pending. on bid lasix Pt denies any sob, chest pain, pressure, tightness, dizziness,or lightheadedness. she c/o generalized weakness. Telemetry continues to have nsvt this morning. k was normal . mg was supplemented for goal of 2. Objective: Vitals (See below) General: Lying in bed, no acute distress, comfortable, Awake / Alert HEENT: NC, AT CVS: IrIr, +S1S2 Lungs: Fair air entry b/l, -w/r/r Abdomen: Soft, ND, NT, +BSx4, midline incision - healing well Extremities: Trace pitting edema, - Calf tenderness laboratory data, imaging studies, microbiology: reviewed, pls see below ECHO: CONCLUSIONS: 1. Study is of very limited technical quality. 2. Normal left ventricle (LV) size. Probably normal or near normal LV systolic function based on very limited visualization. Septal wall motion abnormality likely related to underlying conductive system disease. 3. Unable to comment on the right ventricular systolic function. 4. Left atrial enlargement. 5. Aortic sclerosis with trivial stenosis 6. Mild mitral insufficiency. 7. Probably normal central venous pressure. 8. At least moderate pulmonary hypertension. COMMENT: Subacute bacterial endocarditis (SBE) prophylaxis is not recommended. DD: Felicita Fleming MD 05/26/18 [id number] Assessment and plan: An 82-year-old woman with a history of hypertension and hyperlipidemiapresented to the ER with 2-3days h/o diarrhea, and sudden abdominal pain about 6-8 hours prior to ER visit, and was subse quently diagnoses with ischemic colitis s/p right colectomy and gastrostomy tube placement, with postop new onset atrial fibrillation with a rapid ventricular response, s/p beta marcia, digoxin, intravenous (IV) Cardizem. Ischemic colitis secondary to newly diagnosed paroxysmal A. fib -s/p right hemicolectomy -with ongoing melanotic stools -H&H monitoring, and pt agreeable to blood transfusion if needed for symptoms or if hgb<8. -s/p 1 unit rbc overnight 03/08/18 for hgb 7.9, with repeat hgb9. -defer to surgery to decide on further gi bleed mgt. NSVT -telemetry 14 beats 06/04/18, 11 beats 06/05/18, asx with vitals stable; 7beats 06/07/18 6am with normal mg, 14 beats 06/08/18. 14 beats on 06/09/18 -on metoprolol -mg 1.6, which was supplemented with 2grams iv mag runs. repeat mg q6hrs to op timize -k 4.3 06/05/18. -Echo reviewed Atrial fibrillation with rapid ventricular response , controlled - c/w metoprolol dose 100 mg PO BID - CHADS VASc: minimum of 5 - c/w Therapeutic Lovenox; RE: Repeat melanotic stools reported - Cardiology on consult Acute GI bleed -with Melanotic stools - Patient remains hemodynamically stable - Will check H&H [id number] - Will transfuse as needed - Repeat occult stool - Will DC anticoagulation if positive Anasarca and bilateral pleural effusions - likely 2/2 IV hydration, hypoalbuminemia, acute renal failure - Not requiring supplemental oxygen - Urinary catheter to monitor I&Os - bid lasix - Will taper down oxygen to maintain saturation >90% Hypomagnesemia -mg 1.6 06/05/18, supplemented to goal of 2 due to NSVT 11-14 beats on Tele, asx and vitals stable. Leukocytosis - possibly 2/2 reactive etiology 2/2 Surgery, however possibly 2/2 underlying intra-abdominal infection - Patient remains afebrile and hemodynamically stable - CRP is trending down - CT abdomen 05/30: No intra-abdominal abscess seen, postoperative changes, cholelithiasis, large left renal cyst again noted, ileus pattern in the bowel gas. Unlikely intra abdominal source. - CXR 05/30: pleural effusions and cardiomegaly. Unlikely pulmonary source. - Liquid brown stools are being reported -s/p meropenem Decompensated Diastolic CHF - possibly 2/2 tachyarrhythmia - Physical with trace to 1+ pitting edema - CXR 05/30: cardiomegaly, bilateral pleural effusions - on bid lasix Hypertension - BP well controlled - c/w metoprolol s/p SUMMER - resolved - likely 2/2 urinary retention 2/2 surgical procedure (resolved) - Schmitz catheter in place; will discontinue within next 24-48 hours if surgery agrees Abnormal blood culture: x1 culture, likely contaminant (resolved) - No growth on repeat cultures GI prophylaxis - c/w Protonix Disposition: - Will likely transition patient to sub-acute rehab for continued physical therapy VS, I&O, 24H, Fishbone Vital Signs/I&O Vital Signs Date Time Temp Pulse Resp B/P (MAP) Pulse Ox O2 Delivery O2 Flow Rate FiO2 06/09/18 08:25 126 06/09/18 06:36 118/62 (80) 06/09/18 04:00 96.7 20 92 06/07/18 00:15 1.0 06/05/18 07:22 Nasal Cannula I&O- Last 24 Hours up to 6 AM 06/09/18 06:00 Intake Total 1240 ml Output Total 750 ml Balance 490 ml Laboratory Data 24H LABS Laboratory Tests 2 06/08/18 17:20: Bedside Glucose (Misc Panel) 108 06/08/18 18:58: Magnesium Level 1.7L 06/09/18 06:53: Magnesium Level 1.9, Nucleated Red Blood Cells % (auto) 0.6H, Anion Gap 8, Glomerular Filtration Rate > 60.0, Blood Urea Nitrogen 18, Creatinine 0.51L, Sodium Level 142, Potassium Level 4.7, Chloride Level 114H, Carbon Dioxide Level 20L, Calcium Level 7.9L, Aspartate Amino Transf (AST/SGOT) 29, Alanine Aminotran sferase (ALT/SGPT) 32, Alkaline Phosphatase 142H, Total Bilirubin 0.5, Total Protein 5.6L, Albumin 1.6L, Albumin/Globulin Ratio 0.40L CBC/BMP Laboratory Tests 06/08/18 13:17 06/08/18 18:58 06/09/18 06:53 Red Blood Count 3.01 L, Mean Corpuscular Volume 99.7 H, Mean Corpuscular Hemoglobin 30.9, Mean Corpuscular Hemoglobin Concent 31.0 L, Red Cell Distribution Width 16.8 H, Calcium Level 7.9 L, Aspartate Amino Transf (AST/SGOT) 29, Alanine Aminotransferase (ALT/SGPT) 32, Alkaline Phosphatase 142 H, Total Bilirubin 0.5, Total Protein 5.6 L, Albumin 1.6 L Microbiology Microbiology 06/03/18 Stool Occult Blood (BEN) - Final, Complete 05/31/18 MRSA Screen - Final, Complete HALLIE BUSTOS MD Jun 09, 2018 11:52
--- NOTE | 2018-06-09 18:18 | IPN ---
DATE: 06/09/2018 HISTORY: The patient is now postoperative day #18 from exploratory laparotomy and an extended right hemicolectomy for ischemic bowel. She has done well from the surgical aspects of her care but remains quite weak. She has also been having issues with atrial fibrillation with intermittent episodes of a rapid ventricular response. She has been working with physical therapy, and it seems that her diet has improved recently. Vital signs show that she has been afebrile over the past 24 hours. Her pulse has ranged between 74-126. Blood pressure is good, and her room air oxygen saturation is normal. Intake and output: Yesterday she had a 1120 in with 525 recorded out. She did have five bowel movements recorded yesterday. PHYSICAL EXAMINATION: The patient is sitting up in a chair at the bedside eating some lunch. She reports that she feels quite fatigued and that she thinks she was overworked yesterday or this morning. She is eating some salad and peas. Heart exam shows an irregular rhythm. The abdomen is soft and nontender. Laboratory studies show that today she has a white count of 5, hemoglobin 9, hematocrit 30, and platelet count of 201,000. Her chemistry profile shows a sodium of 142, potassium 4.7, chloride 114, CO2 of 20, BUN of 18, creatinine 0.5, and a glucose of 118. Her total protein is 5.6 today with an albumin of 1.6. IMPRESSION: The patient continues to improve slowly and I believe is gaining some strength and eating better. Her nutritional values appear to be improving. She has been noted to have bilateral pleural effusions with some dependent edema, and I have started her on some twice-daily Lasix for now. PLAN: We will continue her care as is currently in place. She will need to continue physical therapy, and we will continue the Lasix for now and see how she does as we try to diurese her a bit. JENNIFER
[2018-06-09 20:34] LABS: MAGNESIUM LEVEL 1.8 MG/DL (1.8-2.4); POTASSIUM SERUM 3.9 MEQ/L (3.5-5.1)
[2018-06-10] VITALS (9 sets, daily range): BP systolic 104–151; BP diastolic 53–89
[2018-06-10] MEDS: IPRATROPIUM 0.5MG/ALBUTEROL 2.5MG INH SOL UD 3ML (DUONEB)(J7620) NEB SCH ×4 (00:49→20:32)
[2018-06-10] MEDS: METOPROLOL SUCC (TopROL XL) 100MG *XL* TAB PO SCH ×2 (06:03→18:10)
[2018-06-10] MEDS: SODIUM CHLORIDE 0.9% INJ 10 ML SYR IV SCH ×2 (06:04→18:11)
[2018-06-10 06:12] LABS: HEMATOCRIT 27.5 % (36.0-47.0); HEMOGLOBIN 8.8 g/dl (12.0-15.5); MEAN CORPUSCULAR HEMOGLOBIN 30.4 pg (27.0-33.0); MEAN CORPUSCULAR VOLUME 95.2 fl (80.0-96.0); PLATELET COUNT, AUTOMATED 215 10^3/uL (150-450); RED BLOOD COUNT 2.89 10^6/uL (4.00-5.40); WHITE BLOOD COUNT 5.7 10^3/uL (4.0-10.0)
[2018-06-10 06:23] LABS: ALBUMIN 1.7 GM/DL (3.2-5.2); ALT/SGPT 27 U/L (12-78); BILIRUBIN,TOTAL 0.4 MG/DL (0.2-1.0); BLOOD UREA NITROGEN 16 MG/DL (7-18); CALCIUM LEVEL 7.7 MG/DL (8.8-10.2); CARBON DIOXIDE LEVEL 26 MEQ/L (21-32); CHLORIDE LEVEL 104 MEQ/L (98-107); CREATININE FOR GFR 0.63 MG/DL (0.55-1.30); GLOMERULAR FILTRATION RATE > 60.0 (>32); GLUCOSE, FASTING 120 MG/DL (70-100); MAGNESIUM LEVEL 1.8 MG/DL (1.8-2.4); POTASSIUM SERUM 3.9 MEQ/L (3.5-5.1); SODIUM LEVEL 138 MEQ/L (136-145); TOTAL PROTEIN 5.3 GM/DL (6.4-8.2)
[2018-06-10] MEDS ORDERED: POTASSIUM CHLORIDE 10 MEQ SR TABLET PO ONE (06:45)
[2018-06-10] MEDS ORDERED: AMIODARONE HCL 150 MG in APPROPRIATE DILUENT 1 EA IV STA (08:01)
[2018-06-10] MEDS: MAG SULF 1GM/100ML (MAG RUN) 1 GM in APPROPRIATE DILUENT 1 EA IV SCH ×3 (08:03→09:59)
[2018-06-10] MEDS: MAGNESIUM CHLORIDE 64 MG TABCR (SLO MAG) PO SCH (08:03)
[2018-06-10] MEDS: PANTOPRAZOLE 40MG TAB (PROTONIX) PO SCH (08:04)
[2018-06-10] MEDS: LOPERAMIDE 2 MG CAP PO SCH ×2 (08:04→20:08)
[2018-06-10] MEDS: NYSTATIN 100,000 UNITS/GM TOPICAL PWD 15 GM TOP SCH ×2 (08:04→20:08)
[2018-06-10] MEDS: FUROSEMIDE 20 MG/2 ML VIAL (J1940) IV SCH ×2 (08:05→16:13)
--- NOTE | 2018-06-10 08:56 | ECGEPIP ---
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 Electronically Signed On 06-10-2018 8:56:22 EDT by Lavon Baldwin
[2018-06-10 08:57] LABS: MB/CK RELATIVE INDEX 6.38 (< OR =4); TROPONIN I 0.02 NG/ML (< 0.10)
--- NOTE | 2018-06-10 09:00 | ECGEPIP ---
Stationary ECG Study [facility] Test Date: 2018-06-10 Pat Name: CHERRI BLOOD Department: Room: H9322-47 Gender: F Natural Fabricator: : 1935 Requested By: HALLIE De Dios Order Number: [id number] Reading MD: Lavon Baldwin Measurements Intervals [place] Rate: 85 P: GA: 0 QRS: -24 QRSD: 134 T: 138 QT: 382 QTc: 455 Interpretive Statements Underlying atrial fibrillation with controlled ventricular response Left axis deviation Left bundle branch block No change from 06/09/18. Electronically Signed On 06-10-2018 9:00:21 EDT by Lavon Baldwin
--- NOTE | 2018-06-10 09:09 | REP ---
Portable chest, 07:53 a.m., single AP view, the patient is sitting: Comparison is 06/07/2018. The bilateral pleural effusions are unchanged. The right basilar atelectasis has decreased. Lung johnson otherwise clear. Cardiac size is enlarged, unchanged. The left upper extremity PICC line is unchanged. Impression: The right basilar atelectasis has decreased. There are no other changes. Electronically Signed by Mario Lira MD 06/09/2018 08:06 A
--- NOTE | 2018-06-10 13:56 | IPNPDOC ---
Date Seen The patient was seen on 06/10/18. Progress Note Subjective: Telemetry overnight: 31 beats Vtach despite k3.9, mg 1.8, and metoprolol bid. pt was asymptomatic and vitals were stable.Pt denies any sob, cp, palpitations, lightheadedness, dizziness, or near syncope. She is diuresing well on bid lasix without hypotension. NO signs of bleeding. H&H remains stable with hgb 8.8-9.4. Objective: Vitals (See below) General: Lying in bed, no acute distress, comfortable, Awake / Alert HEENT: NC, AT CVS: IrIr irregular, +S1S2 Lungs: Fair air entry b/l, -w/r/r Abdomen: Soft, ND, NT, +BSx4, midline incision - healing well Extremities: 1(+) pitting edema, - Calf tenderness laboratory data, imaging studies, microbiology: reviewed, pls see below ECHO: CONCLUSIONS: 1. Study is of very limited technical quality. 2. Normal left ventricle (LV) size. Probably normal or near normal LV systolic function based on very limited visualization. Septal wall motion abnormality likely related to underlying conductive system disease. 3. Unable to comment on the right ventricular systolic function. 4. Left atrial enlargement. 5. Aortic sclerosis with trivial stenosis 6. Mild mitral insufficiency. 7. Probably normal central venous pressure. 8. At least moderate pulmonary hypertension. COMMENT: Subacute bacterial endocarditis (SBE) prophylaxis is not recommended. DD: Felicita Fleming MD 05/26/18 [id number] Assessment and plan: An 82-year-old woman with a history of hypertension and hyperlipidemiapresented to the ER with 2-3days h/o diarrhea, and sudden abdominal pain about 6-8 hours prior to ER visit, and was subsequently diagnoses with ischemic colitis s/p right colectomy and gastrostomy tube placement, with postop new onset atrial fibrillation with a rapid ventricular response, s/p beta marcia, digoxin, intravenous (IV) Cardizem. Ischemic colitis secondary to newly diagnosed paroxysmal A. fib -s/p right hemicolectomy -with ongoing melanotic stools -H&H monitoring, and pt agreeable to blood transfusion if needed for symptoms or if hgb<8. -s/p 1 unit rbc overnight 03/08/18 for hgb 7.9, with repeat hgb9. -defer to surgery to decide on further gi bleed mgt. NSVT -telemetry 14 beats 06/04/18, 11 beats 06/05/18, asx with vitals stable; 7beats 06/07/18 6am with normal mg, 14 beats 06/08/18. 14 beats on 06/09/18, 31 beats 06/09/18 -on metoprolol bid -mg 1.6, which was supplemented with 2grams iv mag runs. repeat mg q6hrs to optimize -k 4.3 06/05/18. -Echo reviewed, card squires cycled -1 dose of amiodarone iv x 1 Atrial fibrillation with rapid ventricular response , controlled - c/w metoprolol dose 100 mg PO BID - CHADS VASc: minimum of 5 - c/w Therapeutic Lovenox; RE: Repeat melanotic stools reported - Cardiology on consult Acute GI bleed -with Melanotic stools - Patient remains hemodynamically stable - Will check H&H [id number] - Will transfuse as needed - Repeat occult stool - held anticoagulation Anasarca and bilateral pleural effusions - likely 2/2 IV hydration, hypoalbuminemia, acute renal failure - Not requiring supplemental oxygen - Urinary catheter to monitor I&Os - bid lasix - Will taper down oxygen to maintain saturation >90% Hypomagnesemia -mg 1.6 06/05/18, supplemented to goal of 2 due to NSVT 11-14 beats on Tele, asx and vitals stable. Leukocytosis - possibly 2/2 reactive etiology 2/2 Surgery, however possibly 2/2 underlying intra-abdominal infection - Patient remains afebrile and hemodynamically stable - CRP is trending down - CT abdomen 05/30: No intra-abdominal abscess seen, postoperative changes, cholelithiasis, large left renal cyst again noted, ileus pattern in the bowel gas. Unlikely intra abdominal source. - CXR 05/30: pleural effusions and cardiomegaly. Unlikely pulmonary source. - Liquid brown stools are being reported -s/p meropenem Decompensated Diastolic CHF - possibly 2/2 tachyarrhythmia - Physical with trace to 1+ pitting edema - CXR 05/30: cardiomegaly, bilateral pleural effusions - on bid lasix Hypertension - BP well controlled - c/w metoprolol s/p SUMMER - resolved - likely 2/2 urinary retention 2/2 surgical procedure (resolved) - Schmitz catheter in place; will discontinue within next 24-48 hours if surgery agrees Abnormal blood culture: x1 culture, likely contaminant (resolved) - No growth on repeat cultures GI prophylaxis - c/w Protonix Disposition: - Will likely transition patient to sub-acute rehab for continued physical therapy VS, I&O, 24H, Fishbone Vital Signs/I&O Vital Signs Date Time Temp Pulse Resp B/P (MAP) Pulse Ox O2 Delivery O2 Flow Rate FiO2 06/10/18 08:30 82 20 120/58 (78) 98 06/10/18 08:00 98.9 06/07/18 00:15 1.0 06/05/18 07:22 Nasal Cannula I&O- Last 24 Hours up to 6 AM 06/10/18 06:00 Intake Total 1900 ml Output Total 2000 ml Balance -100 ml Laboratory Data 24H LABS Laboratory Tests 2 06/09/18 19:49: Magnesium Level 1.8 06/10/18 05:11: Magnesium Level 1.8, Nucleated Red Blood Cells % (auto) 0.4H, Anion Gap 8, Glomerular Filtration Rate > 60.0, Blood Urea Nitrogen 16, Creatinine 0.63, Sodium Level 138, Potassium Level 3.9, Chloride Level 104, Carbon Dioxide Level 26, Calcium Level 7.7L, Aspartate Amino Transf (AST/SGOT) 22, Alanine Aminotransferase (ALT/SGPT) 27, Alkaline Phosphatase 134H, Total Bilirubin 0.4, Total Protein 5.3L, Albumin 1.7L, Albumin/Globulin Ratio 0.47L 06/10/18 08:21: Whole Blood Ionized Calcium 4.3L, Total Creatine Kinase 47, Creatine Kinase MB 3.0, Creatine Kinase MB Relative Index 6.38H, Troponin I 0.02 CBC/BMP Laboratory Tests 06/09/18 19:49 06/10/18 05:11 Red Blood Count 2.89 L, Mean Corpuscular Volume 95.2, Mean Corpuscular Hemoglobin 30.4, Mean Corpuscular Hemoglobin Concent 32.0, Red Cell Distribution Width 16.3 H, Calcium Level 7.7 L, Aspartate Amino Transf (AST/SGOT) 22, Alanine Aminotransferase (ALT/SGPT) 27, Alkaline Phosphatase 134 H, Total Bilirubin 0.4, Total Protein 5.3 L, Albumin 1.7 L Microbiology Microbiology 06/03/18 Stool Occult Blood (BEN) - Final, Complete 05/31/18 MRSA Screen - Final, Complete HALLIE BUSTOS MD Jun 10, 2018 13:53
[2018-06-10] MEDS ORDERED: CALCIUM GLUCONATE 1,000 MG in D5W MINI-BAG PLUS 100 ML IV ONE ×2 (14:00→16:00)
[2018-06-10] MEDS: POTASSIUM CHLORIDE 10 MEQ SR TABLET PO SCH (16:13)
[2018-06-10] MEDS: SODIUM CHLORIDE 0.9% INJ 10 ML SYR IV PRN (20:08)
--- NOTE | 2018-06-10 21:38 | IPN ---
DATE: 06/10/2018 HISTORY: The patient is now day #19 postoperative from an extended right hemicolectomy for ischemic bowel. She has done well from her surgery but has continuing problems with atrial fibrillation and cardiac problems. The nurse reports to me that the patient had a 31 or 32 beat run of ventricular tachycardia this morning and received a dose of amiodarone. The patient complains of being tired primarily. Vital signs show that she has been afebrile over the past 24 hours. Her pulse has range generally in the 80s and 90s over the last 24 hours. Blood pressure has been good and her oxygen saturation is fine. Intake and output shows that yesterday she had 1520 in with 2025 out. She has four bowel movements recorded. PHYSICAL EXAMINATION: The patient is lying quietly in the hospital bed. She complains only of fatigue. She is not having any nausea. She denies any abdominal pain and the abdomen is soft and nondistended. Laboratory studies today show a white count of 6, hemoglobin 9, hematocrit of 28 and platelet count of 215,000. Chemistry profile shows a normal set of electrolytes with BUN 16, creatinine 0.6 and a glucose of 120. Calcium is 7.7 with an ionized calcium of 4.3. The patient's troponin this morning was 0.02. Total protein 5.3 with an albumin of 1.7 and she has really made no great progress on her protein and albumin in some time. IMPRESSION: Patient has done well from the surgery aspect of her care but her cardiac issues and her poor nutrition remain as issues to be addressed. PLAN: I appreciate the care of the apns and the hospitalist in managing this patient's other medical issues. There are no active surgical problems at this time. JENNIFER
[2018-06-11] MEDS: IPRATROPIUM 0.5MG/ALBUTEROL 2.5MG INH SOL UD 3ML (DUONEB)(J7620) NEB SCH ×4 (02:00→20:26)
[2018-06-11 04:00] VITALS: BP 107/64
[2018-06-11 05:24] LABS: HEMATOCRIT 30.2 % (36.0-47.0); HEMOGLOBIN 9.6 g/dl (12.0-15.5); MEAN CORPUSCULAR HGB CONC 31.8 g/dl (32.0-36.5); MEAN CORPUSCULAR VOLUME 97.4 fl (80.0-96.0); PLATELET COUNT, AUTOMATED 209 10^3/uL (150-450)
[2018-06-11] MEDS: POTASSIUM CHLORIDE 10 MEQ SR TABLET PO SCH ×2 (05:24→17:15)
[2018-06-11] MEDS: METOPROLOL SUCC (TopROL XL) 100MG *XL* TAB PO SCH ×2 (05:28→17:21)
[2018-06-11] MEDS: SODIUM CHLORIDE 0.9% INJ 10 ML SYR IV SCH ×2 (05:29→17:22)
[2018-06-11 05:48] LABS: ALBUMIN 1.7 GM/DL (3.2-5.2); ALT/SGPT 28 U/L (12-78); BILIRUBIN,TOTAL 0.4 MG/DL (0.2-1.0); BLOOD UREA NITROGEN 14 MG/DL (7-18); CALCIUM LEVEL 7.6 MG/DL (8.8-10.2); CARBON DIOXIDE LEVEL 28 MEQ/L (21-32); CHLORIDE LEVEL 105 MEQ/L (98-107); CPK CREATINE PHOSPHOKINASE 37 U/L (26-192); CREATININE FOR GFR 0.67 MG/DL (0.55-1.30); GLOMERULAR FILTRATION RATE > 60.0 (>32); GLUCOSE, FASTING 115 MG/DL (70-100); MAGNESIUM LEVEL 1.8 MG/DL (1.8-2.4); SODIUM LEVEL 138 MEQ/L (136-145); TOTAL PROTEIN 5.5 GM/DL (6.4-8.2); TROPONIN I 0.02 NG/ML (< 0.10)
[2018-06-11 08:00] VITALS: BP 129/67
[2018-06-11] MEDS: LOPERAMIDE 2 MG CAP PO SCH ×2 (09:36→21:24)
[2018-06-11] MEDS: PANTOPRAZOLE 40MG TAB (PROTONIX) PO SCH (09:36)
[2018-06-11] MEDS: NYSTATIN 100,000 UNITS/GM TOPICAL PWD 15 GM TOP SCH ×2 (09:37→21:24)
[2018-06-11] MEDS: FUROSEMIDE 20 MG/2 ML VIAL (J1940) IV SCH ×2 (09:37→17:15)
[2018-06-11] MEDS: MAGNESIUM CHLORIDE 64 MG TABCR (SLO MAG) PO SCH (09:37)
[2018-06-11] MEDS: CALCIUM GLUCONATE 1,000 MG in D5W MINI-BAG PLUS 100 ML IV SCH ×2 (09:38→11:05)
--- NOTE | 2018-06-11 10:40 | IPNPDOC ---
Date Seen The patient was seen on 06/11/18. Progress Note Subjective: no issues on telemetry overnight. On Monday into Monday, pt had 31 beats Vtach despite k3.9, mg 1.8, and metoprolol bid. pt was asymptomatic and vitals were stable.Pt denies any sob, cp, palpitations, lightheadedness, dizziness, or near syncope. She is diuresing well on bid lasix without hypotension. NO signs of bleeding. H&H remains stable with hgb 8.8-9.4. Objective: Vitals (See below) General: Lying in bed, no acute distress, comfortable, Awake / Alert HEENT: NC, AT CVS: IrIr irregular, +S1S2 Lungs: Fair air entry b/l, -w/r/r Abdomen: Soft, ND, NT, +BSx4, midline incision - healing well Extremities: 1(+) pitting edema, - Calf tenderness laboratory data, imaging studies, microbiology: reviewed, pls see below ECHO: CONCLUSIONS: 1. Study is of very limited technical quality. 2. Normal left ventricle (LV) size. Probably normal or near normal LV systolic function based on very limited visualization. Septal wall motion abnormality likely related to underlying conductive system disease. 3. Unable to comment on the right ventricular systolic function. 4. Left atrial enlargement. 5. Aortic sclerosis with trivial stenosis 6. Mild mitral insufficiency. 7. Probably normal central venous pressure. 8. At least moderate pulmonary hypertension. COMMENT: Subacute bacterial endocarditis (SBE) prophylaxis is not recommended. DD: Felicita Fleming MD 05/26/18 [id number] Assessment and plan: An 82-year-old woman with a history of hypertension and hyperlipidemiapresented to the ER with 2-3days h/o diarrhea, and sudden abdominal pain about 6-8 hours prior to ER visit, and was subsequently diagnoses with ischemic colitis s/p right colectomy and gastrostomy tube placement, with postop new onset atrial fibrillation with a rapid ventricular response, s/p beta marcia, digoxin, intravenous (IV) Cardizem. Ischemic colitis secondary to newly diagnosed paroxysmal A. fib -s/p right hemicolectomy -with ongoing melanotic stools -H&H monitoring, and pt agreeable to blood transfusion if needed for symptoms or if hgb<8. -s/p 1 unit rbc overnight 03/08/18 for hgb 7.9, with repeat hgb9. -defer to surgery to decide on further gi bleed mgt. NSVT -telemetry 14 beats 06/04/18, 11 beats 06/05/18, asx with vitals stable; 7beats 06/07/18 6am with normal mg, 14 beats 06/08/18. 14 beats on 06/09/18, 31 beats 06/09/18 -on metoprolol bid -mg 1.6, which was supplemented with 2grams iv mag runs. repeat mg q6hrs to optimize -k 4.3 06/05/18. -Echo reviewed, card squires cycled -1 dose of amiodarone iv x 1 Atrial fibrillation with rapid ventricular response , controlled - c/w metoprolol dose 100 mg PO BID - CHADS VASc: minimum of 5 - c/w Therapeutic Lovenox; RE: Repeat melanotic stools reported - Cardiology on consult Acute GI bleed -with Melanotic stools - Patient remains hemodynamically stable - Will check H&H [id number] - Will transfuse as needed - Repeat occult stool - held anticoagulation Anasarca and bilateral pleural effusions - likely 2/2 IV hydration, hypoalbuminemia, acute renal failure - Not requiring supplemental oxygen - Urinary catheter to monitor I&Os - bid lasix - Will taper down oxygen to maintain saturation >90% Hypomagnesemia -mg 1.6 06/05/18, supplemented to goal of 2 due to NSVT 11-14 beats on Tele, asx and vitals stable. Leukocytosis - possibly 2/2 reactive etiology 2/2 Surgery, however possibly 2/2 underlying intra-abdominal infection - Patient remains afebrile and hemodynamically stable - CRP is trending down - CT abdomen 05/30: No intra-abdominal abscess seen, postoperative changes, cholelithiasis, large left renal cyst again noted, ileus pattern in the bowel gas. Unlikely intra abdominal source. - CXR 05/30: pleural effusions and cardiomegaly. Unlikely pulmonary source. - Liquid brown stools are being reported -s/p meropenem Decompensated Diastolic CHF - possibly 2/2 tachyarrhythmia - Physical with trace to 1+ pitting edema - CXR 05/30: cardiomegaly, bilateral pleural effusions - on bid lasix Hypertension - BP well controlled - c/w metoprolol s/p SUMMER - resolved - likely 2/2 urinary retention 2/2 surgical procedure (resolved) - Schmitz catheter in place; will discontinue within next 24-48 hours if surgery agrees Abnormal blood culture: x1 culture, likely contaminant (resolved) - No growth on repeat cultures GI prophylaxis - c/w Protonix Disposition: - Will likely transition patient to sub-acute rehab for continued physical therapy VS, I&O, 24H, Fishbone Vital Signs/I&O Vital Signs Date Time Temp Pulse Resp B/P (MAP) Pulse Ox O2 Delivery O2 Flow Rate FiO2 06/11/18 08:00 98.0 103 18 129/67 (87) 96 06/07/18 00:15 1.0 06/05/18 07:22 Nasal Cannula I&O- Last 24 Hours up to 6 AM 06/11/18 06:00 Intake Total 1360 ml Output Total 2350 ml Balance -990 ml Laboratory Data 24H LABS Laboratory Tests 2 06/11/18 05:09: Nucleated Red Blood Cells % (auto) 0.0, Anion Gap 5L, Glomerular Filtration Rate > 60.0, Blood Urea Nitrogen 14, Creatinine 0.67, Sodium Level 138, Potassium Level 4.0, Chloride Level 105, Carbon Dioxide Level 28, Calcium Level 7.6L, Aspartate Amino Transf (AST/SGOT) 28, Alanine Aminotransferase (ALT/SGPT) 28, Total Creatine Kinase 37, Alkaline Phosphatase 136H, Total Bilirubin 0.4, Total Protein 5.5L, Albumin 1.7L, Magnesium Level 1.8, Creatine Kinase MB 2.0, Creatine Kinase MB Relative Index 5.40H, Troponin I 0.02, Albumin/Globulin Ratio 0.45L CBC/BMP Laboratory Tests 06/11/18 05:09 Red Blood Count 3.10 L, Mean Corpuscular Volume 97.4 H, Mean Corpuscular Hemoglobin 31.0, Mean Corpuscular Hemoglobin Concent 31.8 L, Red Cell Distribution Width 16.2 H, Calcium Level 7.6 L, Aspartate Amino Transf (AST/SGOT) 28, Alanine Aminotransferase (ALT/SGPT) 28, Total Creatine Kinase 37, Alkaline Phosphatase 136 H, Total Bilirubin 0.4, Total Protein 5.5 L, Albumin 1.7 L Microbiology Microbiology 06/03/18 Stool Occult Blood (BEN) - Final, Complete AKASH,HALLIE C. MD Jun 11, 2018 10:40
[2018-06-11 12:00] VITALS: BP 130/78
[2018-06-11] MEDS: MAG SULF 1GM/100ML (MAG RUN) 1 GM in APPROPRIATE DILUENT 1 EA IV SCH ×2 (12:46→14:04)
[2018-06-11] MEDS ORDERED: METOPROLOL 5 MG/5 ML VIAL IV STA (14:29)
[2018-06-11] MEDS ORDERED: METOPROLOL SUCC *XL* 25MG TAB (TopROL *XL*) PO ONE (14:30)
[2018-06-11 14:40] VITALS: BP 102/60
[2018-06-11 16:00] VITALS: BP 108/58
[2018-06-11 20:00] VITALS: BP 117/65
[2018-06-12 02:07] VITALS: BP 139/69
[2018-06-12] MEDS: METOPROLOL SUCC (TopROL XL) 100MG *XL* TAB PO SCH ×2 (05:24→18:28)
[2018-06-12] MEDS: POTASSIUM CHLORIDE 10 MEQ SR TABLET PO SCH ×2 (05:25→18:25)
[2018-06-12] MEDS: SODIUM CHLORIDE 0.9% INJ 10 ML SYR IV SCH ×2 (05:25→18:25)
[2018-06-12 06:00] VITALS: BP 116/78
[2018-06-12 06:29] LABS: HEMATOCRIT 29.6 % (36.0-47.0); HEMOGLOBIN 9.4 g/dl (12.0-15.5); MEAN CORPUSCULAR HEMOGLOBIN 30.6 pg (27.0-33.0); MEAN CORPUSCULAR HGB CONC 31.8 g/dl (32.0-36.5); MEAN CORPUSCULAR VOLUME 96.4 fl (80.0-96.0); PLATELET COUNT, AUTOMATED 207 10^3/uL (150-450); RED BLOOD COUNT 3.07 10^6/uL (4.00-5.40)
[2018-06-12 07:00] LABS: ALBUMIN 1.7 GM/DL (3.2-5.2); ALT/SGPT 26 U/L (12-78); BILIRUBIN,TOTAL 0.5 MG/DL (0.2-1.0); BLOOD UREA NITROGEN 13 MG/DL (7-18); CALCIUM LEVEL 7.8 MG/DL (8.8-10.2); CARBON DIOXIDE LEVEL 28 MEQ/L (21-32); CHLORIDE LEVEL 103 MEQ/L (98-107); CREATININE FOR GFR 0.62 MG/DL (0.55-1.30); GLOMERULAR FILTRATION RATE > 60.0 (>32); GLUCOSE, FASTING 105 MG/DL (70-100); MAGNESIUM LEVEL 1.9 MG/DL (1.8-2.4); POTASSIUM SERUM 4.2 MEQ/L (3.5-5.1); SODIUM LEVEL 137 MEQ/L (136-145); TOTAL PROTEIN 5.3 GM/DL (6.4-8.2)
[2018-06-12] MEDS: IPRATROPIUM 0.5MG/ALBUTEROL 2.5MG INH SOL UD 3ML (DUONEB)(J7620) NEB SCH ×3 (07:59→20:11)
[2018-06-12 09:00] VITALS: BP 101/52
[2018-06-12] MEDS: PANTOPRAZOLE 40MG TAB (PROTONIX) PO SCH (10:33)
[2018-06-12] MEDS: LOPERAMIDE 2 MG CAP PO SCH ×4 (10:33→21:15)
[2018-06-12] MEDS: FUROSEMIDE 20 MG/2 ML VIAL (J1940) IV SCH ×2 (10:34→18:28)
[2018-06-12] MEDS: MAGNESIUM CHLORIDE 64 MG TABCR (SLO MAG) PO SCH (10:34)
[2018-06-12 10:35] VITALS: BP 119/56
[2018-06-12] MEDS: NYSTATIN 100,000 UNITS/GM TOPICAL PWD 15 GM TOP SCH ×2 (10:35→21:00)
[2018-06-12 14:00] VITALS: BP 123/60
[2018-06-12] MEDS ORDERED: PREVNAR 13 VACCINE SYRINGE (CPT CODE:90670) IM ONE (14:00)
[2018-06-12] MEDS: ACETAMINOPHEN TAB 650MG DOSE (2X325MG) PO PRN ×2 (16:10→22:48)
--- NOTE | 2018-06-12 18:57 | IPN ---
DATE: 06/12/2018 SUBJECTIVE: The patient is seen and examined in the room today. Later in the afternoon, I also had the chance to discuss patient's care with patient's [id number]. The patient denies any acute complaints; however, the patient continues to have poor oral intake. The patient is still complaining about generalized fatigue. Denied any abdominal pain. OBJECTIVE: VITAL SIGNS: Temperature is 97.2, pulse is 69, respirations 19, blood pressure is 101/52, pulse oximetry is 99% on room air. GENERAL: Fatigued. Patient is alert and awake. No sign of acute distress. HEENT: Normocephalic, atraumatic. Extraocular motor grossly intact. CARDIOVASCULAR: Positive S1, S2, irregularly irregular. LUNGS: Clear to auscultation bilaterally. ABDOMEN: Soft, nontender. Bowel sounds present. Postsurgical wound noted. No active discharge. No erythema. No tenderness. EXTREMITIES: Mild edema bilaterally. LABORATORY DATA: WBC is 5, hemoglobin 9.4, hematocrit 29.6, platelet count is 207. Sodium is 137, potassium 4.2, chloride 103, carbon dioxide 28, BUN 13, creatinine 0.62, GFR greater than 60, fasting glucose 109, calcium 7.8, magnesium 1.9, total bilirubin 0.5, AST 26, ALT 26, alkaline phosphatase is 125, total protein 5.3, albumin 1.7. ASSESSMENT AND PLAN: 1. Ischemic colitis. Suspect secondary to atrial fibrillation. Status post right hemicolectomy. Continue to monitor hemoglobin and hematocrit. According to the patient, there is no gross blood noted in the bowel movement. Continue followup with the surgical team. 2. Atrial fibrillation. Currently the heart rate is in the satisfactory range. I discussed with the surgical attending. Will resume the anticoagulation. 3. Nonsustained ventricular tachycardia, asymptomatic. Continue to follow the electrolytes. 4. Acute gastrointestinal bleed secondary to ischemic colitis. Status post surgical intervention. No active bleeding noted at this moment. 5. Anasarca with bilateral pleural effusion status post IV hydration, worsening with hypoalbuminemia. Status post multiple IV diuresis. Continue to monitor oxygenation. Currently the patient does not require oxygen support. 6. Decompensated diastolic heart failure. IV diuretic. 7. Hypertension. Blood pressure in satisfactory range. On Lasix, metoprolol. 8. Deep vein thrombosis (DVT) prophylaxis. Started on Eliquis.
[2018-06-12] MEDS: APIXABAN 5 MG TAB (ELIQUIS) PO SCH (21:15)
[2018-06-12 22:00] VITALS: BP 118/56
[2018-06-13] MEDS: IPRATROPIUM 0.5MG/ALBUTEROL 2.5MG INH SOL UD 3ML (DUONEB)(J7620) NEB SCH ×4 (02:00→20:00)
[2018-06-13] MEDS: POTASSIUM CHLORIDE 10 MEQ SR TABLET PO SCH ×2 (04:19→20:55)
[2018-06-13 06:00] VITALS: BP 130/73
[2018-06-13] MEDS: SODIUM CHLORIDE 0.9% INJ 10 ML SYR IV SCH ×2 (06:00→17:56)
[2018-06-13 06:09] LABS: HEMATOCRIT 32.6 % (36.0-47.0); HEMOGLOBIN 10.2 g/dl (12.0-15.5); MEAN CORPUSCULAR HEMOGLOBIN 30.4 pg (27.0-33.0); MEAN CORPUSCULAR HGB CONC 31.3 g/dl (32.0-36.5); PLATELET COUNT, AUTOMATED 199 10^3/uL (150-450); RED BLOOD COUNT 3.36 10^6/uL (4.00-5.40)
[2018-06-13] MEDS: SODIUM CHLORIDE 0.9% INJ 10 ML SYR IV PRN (06:15)
[2018-06-13] MEDS: METOPROLOL SUCC (TopROL XL) 100MG *XL* TAB PO SCH ×2 (06:15→17:57)
[2018-06-13 06:25] LABS: ALBUMIN 1.9 GM/DL (3.2-5.2); ALT/SGPT 27 U/L (12-78); BILIRUBIN,TOTAL 0.5 MG/DL (0.2-1.0); BLOOD UREA NITROGEN 15 MG/DL (7-18); CALCIUM LEVEL 7.8 MG/DL (8.8-10.2); CARBON DIOXIDE LEVEL 30 MEQ/L (21-32); CHLORIDE LEVEL 104 MEQ/L (98-107); GLOMERULAR FILTRATION RATE > 60.0 (>32); GLUCOSE, FASTING 96 MG/DL (70-100); MAGNESIUM LEVEL 1.9 MG/DL (1.8-2.4); POTASSIUM SERUM 4.1 MEQ/L (3.5-5.1); SODIUM LEVEL 137 MEQ/L (136-145); TOTAL PROTEIN 5.9 GM/DL (6.4-8.2)
[2018-06-13] MEDS: PANTOPRAZOLE 40MG TAB (PROTONIX) PO SCH (08:26)
[2018-06-13] MEDS: APIXABAN 5 MG TAB (ELIQUIS) PO SCH ×2 (08:26→20:55)
[2018-06-13] MEDS: MAGNESIUM CHLORIDE 64 MG TABCR (SLO MAG) PO SCH (08:26)
[2018-06-13] MEDS: LOPERAMIDE 2 MG CAP PO SCH ×4 (08:26→20:55)
[2018-06-13] MEDS: NYSTATIN 100,000 UNITS/GM TOPICAL PWD 15 GM TOP SCH ×2 (08:27→20:56)
[2018-06-13 08:30] VITALS: BP 121/61
[2018-06-13] MEDS: FUROSEMIDE 20 MG/2 ML VIAL (J1940) IV SCH ×2 (08:30→17:57)
[2018-06-13 14:00] VITALS: BP 141/66
[2018-06-13] MEDS: ACETAMINOPHEN TAB 650MG DOSE (2X325MG) PO PRN (17:56)
--- NOTE | 2018-06-13 18:28 | IPNPDOC ---
Text Note Date of Service The patient was seen on 06/13/18. NOTE SUBJECTIVE: The patient is seen and examined in the room today. Patient denies acute complaint. Denies abdominal pain. Patient still has poor oral intake. Patient is not if she has blood in stool because she did not pay attention to her stool color. OBJECTIVE: VITAL SIGNS: Listed below. GENERAL: Fatigued. Patient is alert and awake. No sign of acute distress. HEENT: Normocephalic, atraumatic. Extraocular motor grossly intact. CARDIOVASCULAR: Positive S1, S2, irregularly irregular. LUNGS: Mild bilateral crackles. ABDOMEN: Soft, nontender. Bowel sounds present. Postsurgical wound noted. No active discharge. No erythema. No tenderness. EXTREMITIES: Mild edema bilaterally. LABORATORY DATA: Listed below. ASSESSMENT AND PLAN: #. Ischemic colitis. - Suspect secondary to atrial fibrillation. Status post right hemicolectomy. Continue to monitor hemoglobin and hematocrit. Continue followup with the surgical team. - Continue encourage oral intake as tolerated. #. Atrial fibrillation. - Currently the heart rate is in the satisfactory range. - On anticoagulation. #. Nonsustained ventricular tachycardia, - Patient was asymptomatic. No recurrence. Continue to follow the electrolytes. #. Acute gastrointestinal bleed secondary to ischemic colitis. - Status post surgical intervention. No active bleeding noted at this moment. #. Anasarca with bilateral pleural effusion - Patient had IV hydration previously and it was worsened with hypoalbuminemia. Status post multiple IV diuresis. Continue to monitor oxygenation. - Continue IV diuretic #. Decompensated diastolic heart failure. IV diuretic. #. Hypertension. Blood pressure in satisfactory range. On Lasix, metoprolol. #. Deep vein thrombosis (DVT) prophylaxis. On Eliquis. VS,Fishbone, I+O VS, Fishbone, I+O Laboratory Tests 06/13/18 05:32 Red Blood Count 3.36 L, Mean Corpuscular Volume 97.0 H, Mean Corpuscular Hemoglobin 30.4, Mean Corpuscular Hemoglobin Concent 31.3 L, Red Cell Distribution Width 16.1 H, Calcium Level 7.8 L, Aspartate Amino Transf (AST/SGOT) 24, Alanine Aminotransferase (ALT/SGPT) 27, Alkaline Phosphatase 116, Total Bilirubin 0.5, Total Protein 5.9 L, Albumin 1.9 L Vital Signs Date Time Temp Pulse Resp B/P (MAP) Pulse Ox O2 Delivery O2 Flow Rate FiO2 06/13/18 17:57 92 133/86 06/13/18 14:00 99.6 18 97 06/07/18 00:15 1.0 I&O- Last 24 Hours up to 6 AM0 06/13/18 06:00 Intake Total 1500 ml Output Total 675 ml Balance 825 ml ABBE LARSON DO Jun 13, 2018 18:28
[2018-06-13] MEDS ORDERED: FUROSEMIDE 40 MG/4 ML VIAL (J1940) IV ONE (18:30)
[2018-06-13] MEDS: zolPIDEM TARTRATE 5 MG TAB PO PRN (20:55)
[2018-06-13 21:00] VITALS: BP 94/48
[2018-06-13 22:00] VITALS: BP 93/49
[2018-06-14] MEDS: IPRATROPIUM 0.5MG/ALBUTEROL 2.5MG INH SOL UD 3ML (DUONEB)(J7620) NEB SCH ×4 (02:00→20:00)
[2018-06-14] MEDS: METOPROLOL SUCC (TopROL XL) 100MG *XL* TAB PO SCH ×2 (05:47→17:05)
[2018-06-14] MEDS: SODIUM CHLORIDE 0.9% INJ 10 ML SYR IV PRN (05:48)
[2018-06-14] MEDS: SODIUM CHLORIDE 0.9% INJ 10 ML SYR IV SCH ×2 (05:48→17:07)
[2018-06-14 06:00] VITALS: BP 109/54
--- NOTE | 2018-06-14 06:15 | IPN ---
DATE OF VISIT: 06/12/2018 HISTORY OF PRESENT ILLNESS: The patient overall has been relatively stable and her major issues are cardiac issues and rehabilitation issues. She is been afebrile and has been having multiple bowel movements. We have had her on low-dose Imodium given that she had some little bit of a crampy abdominal pain prior to my being out of town for a week. During that time she has been having bowel movements. She has been tolerating diet but has been having some slow but progressive increase in activity, good urine output. PHYSICAL EXAMINATION: Overall on her physical exam her abdomen is soft, nondistended, nontender. Incision is healing nicely without any erythema, drainage or discharge. She is nondistended, nontender. Her hematocrit has been stable at about 29 or 30. Medicine has been following her closely with her usual issues. IMPRESSION AND PLAN: The patient at this point is stable from a surgical standpoint. I do feel that we can increase her Imodium, see if we can decrease the amount of bowel movements she is having and will increase it every morning and nightly the Imodium at just one tablet at this point which is still relatively low dose and we can increase it up to two tablets and possibly, if necessary change her over to Lomotil which may be more effective for her or even add some cholestyramine but will start with this and slowly make some progression with this issue. Her most important issue at this point, as discussed with the medicine service, is that she is status quo and there is no specific intervention they feel that is necessary and thus I feel that rehabilitation is probably her next step and I anticipate either subacute rehab or [facility] rehab will be much more appropriate for her at this point. In any case will continue with her and encourage her to increase activity, etc. over the next several days.
--- NOTE | 2018-06-14 06:20 | IPN ---
DATE: 06/13/2018 The patient seemed to be doing well this morning and overall no specific complaints. No nausea or vomiting. She has been tolerating a diet, but she states that she gets full relatively quickly. She states that she does not recall how often she is having bowel movements. When I look back on ins and outs, she is still having a fair bit of bowel movements. But it seems as though it has slowed down a little bit after starting her on the increased Imodium yesterday. Medicine service is still optimizing her and they have asked if they can restart her by mouth anticoagulation, which I think is very appropriate at this time. IMPRESSION AND PLAN: The patient from a GI surgical issue seems to be doing well. We may need to increase her to some Lomotil instead of Imodium if she is still having as much bowel movements as I am seeing her currently over the next couple days. Otherwise disposition is to rehab whenever that is possible for her or [facility] facility. Otherwise other issues as per medicine.
[2018-06-14 06:26] LABS: HEMOGLOBIN 9.4 g/dl (12.0-15.5); MEAN CORPUSCULAR HGB CONC 31.3 g/dl (32.0-36.5); MEAN CORPUSCULAR VOLUME 95.8 fl (80.0-96.0); PLATELET COUNT, AUTOMATED 195 10^3/uL (150-450); RED BLOOD COUNT 3.13 10^6/uL (4.00-5.40); WHITE BLOOD COUNT 4.6 10^3/uL (4.0-10.0)
[2018-06-14] MEDS: FUROSEMIDE 20 MG/2 ML VIAL (J1940) IV SCH (08:51)
[2018-06-14] MEDS: MAGNESIUM CHLORIDE 64 MG TABCR (SLO MAG) PO SCH (08:51)
[2018-06-14] MEDS: PANTOPRAZOLE 40MG TAB (PROTONIX) PO SCH (08:52)
[2018-06-14] MEDS: NYSTATIN 100,000 UNITS/GM TOPICAL PWD 15 GM TOP SCH ×2 (08:52→21:00)
[2018-06-14] MEDS: APIXABAN 5 MG TAB (ELIQUIS) PO SCH ×2 (08:52→22:54)
[2018-06-14] MEDS: POTASSIUM CHLORIDE 10 MEQ SR TABLET PO SCH ×2 (08:52→22:54)
[2018-06-14] MEDS ORDERED: FUROSEMIDE 40 MG/4 ML VIAL (J1940) IV ONE (10:30)
[2018-06-14 11:33] LABS: ALBUMIN 1.9 GM/DL (3.2-5.2); ALT/SGPT 21 U/L (12-78); BILIRUBIN,TOTAL 0.3 MG/DL (0.2-1.0); BLOOD UREA NITROGEN 15 MG/DL (7-18); CALCIUM LEVEL 7.6 MG/DL (8.8-10.2); CARBON DIOXIDE LEVEL 30 MEQ/L (21-32); CHLORIDE LEVEL 105 MEQ/L (98-107); CREATININE FOR GFR 0.72 MG/DL (0.55-1.30); GLOMERULAR FILTRATION RATE > 60.0 (>32); GLUCOSE, FASTING 88 MG/DL (70-100); MAGNESIUM LEVEL 1.9 MG/DL (1.8-2.4); POTASSIUM SERUM 4.3 MEQ/L (3.5-5.1); SODIUM LEVEL 139 MEQ/L (136-145); TOTAL PROTEIN 5.1 GM/DL (6.4-8.2)
[2018-06-14] MEDS: LOMOTIL 2.5MG/0.025MG TABLET PO SCH ×3 (11:38→22:53)
[2018-06-14 14:00] VITALS: BP 135/60
--- NOTE | 2018-06-14 16:22 | IPNPDOC ---
Text Note Date of Service The patient was seen on 06/14/18. NOTE SUBJECTIVE: The patient is seen and examined in the room today. Patient denies acute complaint. Denies abdominal pain. No shortness of breath. OBJECTIVE: VITAL SIGNS: Listed below. GENERAL: Fatigued. Patient is alert and awake. No sign of acute distress. HEENT: Normocephalic, atraumatic. Extraocular motor grossly intact. CARDIOVASCULAR: Positive S1, S2, irregularly irregular. LUNGS: Mild bilateral crackles. ABDOMEN: Soft, nontender. Bowel sounds present. Postsurgical wound noted. No active discharge. No erythema. No tenderness. EXTREMITIES: Positive edema bilaterally. LABORATORY DATA: Listed below. ASSESSMENT AND PLAN: #. Ischemic colitis. - Suspect secondary to atrial fibrillation. Status post right hemicolectomy. Continue to monitor hemoglobin and hematocrit. Continue followup with the surgical team. - Continue encourage oral intake as tolerated. - Anticipate discharging to rehab on 06/15/18 #. Decompensated diastolic heart failure. - Continue adjusting diuretic according to clinical picture. switch diuretic to oral formulation. #. Anasarca with bilateral pleural effusion - Status post multiple IV diuresis. Adjusting diuretic as tolerated. Continue to monitor oxygenation. #. Atrial fibrillation. - Currently the heart rate is in the satisfactory range. - On anticoagulation. #. Nonsustained ventricular tachycardia, - Patient was asymptomatic. No recurrence. Continue to follow the electrolytes. #. Acute gastrointestinal bleed secondary to ischemic colitis. - Status post surgical intervention. No active bleeding noted at this moment. #. Hypertension. Blood pressure in satisfactory range. On Lasix, metoprolol. #. Deep vein thrombosis (DVT) prophylaxis. On Eliquis. VS,Fishbone, I+O VS, Fishbone, I+O Laboratory Tests 06/14/18 05:06 Calcium Level 7.6 L, Aspartate Amino Transf (AST/SGOT) 25, Alanine Aminotransferase (ALT/SGPT) 21, Alkaline Phosphatase 91, Total Bilirubin 0.3, Total Protein 5.1 L, Albumin 1.9 L 06/14/18 06:06 Red Blood Count 3.13 L, Mean Corpuscular Volume 95.8, Mean Corpuscular Hemoglobin 30.0, Mean Corpuscular Hemoglobin Concent 31.3 L, Red Cell Distribution Width 16.0 H Vital Signs Date Time Temp Pulse Resp B/P (MAP) Pulse Ox O2 Delivery O2 Flow Rate FiO2 06/14/18 14:00 99.8 99 18 135/60 (66) 92 I&O- Last 24 Hours up to 6 AM 06/14/18 06:00 Intake Total 690 ml Output Total 0 ml Balance 690 ml ABBE LARSON DO Jun 14, 2018 16:22
[2018-06-14] MEDS: TORSEMIDE 20 MG TAB PO SCH (17:05)
[2018-06-14] MEDS: ACETAMINOPHEN TAB 650MG DOSE (2X325MG) PO PRN (17:05)
[2018-06-14 22:00] VITALS: BP 108/53
[2018-06-14] MEDS: zolPIDEM TARTRATE 5 MG TAB PO PRN (22:54)
[2018-06-15] MEDS: IPRATROPIUM 0.5MG/ALBUTEROL 2.5MG INH SOL UD 3ML (DUONEB)(J7620) NEB SCH ×3 (04:11→13:02)
[2018-06-15 05:57] VITALS: BP 100/53
[2018-06-15] MEDS: METOPROLOL SUCC (TopROL XL) 100MG *XL* TAB PO SCH (05:57)
[2018-06-15 06:00] VITALS: BP 101/49
[2018-06-15] MEDS: SODIUM CHLORIDE 0.9% INJ 10 ML SYR IV SCH (06:00)
[2018-06-15] MEDS ORDERED: ELIQ5TAB PO (07:33)
[2018-06-15] MEDS ORDERED: ACET1TAB55 PO (07:33)
[2018-06-15] MEDS ORDERED: DIPH2.5T15 PO (07:33)
[2018-06-15] MEDS ORDERED: PANT40TA3 PO (07:33)
[2018-06-15] MEDS ORDERED: TORS20TA2 PO (07:33)
[2018-06-15] MEDS ORDERED: KLOR10TA76 PO (07:33)
[2018-06-15] MEDS ORDERED: MAGN64TASA PO (07:33)
[2018-06-15] MEDS ORDERED: METO1TAB33 PO (07:33)
[2018-06-15] MEDS ORDERED: AMBI5TAB PO (07:33)
[2018-06-15] MEDS: POTASSIUM CHLORIDE 10 MEQ SR TABLET PO SCH (08:34)
[2018-06-15] MEDS: TORSEMIDE 20 MG TAB PO SCH (08:34)
[2018-06-15] MEDS: APIXABAN 5 MG TAB (ELIQUIS) PO SCH (08:34)
[2018-06-15] MEDS: MAGNESIUM CHLORIDE 64 MG TABCR (SLO MAG) PO SCH (08:35)
[2018-06-15] MEDS: PANTOPRAZOLE 40MG TAB (PROTONIX) PO SCH (08:35)
[2018-06-15] MEDS: NYSTATIN 100,000 UNITS/GM TOPICAL PWD 15 GM TOP SCH (08:35)
[2018-06-15] MEDS: LOMOTIL 2.5MG/0.025MG TABLET PO SCH ×2 (08:35→11:21)
[2018-06-15 09:14] LABS: CALCIUM LEVEL 7.6 MG/DL (8.8-10.2); GLOMERULAR FILTRATION RATE 56.5 (>32); MAGNESIUM LEVEL 1.7 MG/DL (1.8-2.4); POTASSIUM SERUM 3.9 MEQ/L (3.5-5.1)
--- NOTE | 2018-06-15 09:44 | DSES ---
DATE OF ADMISSION: 05/23/2018 DATE OF DISCHARGE: PRINCIPAL DIAGNOSIS: Ischemic right colon/transverse colon. PROCEDURES PERFORMED: Extended right colectomy with ileocolostomy, ileal colon anastomosis. BRIEF HISTORY OF PRESENT ILLNESS: The patient is a 82-year-old female who presented with an acute abdomen to the emergency room on 05/23 and had abdominal pain that started about 24-48 hours prior to admission, but over the last 48 hours the pain became worse and essentially came to the emergency room with peritoneal signs with evidence of acute abdomen, probable ischemic gut, possible infarcted colon on CT scan. HOSPITAL COURSE SUMMARY: The patient was admitted with the above diagnosis, did relatively well from a hemodynamic standpoint, but from a overall rehabilitation/general medical standpoint, she was slow to gain improvement. She was started on some total parenteral nutrition (TPN). She was kept nothing by mouth for several days allowing her ileus to resolve. Eventually she was progressed from a clear liquid diet to a regular diet. During this time however, early on when she was starting a regular diet she was started on anticoagulation and had some gastrointestinal (GI) bleeding. The GI bleeding was most likely secondary to some possible residual mild bowel ischemia and thus the anticoagulation was stopped at this point. She was felt with her atrial fibrillation and arrhythmia issues that she needed to be started on anticoagulation once we felt she was stable. Eventually, as she continued to make some progress, but very slow progress, she had her ashley removed, the drainage from her Cristhian-Torres decreased and had this removed. She was started to get up from bed to chair and is working with physical therapy. She was tolerating a regular diet and eventually was discharged to group home facility/rehabilitation center on Tylenol for discomfort, Eliquis, Lomotil, magnesium, metoprolol, pantoprazole, potassium, torsemide and zolpidem. She was to continue on her atorvastatin as well as PreserVision AREDS that she was on prior to admission. However, she was to stop her lisinopril hydrochlorothiazide. She should followup with her primary care provider in the next few weeks if she is discharged from the group home facility. Otherwise, followup with myself in 3-4 weeks or if she is not discharged from the group home facility, seen from a GI/surgical standpoint.
[2018-06-15 09:49] LABS: HEMATOCRIT 33.2 % (36.0-47.0); HEMOGLOBIN 10.4 g/dl (12.0-15.5); MEAN CORPUSCULAR HEMOGLOBIN 30.5 pg (27.0-33.0); MEAN CORPUSCULAR HGB CONC 31.3 g/dl (32.0-36.5); MEAN CORPUSCULAR VOLUME 97.4 fl (80.0-96.0); PLATELET COUNT, AUTOMATED 222 10^3/uL (150-450); RED BLOOD COUNT 3.41 10^6/uL (4.00-5.40); WHITE BLOOD COUNT 6.2 10^3/uL (4.0-10.0)
--- NOTE | 2018-06-15 09:50 | IPN ---
DATE: 06/14/2018 The patient overall has been tolerating her diet and has been slowly increasing her activity, but she really is just getting out of bed to chair and is needing significant assist still. She has not been able to progress to a point where we feel like she can go home and is mostly a rehabilitation issue/[facility]. Otherwise from a surgical standpoint, her major issue is some diarrhea associated with the significant amount of colon that we resected and I have changed her over to Imodium to Lomotil to see if that makes a difference. She is not having an excessive amount of diarrhea, but enough that it is bothersome to her and does create some incontinence issues after meals given her immobility issues. Thus, I would like to increase the amount of medication for this, i.e., the Imodium. Otherwise her abdomen is soft, nontender and nondistended. IMPRESSION AND PLAN: At this point, discharge planning is still working on discharge for her. Hopefully, she will be able to be discharged to the rehabilitation center in the next few days. She may need some mild modification of her medications for her diarrhea issues, but I anticipate to keep her on the Lomotil and possibly increasing it to 2 tablets prior to each meal may be necessary, but at this point will see how she does overnight and see if there are any necessary changes that we need to make. If she is discharged to home, my recommendation is that she follow up in 3-4 weeks for reevaluation at my office if she eventually gets home. Otherwise follow up with general surgery or GI at the outlying institution is also a reasonable option for her.
== END 2018-06-15 13:29 | DRG 329 ==
LOC: M ED 18:42 → M SDC 21:00 → M ICU 05-23 01:10 → M SDC 05-23 07:03 → M ICU 05-23 07:04 → M PCU 05-24 18:03 → M MSPAV 06-12 02:06
PROVIDERS: ADMIT Surgery; ATTEND Surgery
PROC: 0DHA4UZ Insertion of Feeding Device into Jejunum, Percutaneous Endoscopic Approach (ICD-10-PCS; 2018-05-22)
PROC: 0DTK0ZZ Resection of Ascending Colon, Open Approach (ICD-10-PCS; principal; 2018-05-22 22:00)
PROC: 0DBL0ZZ Excision of Transverse Colon, Open Approach (ICD-10-PCS; 2018-05-22 22:00)
PROC: 02HV33Z Insertion of Infusion Device into Superior Vena Cava, Percutaneous Approach (ICD-10-PCS; 2018-05-28)
PROC: 30233N1 Transfusion of Nonautologous Red Blood Cells into Peripheral Vein, Percutaneous Approach (ICD-10-PCS; 2018-06-06)
DX: K55.049 Acute infarction of large intestine, extent unspecified (principal); I50.33 Acute on chronic diastolic (congestive) heart failure; E87.2 Acidosis; I48.92 Unspecified atrial flutter; N17.9 Acute kidney failure, unspecified; I47.2 Ventricular tachycardia; K92.2 Gastrointestinal hemorrhage, unspecified; K56.7 Ileus, unspecified; J98.11 Atelectasis; I11.0 Hypertensive heart disease with heart failure; R33.9 Retention of urine, unspecified; E83.42 Hypomagnesemia; I48.0 Paroxysmal atrial fibrillation; I44.7 Left bundle-branch block, unspecified; E83.39 Other disorders of phosphorus metabolism; R09.02 Hypoxemia; E87.6 Hypokalemia; E78.00 Pure hypercholesterolemia, unspecified; Z79.899 Other long term (current) drug therapy; Z85.3 Personal history of malignant neoplasm of breast